=== PATIENT | male | born 1950 | race Caucasian/White ===

== ENCOUNTER 2017-04-24 13:21 | Emergency (ER) | payer OTHER, MEDICARE ==
[~2017-04-24] VITALS: Ht 176.5 cm; Wt 123.2 kg
[~2017-04-24 13:21] MED LIST: HYDC25 PO; LEVO75TA PO
[2017-04-24 13:25] VITALS: TEMP 36.9; Ht 176.5 cm; Wt 123.2 kg
[2017-04-24] MEDS ORDERED: ALBUT/IPRATROP 3MG/0.5MG NEB 3 ML VIAL INH STA ×2 (13:37→15:20)
--- NOTE | 2017-04-24 13:43 | EMERGENCY ROOM VISIT NOTE ---
History First contact with patient: 13:31 Chief Complaint: CONGESTION Stated Complaint: COUGH, LUNGS FEEL FULL History of Present Illness The patient is a 66 year old male who presents to the Emergency Room via private vehicle accompanied by female with complaints of "cough, lungs feel full ". The patient states that approximately 10 days ago, he began with chest congestion that was more like a cough. He states that this progressed into sinus congestion, and then a productive cough, with yellow/white foamy sputum. He states he has been taking Advil Cold and Sinus without relief. He has been feeling intermittent fevers and chills. He states that he has minimal chest pain post coughing. He states that his lungs feel sore. He has a history of bronchitis, but denies pneumonia. He denies history of blood clots, heart troubles or recent antibiotic use. He denies abdominal pain. Review of Systems A complete 10-point Review of Systems was discussed with the patient, with pertinent positives and negatives listed in the History of Present Illness. All remaining Review of Systems questions can be considered negative unless otherwise specified. Past Medical/Surgical History High blood pressure Family History Diabetes, heart disease, high blood pressure. Social History Smoking Status: Current Some Day Smoker Social History: Patient lives at home with . Is employed part-time. Feel safe at home. Admits to tobacco and alcohol use. Current/Historical Medications Scheduled Hydrochlorothiazide (Hydrochlorothiazide), 25 MG PO QAM Levothyroxine Sodium (Synthroid), 75 MCG PO QAM Allergies Coded Allergies: No Known Allergies (Verified , 04/24/17) Physical Exam Vital Signs Date Time Temp Pulse Resp B/P (MAP) Pulse Ox O2 Delivery O2 Flow Rate FiO2 04/24/17 18:42 92 16 125/71 93 04/24/17 18:22 96 Room Air 04/24/17 17:33 87 Room Air 04/24/17 17:33 Nasal Cannula 2.0 04/24/17 17:11 80 22 128/79 95 Room Air 04/24/17 16:43 63 04/24/17 15:56 63 18 93 Room Air 04/24/17 15:27 64 22 144/83 91 Room Air 04/24/17 13:51 65 04/24/17 13:44 Room Air 04/24/17 13:42 Room Air 04/24/17 13:25 36.9 70 20 173/102 91 Room Air Physical Exam VITAL SIGNS - Vital signs and nursing notes were reviewed. Patient is afebrile , hypertensive at 173/102, non-tachycardic and is saturating on room air at 91%. GENERAL -66-year-old male appearing his stated age who is in no acute distress. Communicates well with provider and answers questions appropriately. SKIN - Without rashes. No petechial rashes appreciated. HEAD - NC/AT. EYES - PERRL with EOMI bilaterally. Sclera anicteric. Palpebral conjunctiva pink and moist with no injection noted. EARS - No deformities of external structures noted on gross examination bilaterally. There are 2 small hearing aids indwelling. NOSE - Midline and without cyanosis. No epistaxis or purulent drainage noted. Septum midline without deviation or septal hematoma noted. MOUTH/OROPHARYNX - Without perioral cyanosis. Buccal mucosa pink and moist and without leukoplakia. Tongue midline with equal elevation of palate bilaterally. No tonsillar hypertrophy, erythema, or exudates noted. Fair dentition noted. NECK - Neck with FROM. Supple to palpation. No meningismus. LUNGS - Chest wall symmetric without accessory muscle use, intercostals retractions, or central cyanosis. There is wheezing, and diminished breath sounds noted bilaterally. CARDIAC - RRR with S1/S2. No murmur, rubs, or gallops appreciated. ABDOMEN - Abdominal contour without pulsations or visible masses. BS normoactive all four quadrants. No tenderness, palpable masses, hepatosplenomegaly, or ascites noted. Medical Decision & Procedures ER Provider Diagnostic Interpretation: CHEST 2 VIEWS ROUTINE HISTORY:66 yearsMaleCough, congestion, fever x 10 days COMPARISON: None available TECHNIQUE: Frontal and lateral views of the chest FINDINGS: Cardiomediastinal and hilar silhouettes are within normal limits. Lungs are mildly hypoinflated with bronchovascular crowding. There is no pneumothorax, pleural effusion, focal airspace consolidation or overt pulmonary edema. The bones are grossly intact. IMPRESSION: Mild pulmonary hypoinflation without acute cardiopulmonary process. The above report was generated using voice recognition software. It may contain grammatical, syntax or spelling errors. Electronically signed by: Jalil Blanco M.D. 04/24/2017 2:32 PM Dictated Date/Time: 04/24/2017 2:31 PM Laboratory Results 04/24/17 14:05 Red Blood Count 5.31, Mean Corpuscular Volume 86.4, Mean Corpuscular Hemoglobin 29.6, Mean Corpuscular Hemoglobin Concent 34.2, Mean Platelet Volume 9.5, Neutrophils (%) (Auto) 46.1, Lymphocytes (%) (Auto) 46.3, Monocytes (%) (Auto) 5.3, Eosinophils (%) (Auto) 1.5, Basophils (%) (Auto) 0.5, Neutrophils # (Auto) 4.76, Lymphocytes # (Auto) 4.78, Monocytes # (Auto) 0.55, Eosinophils # (Auto) 0.15, Basophils # (Auto) 0.05 04/24/17 14:05 Test 04/24/17 14:05 04/24/17 14:11 White Blood Count 10.32 K/uL (4.8-10.8) Red Blood Count 5.31 M/uL (4.7-6.1) Hemoglobin 15.7 g/dL (14.0-18.0) Hematocrit 45.9 % (42-52) Mean Corpuscular Volume 86.4 fL (80-100) Mean Corpuscular Hemoglobin 29.6 pg (25-34) Mean Corpuscular Hemoglobin Concent 34.2 g/dl (32-36) Platelet Count 167 K/uL (130-400) Mean Platelet Volume 9.5 fL (7.4-10.4) Neutrophils (%) (Auto) 46.1 % Lymphocytes (%) (Auto) 46.3 % Monocytes (%) (Auto) 5.3 % Eosinophils (%) (Auto) 1.5 % Basophils (%) (Auto) 0.5 % Neutrophils # (Auto) 4.76 K/uL (1.4-6.5) Lymphocytes # (Auto) 4.78 K/uL (1.2-3.4) Monocytes # (Auto) 0.55 K/uL (0.11-0.59) Eosinophils # (Auto) 0.15 K/uL (0-0.5) Basophils # (Auto) 0.05 K/uL (0-0.2) RDW Standard Deviation 42.5 fL (36.4-46.3) RDW Coefficient of Variation 13.4 % (11.5-14.5) Immature Granulocyte % (Auto) 0.3 % Immature Granulocyte # (Auto) 0.03 K/uL (0.00-0.02) Nucleated RBC Absolute Count (auto) 0.09 K/uL (0-0) Nucleated Red Blood Cells % 0.9 % Prothrombin Time 10.9 SECONDS (9.0-12.0) Prothromb Time International Ratio 1.0 (0.9-1.1) Activated Partial Thromboplast Time 28.5 SECONDS (21.0-31.0) Partial Thromboplastin Ratio 1.1 Anion Gap 8.0 mmol/L (3-11) Est Creatinine Clear Calc Drug Dose 100.2 ml/min Estimated GFR () 95.8 Estimated GFR (Non- 82.6 BUN/Creatinine Ratio 20.2 (10-20) Calcium Level 9.1 mg/dl (8.5-10.1) Total Bilirubin 0.5 mg/dl (0.2-1) Aspartate Amino Transf (AST/SGOT) 22 U/L (15-37) Alanine Aminotransferase (ALT/SGPT) 30 U/L (12-78) Alkaline Phosphatase 71 U/L (45-117) Total Protein 7.6 gm/dl (6.4-8.2) Albumin 3.8 gm/dl (3.4-5.0) Globulin 3.8 gm/dl (2.5-4.0) Albumin/Globulin Ratio 1.0 (0.9-2) Bedside Troponin I < 0.030 ng/ml (0-0.045) Medications Administered Medications (Trade) Dose Ordered Sig/Grace Route Start Time Stop Time Status Last Admin Dose Admin Albuterol/ Ipratropium (Duoneb) 3 ml NOW STAT INH 04/24/17 13:37 04/24/17 13:39 DC 04/24/17 13:57 3 ML Albuterol/ Ipratropium (Duoneb) 12 ml ONE STAT INH 04/24/17 15:20 04/24/17 15:22 DC 04/24/17 15:20 12 ML Albuterol (Ventolin Hfa Inhaler) 2 puffs NOW STAT INH 04/24/17 18:19 04/24/17 18:20 DC 04/24/17 18:37 2 PUFFS Medical Decision Patient was seen and evaluated as above. After obtaining a thorough history and physical examination IV access was initiated and the above workup was performed. Chest x-ray negative for acute process. Bedside EKG reveals sinus rhythm with first-degree AV block. Patient was informed upon this finding. CBC reveals no leukocytosis or anemia. There are absolute nucleated RBC. These were not identified in previous samples. Coag studies unremarkable. Patient's CMP reveals BUN elevated at 19. Creatinine 0.96, glucose 126. Troponin negative. I suspect the patient is likely experiencing bronchitis. He was given a 15 minute DuoNeb was reevaluated and feeling somewhat better. He was then given an hour-long and feeling much better. He was noted to be hypoxic, however after repositioned the oxygen was discontinued and he continued to hold appropriate oxygen saturations. Ambulatory pulse ox was obtained and found to be improved. Patient appears stable for outpatient management. He'll be given an albuterol inhaler for departure. He was educated upon worrisome symptoms which to return, had questions for discharge, and was discharged home in good condition. Patient was seen and evaluated by my attending. In evaluation treatment this patient following differential diagnoses were entertained: Pneumonia, influenza, bronchitis, among others. He was called today to see how he was doing. [address] call [address] place. He was doing well and will follow up today at 3:30 PM with is primary care provider. He is also to follow up regarding the absolute nucleated RBC elevation. Impression Primary Impression: Bronchitis Departure Information Dispostion Home / Self-Care Condition GOOD Referrals Damaso Venegas M.D. (PCP) Patient Instructions My [facility] Additional Instructions You were seen in the emergency department for your chest congestion, trouble breathing. At this time it is believed you're expecting bronchitis. Please use the albuterol inhaler with the chamber, 2 puffs every 4-6 hours as needed for wheezing. Please keep your scheduled follow-up with your family doctor tomorrow. Please rest, stay well-hydrated Please return to the emergency department with any new/concerning symptoms..
--- NOTE | 2017-04-24 14:33 | DIAGNOSTIC IMAGING REPORT ---
CHEST 2 VIEWS ROUTINE HISTORY:66 yearsMaleCough, congestion, fever x 10 days COMPARISON: None available TECHNIQUE: Frontal and lateral views of the chest FINDINGS: Cardiomediastinal and hilar silhouettes are within normal limits. Lungs are mildly hypoinflated with bronchovascular crowding. There is no pneumothorax, pleural effusion, focal airspace consolidation or overt pulmonary edema. The bones are grossly intact. IMPRESSION: Mild pulmonary hypoinflation without acute cardiopulmonary process. The above report was generated using voice recognition software. It may contain grammatical, syntax or spelling errors. Electronically signed by: Jalil Blanco M.D. 04/24/2017 2:32 PM Dictated Date/Time: 04/24/2017 2:31 PM
[2017-04-24 14:34] LABS: BASO % 0.5 %; BASO ABS # 0.05 K/uL (0-0.2); COMPLETE YES; EOS % 1.5 %; HEMATOCRIT 45.9 % (42-52); IG% 0.3 %; LYMPH % 46.3 %; LYMPH ABS # 4.78 K/uL (1.2-3.4); MEAN CELL VOLUME 86.4 fL (80-100); MEAN CORPUSCULAR HEMOGLOBIN 29.6 pg (25-34); MEAN CORPUSCULAR HGB CONC 34.2 g/dl (32-36); MEAN PLATELET VOLUME 9.5 fL (7.4-10.4); MONO % 5.3 %; NEUT % 46.1 %; PLATELET COUNT 167 K/uL (130-400); RED BLOOD COUNT 5.31 M/uL (4.7-6.1); WHITE BLOOD COUNT 10.32 K/uL (4.8-10.8)
[2017-04-24 14:44] LABS: PARTIAL THROMBOPLASTIN RATIO 1.1; PROTHROMBIN TIME (PATIENT) 10.9 SECONDS (9.0-12.0)
[2017-04-24 14:47] LABS: BUN/CREATININE RATIO 20.2 (10-20); CALCIUM 9.1 mg/dl (8.5-10.1); CREATININE 0.96 mg/dl (0.60-1.40); POTASSIUM 3.9 mmol/L (3.5-5.1)
[2017-04-24] MEDS ORDERED: HYDR25TA5 PO (15:02)
--- NOTE | 2017-04-24 15:22 | EMERGENCY ROOM VISIT NOTE ---
ED Visit Note First contact with patient: 13:31 66-year-old male with cough and congestion was fully evaluated by Hay Jim. Please see his note. I also independently evaluated the patient. The patient did have wheezes in all simons. Pulse ox on room air was 92%. Blood pressure was elevated. Chest x-ray does not reveal pneumonia.
[2017-04-24 15:56] VITALS: PULSE 63; O2SAT 93
[2017-04-24] MEDS ORDERED: ALBUTEROL HFA 8 GM INHALER INH STA (18:19)
[2017-04-24 18:42] VITALS: BP 125/71; PULSE 92; O2SAT 93
== END 2017-04-24 18:43 | disposition home or self-care (01) ==
LOC: C.EDB 13:23 → C.EDC 18:43
DX: J40 Bronchitis, not specified as acute or chronic (principal); I10 Essential (primary) hypertension; Z83.3 Family history of diabetes mellitus; Z82.49 Family history of ischemic heart disease and other diseases of the circulatory system; F17.200 Nicotine dependence, unspecified, uncomplicated

== ENCOUNTER → 2018-02-26 | Outpatient (CLI) | payer OTHER, MEDICARE ==
[~2018-02-26] MED LIST changes: -HYDC25 PO; +HYDR25TA5 PO
[2018-02-26 14:11] LABS: HEMATOCRIT 45.1 % (42-52); HEMOGLOBIN 15.3 g/dL (14.0-18.0); MEAN CELL VOLUME 88.1 fL (80-100); MEAN CORPUSCULAR HEMOGLOBIN 29.9 pg (25-34); MEAN CORPUSCULAR HGB CONC 33.9 g/dl (32-36); MEAN PLATELET VOLUME 10.2 fL (7.4-10.4); PLATELET COUNT 184 K/uL (130-400); RED CELL DISTRIBUTION WIDTH CV 13.8 % (11.5-14.5); RED CELL DISTRIBUTION WIDTH SD 44.5 fL (36.4-46.3); WHITE BLOOD COUNT 16.38 K/uL (4.8-10.8)
[2018-02-26 14:12] LABS: BASO % 0.5 %; BASO ABS # 0.09 K/uL (0-0.2); EOS % 0.7 %; EOS ABS # 0.12 K/uL (0-0.5); IG# 0.04 K/uL (0.00-0.02); LYMPH % 66.5 %; MONO % 2.7 %; MONO ABS # 0.45 K/uL (0.11-0.59); NEUT % 29.4 %; NEUT ABS # 4.78 K/uL (1.4-6.5)
[2018-02-26 14:45] LABS: ALBUMIN 4.1 gm/dl (3.4-5.0); ALKALINE PHOSPHATASE 62 U/L (45-117); ALT/SGPT 53 U/L (12-78); AST/SGOT 33 U/L (15-37); BLOOD UREA NITROGEN 20 mg/dl (7-18); CALCIUM 9.7 mg/dl (8.5-10.1); CARBON DIOXIDE 27 mmol/L (21-32); CREATININE 1.11 mg/dl (0.60-1.40); GLUCOSE 105 mg/dl (70-99); SODIUM 138 mmol/L (136-145); TOTAL PROTEIN 7.9 gm/dl (6.4-8.2)
== END | disposition home or self-care (01) ==
LOC: C.LABBFT 09:06
PROVIDERS: ATTEND Internal Medicine Hematology & Oncology
DX: C91.10 Chronic lymphocytic leukemia of B-cell type not having achieved remission (principal)

== ENCOUNTER 2019-07-31 06:13 | Inpatient (IN) ==
--- NOTE | 2019-07-05 11:00 | Anesthesiology Consultation ---
Date of Service July 05, 2019 Assessment & Plan (1) Encounter for pre-operative examination: Chart Review Chart Review: Pending: Refer to Additional Notes / Consult section (awaiting preop testing results) and Patient seen in Pre Admission Testing History Surgery Operation Date: 07/31/19 10:30 Proposed Procedures p Left Total Knee Arthroplasty - Kris Hubbard MD Height/Weight Height: 5 ft 9 in Weight: 120.7 kg Allergies Allergy/AdvReac Type Severity Reaction Status Date / Time No Known Allergies Allergy Verified 06/28/19 10:37 Medications Home Medications Medication Instructions Recorded Confirmed Last Taken aspirin [Aspir-81] 81 mg PO QAM 06/28/19 06/28/19 Unknown atorvastatin 10 mg PO HS 06/28/19 06/28/19 Unknown hydrochlorothiazide 25 mg PO QAM 06/28/19 06/28/19 Unknown levothyroxine 75 mcg PO QAM 06/28/19 06/28/19 Unknown metformin 500 mg PO BID 06/28/19 06/28/19 Unknown naproxen sodium [Aleve] 220 mg PO BID PRN 06/28/19 06/28/19 Unknown Past Medical History Medical History Arthritis Diabetes mellitus, type 2 Hyperlipidemia Hypertension Hypothyroidism 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 BROOKS-DX'[id number] 2016 Exercise / Class Metabolic Activity II 4-5 Yardwork/Stairs/Walk up hill Past Family History Family History Mother Family history of diabetes mellitus Past Surgical History Surgical History History of arthroscopy R/L KNEE History of bowel resection FOR PERFORATED DIVERTICULITIS History of herniorrhaphy Social History Smoking Status: Light tobacco smoker tobacco type: pipe Smoking cigarettes per day: PIPE 1 X A DAY X MANY YRS Do You Dip or Chew Tobacco: Yes (1 POUCH PER WEEK) Smoking End Date: QUIT CIGARETTES 20 YRS AGO Hx Alcohol Use: Yes Alcohol type: beer, wine and hard liquor alcohol intake frequency: a few times a week Hx Substance Use: No Physical Exam Vital Signs Last Vital Signs Temp 98.2 F 07/05/19 10:42 Pulse 56 L 07/05/19 10:42 Resp 18 07/05/19 10:42 BP 145/89 H 07/05/19 10:42 Pulse Ox 97 07/05/19 10:42 ENMT Mouth: + dentures (Partial lower) Thyromental Distance: > or= 3.5 Finger Breadths Mallampati Class: II Neck normal visual inspection Respiratory normal respiratory effort Auscultation: lungs clear to auscultation bilaterally Cardiovascular Rate/Rhythm: regular rate and regular rhythm Heart Sounds: + murmur (2/6 JORDY) Vessels: no carotid bruit Testing Electrocardiogram Date: 07/05/19 Sinus bradycardia with 1st degree A-V block, rate 54 bpm Otherwise normal ECG When compared with ECG of 24-APR-2017 13:55, No significant change was found
[2019-07-05 11:41] LABS: BUN Creatinine Ratio 24.4 (10-20); Calcium 9.3 mg/dl (8.5-10.1); Creatinine Clr Calc Pharmacy 102.2 ml/min; Est GFR (African American) 102.1; Est GFR (Non-African American) 88.1
[2019-07-05 11:43] LABS: Partial Thromboplastin Time 27.4 Seconds (21.0-31.0); Prothrombin Time 10.5 Seconds (9.0-12.0)
--- NOTE | 2019-07-05 12:05 | XRay Report ---
XR chest Pre-admission PA/Lat HISTORY: 68 years-old Male PAT preoperative exam. No acute chest complaints COMPARISON: Chest radiograph 04/24/2017 TECHNIQUE: PA and lateral views of the chest FINDINGS: Cardiomediastinal and hilar silhouettes are within normal limits. No pneumothorax, pleural effusion, focal airspace consolidation or overt pulmonary edema. Bones of the chest appear grossly intact. IMPRESSION: No acute process. The above report was generated using voice recognition software. It may contain grammatical, syntax o r spelling errors. Electronically signed by: Jalil Blanco M.D. 07/05/2019 12:04 PM
[2019-07-05 12:07] LABS: Estimated Average Glucose 148 mg/dl; Hemoglobin A1C 6.8 % (4.5-5.6)
[2019-07-05 12:36] LABS: Hematocrit (blood only) 43.7 % (42-52); Hemoglobin 14.8 g/dL (14.0-18.0); Mean Corpuscular Hemoglobin 30.3 pg (25-34); Mean Corpuscular Hgb Conc 33.9 g/dL (32-36); Mean Corpuscular Volume 89.5 fL (80-100); Mean Platelet Volume 10.4 fL (7.4-10.4); Platelet Count 178 K/uL (130-400); RDW Coefficient of Variation 13.7 % (11.5-14.5); Red Blood Count 4.88 M/uL (4.7-6.1); White Blood Count 17.11 K/uL (4.8-10.8)
[2019-07-05 12:40] LABS: Basophils # (auto) 0.07 K/uL (0-0.2); Basophils % (auto) 0.4 %; Eosinophils % (auto) 0.6 %; Immature Granulocytes # (auto) 0.04 K/uL (0.00-0.02); Immature Granulocytes % (auto) 0.2 %; Lymphocytes # (auto) 11.33 K/uL (1.2-3.4); Lymphocytes % (auto) 66.2 %; Monocytes # (auto) 0.55 K/uL (0.11-0.59); Monocytes % (auto) 3.2 %; Neutrophils # (auto) 5.02 K/uL (1.4-6.5); Neutrophils % (auto) 29.4 %; Smudge Cells Present
--- NOTE | 2019-07-30 10:22 | History and Physical Report ---
DATE OF ADMISSION: 07/31/2019 CHIEF COMPLAINT: Chronic left knee pain. HISTORY OF PRESENT ILLNESS: This is a 68-year-old male patient of Dr. Hubbard'jose complaining of chronic left knee pain, longstanding, now progressively getting worse. The patient has failed conservative treatment including intra-articular injections, anti-inflammatories, home exercise program and the use of a wrap. The patient has increased pain with weightbearing activities and his pain does interfere with his activities of daily living. The patient has been diagnosed with end-stage osteoarthritis per clinical and radiographic exams and wishes to proceed with a left total knee arthroplasty. PAST MEDICAL HISTORY: Hypertension, hypothyroidism, chronic lymphocytic leukemia, sciatica, kidney stones, history of hepatitis. SOCIAL HISTORY: Nonsmoker, occasional drinker. PAST SURGICAL HISTORY: Bilateral knees, hernia and abdomen. FAMILY HISTORY: Noncontributory. REVIEW OF SYSTEMS: Chronic left knee pain, otherwise denies any shortness of breath, chest pain, nausea, vomiting or any other joint complaints. MEDICATIONS: 1. Aspirin 81 mg daily. 2. Hydrochlorothiazide 25 mg daily. 3. Metformin 500 mg twice daily. 4. Atorvastatin 20 mg one-half tablet daily. 5. Levothyroxine 75 mcg daily. ALLERGIES: No known drug allergies. PHYSICAL EXAMINATION: GENERAL: Well-developed, well-nourished 68-year-old male in no acute distress. He is alert and oriented x3 and pleasant. HEENT: Normocephalic, atraumatic. Extraocular motions are intact. Pupils are equal and reactive to light. HEART: Regular rate and rhythm, no murmurs. LUNGS: Clear. ABDOMEN: Soft, nontender, bowel sounds present. EXTREMITIES: Left lower extremity: Left knee, limited range of motion of 0-125 degrees with a varus deformity. He has a mild effusion. He has crepitation with medial joint line tenderness. He has 5/5 strength. NEUROLOGIC: Neurovascularly, he is intact in his left lower extremity. DIAGNOSES: Left knee end-stage osteoarthritis, hypertension, chronic lymphocytic leukemia, hypothyroidism, borderline diabetes, sciatica, kidney stones, history of hepatitis. PLAN: The patient was advised of his diagnosis. Indications, risks, benefits, postop course have all been reviewed. The patient wished to proceed with a left total knee arthroplasty. Necessary consent forms, preoperative testing and clearances will be obtained.
[~2019-07-31 06:13] MED LIST changes: +ACETAMINOPHEN 500 MG TAB PO SCH; +CEFAZOLIN 3000MG 72.5 ML IV SCH; +CeleBREX 200 MG CAP PO SCH; +FAMOTIDINE 20 MG TAB PO SCH; +GABAPENTIN 300 MG CAP PO SCH; -HYDR25TA5 PO; -LEVO75TA PO; +LR 500ML BOLUS, THEN 15ML/HR IV SCH; +METOCLOPRAMIDE HCL 10 MG TABLET PO SCH; +ROPIVACAINE 0.5% HCL/PF 150 MG, BUPIVACAINE 0.5% MPF 30 ML, EPINEPHrine 30MG/30ML (OR U... INSTIL SCH; +TRANEXAMIC ACID 1,000 MG **IV Pre-op IV SCH
[2019-07-31] MEDS ORDERED: fentaNYL citrate 100 MCG/2 ML VIAL ONE (06:24)
[2019-07-31] MEDS ORDERED: PROPOFOL IV EMULSION 10 MG/ML 20 ML VIAL IV ONE ×3 (06:24→09:12)
[2019-07-31] MEDS ORDERED: MIDAZOLAM HCL 1 MG/ML 2ML VIAL ONE (06:24)
[2019-07-31] MEDS ORDERED: ROPIVACAINE 0.5% 5 MG/ML 30 ML VIAL ONE (06:27)
[2019-07-31] MEDS ORDERED: BUPIVACAINE 0.5 % 5 MG/1 ML PF 10ML VIAL ONE (06:27)
[2019-07-31] MEDS ORDERED: TRANEXAMIC ACID 1,000 MG **IV Intra-op IV SCH (06:30)
--- NOTE | 2019-07-31 07:01 | History & Physical Bridge Note ---
Date of Service July 31, 2019 History & Physical Bridge Note I have examined the patient, reviewed the History & Physical and in the interval since the performance of the History & Physical I have noted the following changes of clinical significance: no changes noted
[2019-07-31] MEDS ORDERED: BACITRACIN INJ 50,000 UNIT VIAL ONE (07:05)
[2019-07-31] MEDS ORDERED: ORTHO JOINT ANESTHETIC ONE (07:05)
[2019-07-31] MEDS ORDERED: LABETALOL HCL IV 5 MG/ML 20ML IV ONE (08:52)
[2019-07-31] MEDS ORDERED: GLYCOPYRROLATE 0.2 MG/ML VIAL ONE (08:59)
--- NOTE | 2019-07-31 10:42 | Post Operative Brief Note ---
Immediate Post Op Note v1 Date of Surgery July 31, 2019 Pre & Post Diagnosis Operation Date: 07/31/19 08:40 Pre-Op Diagnosis: LEFT KNEE OSTEOARTHRITIS Post-Op Diagnosis: LEFT KNEE OSTEOARTHRITIS I identified the patient and participated in the time-out.: Yes Procedure Operation Date: 07/31/19 08:40 Actual Procedures p Left Total Knee Arthroplasty(Left) - Kris Hubbard MD Surgeon Kris Hubbard MD Brick Carrier Edilberto JARAMILLO Estimated Blood Loss 5 Findings Consistent with Post-Op Diagnosis Specimens Bone cuts Drains Hemovac Drain Anesthesia Type MAC Spinal Regional Complications none Disposition Accompanied Patient To Recovery: No Disposition: Recovery Room Overlapping Procedure I was present for: the critical portions of procedure.
[2019-07-31] MEDS ORDERED: ePHEDrine sulfate 50 MG/ML AMP IV PRN (10:43)
[2019-07-31] MEDS ORDERED: ATROPINE SULFATE 0.1 MG/ML 10ML SYR IV PRN (10:43)
--- NOTE | 2019-07-31 11:35 | Operative Report ---
Post Operative Report Pre & Post Diagnosis Operation Date: 07/31/19 08:40 Pre-Op Diagnosis: LEFT KNEE OSTEOARTHRITIS Post-Op Diagnosis: LEFT KNEE OSTEOARTHRITIS I identified the patient and participated in the time-out.: Yes Procedure Operation Date: 07/31/19 08:40 Actual Procedures p Left Total Knee Arthroplasty(Left) - Kris Hubbard MD Surgeon Kris Hubbard MD Bag Loader Edilberto JARAMILLO Estimated Blood Loss 5 Findings Consistent with Post-Op Diagnosis Specimens Bone cuts Drains 2 Hemovac Anesthesia Type MAC Spinal Regional Complications none Disposition Accompanied Patient To Recovery: No Disposition: Recovery Room Indications 68-year-old male with chronic bilateral end-stage osteoarthritis of the knees. He has varus knees [id number] medial compartment bilaterally with a left has more bone loss and flattening of the medial femoral condyle and tibia plateau than the right. He has moderate patellofemoral osteoarthritis. Description of Procedure Patient taken to the operating room the size under spinal MAC regional anesthesia. Patient was placed supine on the operating table. A pneumatic tourniquet was placed about the mildly obese left upper thigh. The left lower extremity was prepped and draped in sterile fashion. Knee exam demonstrated 5 to 10 degree flexion contracture with flexion to 120 degrees. The leg was elevated exsanguinated with an Esmarch bandage and pneumatic tourniquet was raised to 350 millimeters of mercury. Skin incised sharply in longitudinal fashion. Subcutaneous flaps elevated. Incision was made through the medial retinaculum extending up in the mid third of the quadriceps tendon and down to the medial tibial tubercle. Intra-articular findings demonstrated medial compartment osteoarthritis grade 4 [id number] with moderate patellofemoral arthritis. The [employer] triathlon total knee arthroplasty system was used. To expose the knee the infrapatellar fat pad was resected. The meniscal remnants and cruciate ligaments were resected. The anterior fat pad over the femur in the area of the anterior flange of the femoral component was resected. Lateral synovial bands release. The femur was exposed. An intramedullary drill hole was made into the canal. A guide kat was placed. Distal femoral cutting guide was adjusted to resect a 5 degree valgus cut with 10 millimeters distal femur resected. The knee was extended and a subperiosteal peel lateral release was performed around the patella. Patella width was measured and width was reproduced using a freehand cut technique and a 36 symmetrical patella component. The 3 drill holes were made and the excess lateral facet was beveled off to prevent any impingement. Attention was taken back to the femur which was exposed with retractors and the femoral sizing guide was pinned in position. The drill holes were placed in 3 of external rotation to match epicondylar axis. Femur sized for a 7 component. The 4-in-1 cutting block was placed and then the anterior posterior and chamfer cuts are made. The tibia was then subluxed. The external tibial cutting guide was just to make a perpendicular cut to the long axis of the tibia below the most deficient bone loss side. A lamina insurance checker was used and the flexion extension gaps were balanced. All posterior osteophytes removed. All meniscal remnants were resected. The tibia exposed and the trial tibial component size 6 was externally rotated in line with the tibial tubercle and pinned in position. The punch for stem was used. The notch cutting device was centered appropriately and the femoral notch cut was made. The femoral trial was inserted. Trial tibial inserts were placed and size 13 gave balanced ligaments through flexion and extension. Patella tracking was assessed. The patella tracked central. The trial components were then removed and the orthomix anesthetic cocktail was injected per protocol. The knee was then copiously irrigated with pulsatile lavage antibiotic solution. Final components were then cemented with Simplex cement. Final components were left 7 posterior stabilized femoral, 6 universal baseplate, X3 polyethylene symmetrical 36 x 10 mm patella, size 613 mm thickness X3 polyethylene tibial bearing insert posterior stabilized. While the cement cured the Betadine soak was used per protocol. After cement cured further pulsatile lavage irrigation performed and 2 Hemovac drains were brought out laterally. The quadriceps tendon and medial retinaculum were closed with figure of 8 #1 Vicryl sutures. The knee was taken through full range of motion and the repair was secure. The subcutaneous tissues were closed with 2-0 Vicryl sutures. Skin was closed with kirsten. Sterile dressings were applied. Patient procedure well. Edilberto JARAMILLO was my physician server assistant who assisted in patient positioning prepping and draping,leg positioning ,soft tissue retraction and instrument management and participated in the closing and will participate in postoperative care of the patient. The patient tolerated the procedure well. I attest to the content of the Intraoperative Record and any orders documented therein. Any exceptions are noted below.
--- NOTE | 2019-07-31 11:41 | XRay Report ---
XR knee LT 2V routine CLINICAL HISTORY: Postoperative evaluation. COMPARISON: None FINDINGS: Alignment of the total left knee arthroplasty is anatomic. There is no fracture or unexpec gerard radiopaque foreign body. There are drains and skin kirsten. IMPRESSION: Expected findings following total left knee arthroplasty. Electronically signed by: Garrett García M.D. 07/31/2019 11:40 AM
[2019-07-31] MEDS ORDERED: METOCLOPRAMIDE HCL INJ 5 MG/ML 2 ML VIAL IV PRN (12:22)
[2019-07-31] MEDS ORDERED: MAGNESIUM HYDROXIDE SUSP 30 ML UDC PO PRN (12:22)
[2019-07-31] MEDS ORDERED: ONDANSETRON INJ 2 MG/ML 2 ML VIAL IV PRN (12:22)
[2019-07-31] MEDS ORDERED: NALOXONE HCL 0.4 MG/1 ML VIAL/CARP IV PRN (12:22)
[2019-07-31] MEDS ORDERED: bisacodyL 10 MG SUPP PR PRN (12:22)
--- NOTE | 2019-07-31 12:39 | Hospitalist Consultation ---
Date of Consultation July 31, 2019 Assessment & Plan (1) Diabetes mellitus: Last hemoglobin A1c checked on July 05, 2019 and it was 6.8. While in the hospital prefer not to use metformin and rather use sliding scale insulin due to possible adverse effects and hypoglycemia while patient is hospitalized. Plan to consult pharmacy for the glycemic control. Present on Admission?: Yes (2) Hypertension: Blood pressure appears to be normal. Continue aspirin 81 mg, and hydrochlorothiazide 25 mg p.o. every morning. Present on Admission?: Yes (3) Hyperlipidemia: Fasting lipid panel pending, continue atorvastatin 10 mg p.o. nightly. Present on Admission?: Yes (4) Hypothyroidism: TSH pending, continue levothyroxine 75 MCG's daily. Present on Admission?: Yes (5) DVT prophylaxis: Per primary team. Continue SCDs and teds for now until primary team okay with medical anticoagulation. Present on Admission?: Yes History of Present Illness Reason for Consultation: Medical management of chronic issues Attending Physician: Kris Hubbard MD History of Present Illness Patient is a 68 years old male with past medical history of diabetes mellitus, hypothyroidism, hypertension and hyperlipidemia who underwent today left total knee arthroplasty by Dr. Hubbard. Patient tolerated procedure well. Patient said he is A1c is 6-7. He takes metformin. His blood pressure is well controlled and he is compliant with his medication. Patient said that at home he used to take a lot of Aleve for chronic left knee pain. Patient said that his pain tolerance is pretty good. Patient denies fever, chills, headache, chest pain, shortness of breath, frequency, urgency, hematuria, dysuria. Patient is pleasant and his p.o. intake is good. Afebrile. Allergies Allergy/AdvReac Type Severity Reaction Status Date / Time scallops Allergy Intermediate severe Verified 07/31/19 07:04 nausea / vomiting No Known Drug Allergies AdvReac Verified 07/31/19 07:04 Home Medications Home Medications Medication Instructions Recorded Confirmed Type aspirin [Aspir-81] 81 mg PO QAM 06/28/19 07/31/19 History atorvastatin 10 mg PO HS 06/28/19 07/31/19 History hydrochlorothiazide 25 mg PO QAM 06/28/19 07/31/19 History metformin 500 mg PO BID 06/28/19 07/31/19 History levothyroxine 75 mcg tablet 75 mcg PO DAILY 07/19/19 07/31/19 History Patient History Medical History Hepatitis (Acute) per patient in 1969's had hepatitis - "worked in [employer]"- took medication Arthritis Diabetes mellitus, type 2 Hyperlipidemia Hypertension Hypothyroidism 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 BROOKS-DX'D 2016 Surgical History History of arthroscopy R/L KNEE History of bowel resection FOR PERFORATED DIVERTICULITIS History of herniorrhaphy Family History Mother Family history of diabetes mellitus Social History Preferred Language: Ukrainian Communication Ability: Effective Hearing Screener Required: No Beliefs That Will Affect Care: None marital status: Current Living Situation: Spouse Other Information That Helps Us Care for You: No Feels Safe at Home: Yes Safety Concerns: Feels Safe At This Time Smoking Status: Light tobacco smoker Tobacco Type: pipe ; Cigarettes Per Day: PIPE 1 X A DAY X MANY YRS ; Do You Dip or Chew Tobacco: Yes (1 POUCH PER WEEK) ; Smoking End Date: QUIT CIGARETTES 20 YRS AGO ; Second Hand Exposure: Yes (SPOUSE SMOKES) ; Hx Alcohol Use: Yes Alcohol type: beer, wine and hard liquor Hx Substance Use: No Review of Systems Review of Systems: All systems reviewed & are unremarkable except as noted in HPI & below Physical Exam Constitutional: WD/WN, vitals as above well developed and + obese Eyes: PERRL, conjunctivae normal, anicteric sclerae ENMT: external ear and nose normal, oropharynx normal Neck: trachea midline, no thyromegaly Respiratory: normal respiratory effort, lungs clear to auscultation Cardiovascular: RRR, no murmur, no edema Musculoskeletal: no cyanosis or clubbing, extremities motor strength 5/5 Skin: no rashes, warm and dry Neurologic: patellar DTR's 2+ bilat, sensation intact Psychiatric: A+Ox3, euthymic affect Lymphatic: no cervical or axillary lymphadenopathy Results & Data Vital Signs (Past 12 Hours) Vital Signs Temp Pulse Pulse Pulse Resp BP BP 07/31/19 12:06 54 L 16 07/31/19 12:05 52 L 12 121/75 07/31/19 12:00 53 L 16 07/31/19 11:56 56 L 13 07/31/19 11:55 54 L 18 110/76 07/31/19 11:54 36.7 C 07/31/19 11:51 65 16 07/31/19 11:50 54 L 15 117/76 07/31/19 11:45 58 L 12 114/75 07/31/19 11:40 57 L 14 120/77 07/31/19 11:35 59 L 13 117/79 07/31/19 11:30 54 L 12 120/76 07/31/19 11:26 54 L 14 07/31/19 11:25 55 L 12 118/76 07/31/19 11:21 56 L 14 07/31/19 11:20 55 L 15 119/76 07/31/19 11:16 55 L 14 07/31/19 11:15 56 L 14 114/75 07/31/19 11:11 59 L 21 07/31/19 11:10 59 L 20 108/75 07/31/19 11:09 36.9 C 60 67 18 111/70 07/31/19 07:07 36.5 C 58 L 20 161/89 H BP Pulse Ox 07/31/19 12:06 95 07/31/19 12:05 95 07/31/19 12:00 94 07/31/19 11:56 97 07/31/19 11:55 95 07/31/19 11:54 94 07/31/19 11:51 97 07/31/19 11:50 95 07/31/19 11:45 94 07/31/19 11:40 93 07/31/19 11:35 95 07/31/19 11:30 96 07/31/19 11:26 95 07/31/19 11:25 95 07/31/19 11:21 95 07/31/19 11:20 95 07/31/19 11:16 95 07/31/19 11:15 96 07/31/19 11:11 96 07/31/19 11:10 96 07/31/19 11:09 111/70 96 07/31/19 07:07 97 PG Care Time/CCT Total # of Minutes Spent Total Time Spent with Patient: Total time spent is greater than 50% in coordination of care (as documented) at patient's floor/unit and/or counseling patient:
--- NOTE | 2019-07-31 12:51 | Anesthesiology Progress Note ---
Date of Service July 31, 2019 Anesthesia Post Procedure Vital Signs Vital Signs: Temp Pulse Pulse Pulse Resp BP BP 07/31/19 12:45 56 L 16 07/31/19 12:06 54 L 16 07/31/19 12:05 52 L 12 121/75 07/31/19 12:00 53 L 16 07/31/19 11:56 56 L 13 07/31/19 11:55 54 L 18 110/76 07/31/19 11:54 36.7 C 07/31/19 11:51 65 16 07/31/19 11:50 54 L 15 117/76 07/31/19 11:45 58 L 12 114/75 07/31/19 11:40 57 L 14 120/77 07/31/19 11:35 59 L 13 117/79 07/31/19 11:30 54 L 12 120/76 07/31/19 11:26 54 L 14 07/31/19 11:25 55 L 12 118/76 07/31/19 11:21 56 L 14 07/31/19 11:20 55 L 15 119/76 07/31/19 11:16 55 L 14 07/31/19 11:15 56 L 14 114/75 07/31/19 11:11 59 L 21 07/31/19 11:10 59 L 20 108/75 07/31/19 11:09 36.9 C 60 67 18 111/70 07/31/19 07:07 36.5 C 58 L 20 161/89 H BP Pulse Ox 07/31/19 12:45 127/87 96 07/31/19 12:06 95 07/31/19 12:05 95 07/31/19 12:00 94 07/31/19 11:56 97 07/31/19 11:55 95 07/31/19 11:54 94 07/31/19 11:51 97 07/31/19 11:50 95 07/31/19 11:45 94 07/31/19 11:40 93 07/31/19 11:35 95 07/31/19 11:30 96 07/31/19 11:26 95 07/31/19 11:25 95 07/31/19 11:21 95 07/31/19 11:20 95 07/31/19 11:16 95 07/31/19 11:15 96 07/31/19 11:11 96 07/31/19 11:10 96 07/31/19 11:09 111/70 96 07/31/19 07:07 97 Pain Intensity Left Knee: Pain Intensity: 0 Transfer of Care Handoff Completed per policy Notes Mental Status: alert / awake / arousable and participated in evaluation Patient Amnestic to Procedure: Yes Nausea / Vomiting: adequately controlled Pain: adequately controlled Airway Patency, RR, SpO2: stable & adequate BP & HR: stable & adequate Hydration State: stable & adequate Neuraxial Anesthesia: was administered and sensory block is resolving Anesthetic Complications: no major complications apparent
[2019-07-31] MEDS: SODIUM CHLORIDE 0.9% 1000ML 1,000 ML IV SCH ×2 (13:22→21:21)
[2019-07-31] MEDS ORDERED: GLUCAGON FOR INJ 1 MG VIAL SQ PRN (14:23)
[2019-07-31] MEDS ORDERED: DEXTROSE 50% 50 ML SYRINGE IV PRN (14:23)
[2019-07-31] MEDS ORDERED: GLUCOSE 40% GEL 15 GM TUBE PO PRN (14:23)
[2019-07-31] MEDS ORDERED: CARBOHYDRATES FOR HYPOGLYCEMIA PO PRN (14:23)
[2019-07-31] MEDS ORDERED: GLUCOSE 10 TABS/TUBE PO PRN (14:23)
[2019-07-31] MEDS ORDERED: INFLUENZA ADMINISTRATION CHARGE ONE (14:30)
[2019-07-31] MEDS ORDERED: INFLUENZA VACCINE HIGH DOSE 65+ 0.5 ML SYR IM ONE (14:30)
[2019-07-31] MEDS: ACETAMINOPHEN 500 MG TAB PO SCH ×2 (14:40→22:03)
[2019-07-31] MEDS ORDERED: PHARMACY GLYCEMIC MGMT CONSULT PRN (14:55)
--- NOTE | 2019-07-31 15:54 | Pharmacy Report ---
Glycemic Control Consultation - Date of Service July 31, 2019 - Scope Scope: Glycemic Pharmacist consulted for glycemic control and to write orders per [facility] inpatient glycemic control protocol - Objective Weight: 118.7 kg Accuchecks BSG (last 24hrs): 07/31/19 07/31/19 07/31/19 07:07 11:31 12:23 POC Glucose 122 H 110 H 101 H HbA1c: Hemoglobin A1c 6.8 % (4.5-5.6) H 07/05/19 10:44 - Recent Pertinent Medications Outpatient Anti-diabetic Regimen: * metformin Risk Factors for Insulin Resistance: * Recent Surgery - Assessment & Plan Assessment & Plan: ASSESSMENT: * 68yo T2DM male with adequate outpatient control per recent A1c * Pt is maintained on oral antidiabetic agents as an outpatient * Oral agents are not recommended for inpatient use d/t drug interactions, changing PO intake, and difficulty titrating for acute hyper/hypoglycemia. ADA recommends re-initiating outpatient oral agents 1-2 days prior to discharge if/when appropriate if they were held on admission. * Will hold oral agents for admission and utilize SQ basal bolus insulin regimen which is the recommended regimen for inpatient glycemic control. * Will initiate weight based insulin dosing for insulin swapna patient and titrate based on BSG trends. * basal insulin may not be needed based on A1c and pr/post-op BSGs below 150mg/dl PLAN FOR INPATIENT GLYCEMIC CONTROL: * Holding outpatient oral diabetes medications * Basal insulin * Lantus 10 units SQ HS if BSG >180 * Hold if BSG <180 * Bolus insulin * NovoLog per scale ACHS or Q6hrs while NPO * Goal Range: Low 110 mg/dL - High 140 mg/dL * Correction Factor: 25 mg/dL/unit * Nutritional / Prandial insulin per carb ratio of 1 unit per 8 grams CHO consumed * Please note that the plan above was derived based on current level of insulin resistance and hospital stress. These recommendations are appropriate for inpatient admission only. Plan of care upon discharge will need to be reassessed to avoid potential outpatient hypo/hyperglycemia. Thank you.
[2019-07-31] MEDS: CEFAZOLIN 2000MG 2,000 MG/15 ML SYR IV SCH (17:43)
[2019-07-31] MEDS: FERROUS GLUCONATE 324 MG TAB PO SCH (17:44)
[2019-07-31] MEDS: OXYCODONE HCL IR 5 MG TAB (IMMEDIATE RELEASE) PO PRN ×2 (17:46→22:03)
[2019-07-31] MEDS: INSULIN ASPART 100 UNITS/ML 3 ML PEN SC SCH ×2 (17:50→21:29)
[2019-07-31] MEDS ORDERED: METFORMIN HCL 500 MG TAB PO SCH (21:00)
[2019-07-31] MEDS ORDERED: INSULIN GLARGINE SOLOSTAR 100 UNITS/ML 3 ML PEN SC ONE (21:00)
[2019-07-31] MEDS: ASPIRIN 81 MG ECTAB PO SCH (21:21)
[2019-07-31] MEDS: ATORVASTATIN 10 MG TAB PO SCH (21:21)
[2019-07-31] MEDS: SENNA 8.6 MG TAB PO SCH (21:21)
[2019-07-31] MEDS: DOCUSATE SODIUM 100 MG CAP PO SCH (21:21)
[2019-07-31] MEDS: HYDROmorphone INJ 0.5 MG/0.5 ML SYR IV PRN (23:20)
[2019-08-01] MEDS: CEFAZOLIN 2000MG 2,000 MG/15 ML SYR IV SCH (00:38)
[2019-08-01 05:32] LABS: Hematocrit (blood only) 36.8 % (42-52); Hemoglobin 12.3 g/dL (14.0-18.0); Mean Corpuscular Hemoglobin 30.1 pg (25-34); Mean Corpuscular Hgb Conc 33.4 g/dL (32-36); Mean Platelet Volume 10.1 fL (7.4-10.4); Platelet Count 148 K/uL (130-400); RDW Coefficient of Variation 13.9 % (11.5-14.5); Red Blood Count 4.09 M/uL (4.7-6.1); White Blood Count 14.22 K/uL (4.8-10.8)
[2019-08-01] MEDS: OXYCODONE HCL IR 5 MG TAB (IMMEDIATE RELEASE) PO PRN ×4 (05:54→20:41)
[2019-08-01 05:55] LABS: BUN Creatinine Ratio 22.6 (10-20); Calcium 7.9 mg/dl (8.5-10.1); Creatinine Clr Calc Pharmacy 87.6 ml/min; Est GFR (African American) 85.7; Est GFR (Non-African American) 73.9; Potassium 3.9 mmol/L (3.5-5.1)
[2019-08-01] MEDS: ACETAMINOPHEN 500 MG TAB PO SCH ×3 (05:55→21:47)
[2019-08-01] MEDS: LEVOTHYROXINE SODIUM 75 MCG TABLET PO SCH (05:56)
[2019-08-01 06:06] LABS: Thyroid Stimulating Hormone 4.1 uIu/ml (0.300-4.500)
--- NOTE | 2019-08-01 07:22 | Orthopedic Progress Note ---
Date of Service August 01, 2019 Assessment & Plan (1) Osteoarthritis of left knee: Postop day 1 status post left total knee arthroplasty PT and OT protocols. Weightbearing as tolerated. Continue DVT prophylaxis and pain management as written Discharge planning-patient is planning for outpatient PT upon discharge. Subjective Patient sleeping upon entering the room. Easily awoken. States he had a restless night and was unable to sleep much. Complaining of thigh pain where the tourniquet was. States his knee is comfortable at this point in time. Denies any shortness of breath, chest pain, lightheadedness. Physical Exam Physical Exam: Dressings are clean, dry, and intact. Calves are soft and nontender. Neurovascular is intact. Toes are mobile. Hemovac drainage was 150 mL's from the previous shift Results & Data Vital Signs (Past 12 Hours) Vital Signs Temp Pulse Resp BP Pulse Ox 08/01/19 03:26 36.8 C 62 16 123/83 94 07/31/19 23:07 36.6 C 59 L 18 152/92 H 97 Laboratory Results Laboratory Results WBC 14.22 K/uL (4.8-10.8) H 08/01/19 04:45 RBC 4.09 M/uL (4.7-6.1) L 08/01/19 04:45 Hgb 12.3 g/dL (14.0-18.0) L 08/01/19 04:45 Hct 36.8 % (42-52) L 08/01/19 04:45 MCV 90.0 fL (80-100) 08/01/19 04:45 MCH 30.1 pg (25-34) 08/01/19 04:45 MCHC 33.4 g/dL (32-36) 08/01/19 04:45 RDW Std Deviation 46.0 fL (36.4-46.3) 08/01/19 04:45 RDW Coeff of Mariya 13.9 % (11.5-14.5) 08/01/19 04:45 Plt Count 148 K/uL (130-400) 08/01/19 04:45 MPV 10.1 fL (7.4-10.4) 08/01/19 04:45 Immature Gran % (Auto) 0.2 % 07/05/19 10:44 Neut % (Auto) 29.4 % 07/05/19 10:44 Lymph % (Auto) 66.2 % 07/05/19 10:44 Bates % (Auto) 3.2 % 07/05/19 10:44 Eos % (Auto) 0.6 % 07/05/19 10:44 Baso % (Auto) 0.4 % 07/05/19 10:44 Immature Gran # (Auto) 0.04 K/uL (0.00-0.02) H 07/05/19 10:44 Neut # (Auto) 5.02 K/uL (1.4-6.5) 07/05/19 10:44 Lymph # (Auto) 11.33 K/uL (1.2-3.4) H 07/05/19 10:44 Bates # (Auto) 0.55 K/uL (0.11-0.59) 07/05/19 10:44 Eos # (Auto) 0.10 K/uL (0-0.5) 07/05/19 10:44 Baso # (Auto) 0.07 K/uL (0-0.2) 07/05/19 10:44 Smudge Cells Present 07/05/19 10:44 PT 10.5 Seconds (9.0-12.0) 07/05/19 10:44 INR 1.0 (0.9-1.1) 07/05/19 10:44 APTT 27.4 Seconds (21.0-31.0) 07/05/19 10:44 PTT Ratio 1.0 07/05/19 10:44 Sodium 136 mmol/L (136-145) 08/01/19 04:45 Potassium 3.9 mmol/L (3.5-5.1) 08/01/19 04:45 Chloride 106 mmol/L (98-107) 08/01/19 04:45 Carbon Dioxide 24 mmol/L (21-32) 08/01/19 04:45 Anion Gap 6.0 (3-11) 08/01/19 04:45 BUN 24 mg/dl (7-18) H 08/01/19 04:45 Creatinine 1.04 mg/dl (0.6-1.4) 08/01/19 04:45 Est Cr Clr Drug Dosing 87.6 ml/min 08/01/19 04:45 Est GFR ( Amer) 85.7 08/01/19 04:45 Est GFR (Non-Af Amer) 73.9 08/01/19 04:45 BUN/Creatinine Ratio 22.6 (10-20) H 08/01/19 04:45 Glucose 112 mg/dl (70-99) H 08/01/19 04:45 POC Glucose 121 (70-99) H 07/31/19 20:57 Estimat Average Glucose 148 mg/dl 07/05/19 10:44 Hemoglobin A1c 6.8 % (4.5-5.6) H 07/05/19 10:44 Calcium 7.9 mg/dl (8.5-10.1) L 08/01/19 04:45 Albumin 4.0 gm/dl (3.4-5.0) 07/05/19 10:44 Triglycerides 128 mg/dl (0-150) 08/01/19 04:45 Cholesterol 78 mg/dl (0-200) 08/01/19 04:45 LDL Cholesterol, Calc 33 mg/dl 08/01/19 04:45 VLDL Cholesterol, Calc 26 mg/dl 08/01/19 04:45 HDL Cholesterol 19 mg/dl 08/01/19 04:45 Cholesterol/HDL Ratio 4 08/01/19 04:45 TSH 4.100 uIu/ml (0.300-4.500) 08/01/19 04:45 Blood Type AB Negative 07/05/19 10:44 Antibody Screen NEGATIVE 07/05/19 10:44
--- NOTE | 2019-08-01 08:11 | Anesthesiology Progress Note ---
Date of Service August 01, 2019 Anesthesia Post Procedure Vital Signs Vital Signs: Temp Pulse Pulse Pulse Resp BP BP 08/01/19 03:26 36.8 C 62 16 123/83 07/31/19 23:07 36.6 C 59 L 18 152/92 H 07/31/19 18:57 36.7 C 48 L 16 117/70 07/31/19 15:13 36.5 C 49 L 16 126/82 07/31/19 14:15 53 L 16 105/68 07/31/19 13:15 52 L 18 122/76 07/31/19 12:45 56 L 16 127/87 07/31/19 12:15 36.5 C 55 L 16 118/74 07/31/19 12:06 54 L 16 07/31/19 12:05 52 L 12 121/75 07/31/19 12:00 53 L 16 07/31/19 11:56 56 L 13 07/31/19 11:55 54 L 18 110/76 07/31/19 11:54 36.7 C 07/31/19 11:51 65 16 07/31/19 11:50 54 L 15 117/76 07/31/19 11:45 58 L 12 114/75 07/31/19 11:40 57 L 14 120/77 07/31/19 11:35 59 L 13 117/79 07/31/19 11:30 54 L 12 120/76 07/31/19 11:26 54 L 14 07/31/19 11:25 55 L 12 118/76 07/31/19 11:21 56 L 14 07/31/19 11:20 55 L 15 119/76 07/31/19 11:16 55 L 14 07/31/19 11:15 56 L 14 114/75 07/31/19 11:11 59 L 21 07/31/19 11:10 59 L 20 108/75 07/31/19 11:09 36.9 C 60 67 18 111/70 111/70 Pulse Ox 08/01/19 03:26 94 07/31/19 23:07 97 07/31/19 18:57 96 07/31/19 15:13 96 07/31/19 14:15 96 07/31/19 13:15 98 07/31/19 12:45 96 07/31/19 12:15 97 07/31/19 12:06 95 07/31/19 12:05 95 07/31/19 12:00 94 07/31/19 11:56 97 07/31/19 11:55 95 07/31/19 11:54 94 07/31/19 11:51 97 07/31/19 11:50 95 07/31/19 11:45 94 07/31/19 11:40 93 07/31/19 11:35 95 07/31/19 11:30 96 07/31/19 11:26 95 07/31/19 11:25 95 07/31/19 11:21 95 07/31/19 11:20 95 07/31/19 11:16 95 07/31/19 11:15 96 07/31/19 11:11 96 07/31/19 11:10 96 07/31/19 11:09 96 Pain Intensity Left Knee: Pain Intensity: 5 Notes Mental Status: alert / awake / arousable and participated in evaluation Patient Amnestic to Procedure: Yes Nausea / Vomiting: adequately controlled Pain: adequately controlled Airway Patency, RR, SpO2: stable & adequate BP & HR: stable & adequate Hydration State: stable & adequate Neuraxial Anesthesia: was administered and sensory block resolved Anesthetic Complications: no major complications apparent and Pt Satisfied with anesthetic care
[2019-08-01] MEDS: DOCUSATE SODIUM 100 MG CAP PO SCH ×2 (08:20→20:43)
[2019-08-01] MEDS: ASPIRIN 81 MG ECTAB PO SCH ×2 (08:20→20:42)
[2019-08-01] MEDS: FERROUS GLUCONATE 324 MG TAB PO SCH ×2 (08:20→18:13)
[2019-08-01] MEDS: MULTIVITAMIN TAB PO SCH (08:20)
[2019-08-01] MEDS: hydroCHLOROthiazide 25 MG TAB PO SCH (08:20)
[2019-08-01] MEDS: INSULIN ASPART 100 UNITS/ML 3 ML PEN SC SCH ×4 (08:22→22:10)
--- NOTE | 2019-08-01 12:30 | Hospitalist Progress Note ---
Date of Service August 01, 2019 Assessment & Plan (1) Osteoarthritis of left knee: * POD #1 s/p left TKA with Dr. Hubbard * Pain management and DVT proph per ortho * PT/OT with plans for d/c with OPPT * H/H stable at 12.3/36.9 * Continue to monitor (2) Hypertension: * Elevated at 155/94 this morning, however HCTZ 25mg was re-initiated this morning * Will continue to monitor (3) Hypothyroidism: * Patient initially on levothyroxine 50mcg and then 75mcg for past five years * TSH 4.1 today * Discussed recheck as outpatient and possible increase to 88mcg pending results- per patient, he would like to refrain from increasing anything currently (4) Diabetes mellitus: * Last hemoglobin A1c 6.8 on 07/05 * Hold metformin while inpatient * SSI * Pharmacy for glycemic control (5) Hyperlipidemia: * Lipid panel today- triglycerides 128, cholesterol 78, HDL 19, LDL 33 * Continue atorvastatin 10mg (6) CLL (chronic lymphocytic leukemia): * Diagnosed October 2017 -- found on routine health maintenance screening * Of note, patient of [place] with direct exposure to agent orange * Follows with Dr. Sanders as outpatient-- per genetic testing and most recent note, no treatment at this time with good long-term prognosis (7) Constipation: * No BM x 2 days * Senokot and Colace per primary (8) DVT prophylaxis: * Per primary team- SCDs, ASA Supervising Physician Co-Signing Physician Notes Attending Attestation - Chart reviewed, care plan d/w ELLA Draper. I agree w/ the burch components of her documentation. Labs/vitals acceptable. Doing well from medical standpoint. Chronic medical issues stable. Melo Enriquez MD Subjective Patient evaluated at bedside this morning. He states he had quite a bit of left knee and thigh pain following his procedure. He did state that last evening he had only taken one pain pill instead of two and that he believes the pain caught up to him. He states his pain was a little better this morning, but he had just finished therapy and that he had received his pain medications earlier in the morning and it wasn't time for the next dose prior to therapy. Tolerating diet without difficulty. Passing gas but states he has not had a bowel movement since Hal[place]. He denies any fevers, chills, headache, chest pain, palpitations, shortness of breath, cough/sputum production, abdominal pain, n/v/d, dysuria or hematuria. 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 BROOKS-DX'D 2016 Surgical History History of arthroscopy R/L KNEE History of bowel resection FOR PERFORATED DIVERTICULITIS History of herniorrhaphy Family History Mother Family history of diabetes mellitus Social History Preferred Language: Lithuanian Communication Ability: Effective Telecommunication Engineer Required: No Beliefs That Will Affect Care: None marital status: Current Living Situation: Spouse Other Information That Helps Us Care for You: No Feels Safe at Home: Yes Safety Concerns: Feels Safe At This Time Smoking Status: Light tobacco smoker Tobacco Type: pipe ; Cigarettes Per Day: PIPE 1 X A DAY X MANY YRS ; Do You Dip or Chew Tobacco: Yes (1 POUCH PER WEEK) ; Smoking End Date: QUIT CIGARETTES 20 YRS AGO ; Second Hand Exposure: Yes (SPOUSE SMOKES) ; Hx Alcohol Use: Yes Alcohol type: beer, wine and hard liquor Hx Substance Use: No Physical Exam Constitutional: WD/WN, vitals as above + overweight Eyes: PERRL, conjunctivae normal, anicteric sclerae Neck: trachea midline, no thyromegaly Respiratory: normal respiratory effort, lungs clear to auscultation Cardiovascular: RRR, no murmur, no edema Gastrointestinal (Abdomen): normal bowel sounds, soft, nontender, no hepatosplenomegaly Musculoskeletal: Dressings are clean, dry, and intact. Calves are soft and nontender. Neurovascular is intact- toes are mobile. Hemovac drainage was 150 cc Skin: no rashes, warm and dry Neurologic: PERRL, EOMI, accommodation nl, no face palsy, no dysarthria Psychiatric: A+Ox3, euthymic affect Results & Data Vital Signs (Past 12 Hours) Vital Signs Temp Pulse Resp BP Pulse Ox 08/01/19 12:00 36.8 C 67 16 155/94 H 94 08/01/19 07:32 37.1 C 68 16 157/85 H 94 08/01/19 03:26 36.8 C 62 16 123/83 94 Laboratory Results 08/01/19 08/01/19 08/01/19 Range/Units 12:13 08:17 04:45 WBC (4.8-10.8) K/uL RBC (4.7-6.1) M/uL Hgb (14.0-18.0) g/dL Hct (42-52) % MCV (80-100) fL MCH (25-34) pg MCHC (32-36) g/dL RDW Std Deviation (36.4-46.3) fL RDW Coeff of Mariya (11.5-14.5) % Plt Count (130-400) K/uL MPV (7.4-10.4) fL Sodium 136 (136-145) mmol/L Potassium 3.9 (3.5-5.1) mmol/L Chloride 106 (98-107) mmol/L Carbon Dioxide 24 (21-32) mmol/L Anion Gap 6.0 (3-11) BUN 24 H (7-18) mg/dl Creatinine 1.04 (0.6-1.4) mg/dl Est Cr Clr Drug Dosing 87.6 ml/min Est GFR ( Amer) 85.7 Est GFR (Non-Af Amer) 73.9 BUN/Creatinine Ratio 22.6 H (10-20) Glucose 112 H (70-99) mg/dl POC Glucose 105 H 127 H (70-99) Calcium 7.9 L (8.5-10.1) mg/dl Triglycerides 128 (0-150) mg/dl Cholesterol 78 (0-200) mg/dl LDL Cholesterol, Calc 33 mg/dl VLDL Cholesterol, Calc 26 mg/dl HDL Cholesterol 19 mg/dl Cholesterol/HDL Ratio 4 TSH 4.100 (0.300-4.500) uIu/ml 08/01/19 07/31/19 07/31/19 Range/Units 04:45 20:57 17:29 WBC 14.22 H (4.8-10.8) K/uL RBC 4.09 L (4.7-6.1) M/uL Hgb 12.3 L (14.0-18.0) g/dL Hct 36.8 L (42-52) % MCV 90.0 (80-100) fL MCH 30.1 (25-34) pg MCHC 33.4 (32-36) g/dL RDW Std Deviation 46.0 (36.4-46.3) fL RDW Coeff of Mariya 13.9 (11.5-14.5) % Plt Count 148 (130-400) K/uL MPV 10.1 (7.4-10.4) fL Sodium (136-145) mmol/L Potassium (3.5-5.1) mmol/L Chloride (98-107) mmol/L Carbon Dioxide (21-32) mmol/L Anion Gap (3-11) BUN (7-18) mg/dl Creatinine (0.6-1.4) mg/dl Est Cr Clr Drug Dosing ml/min Est GFR ( Amer) Est GFR (Non-Af Amer) BUN/Creatinine Ratio (10-20) Glucose (70-99) mg/dl POC Glucose 121 H 112 H (70-99) Calcium (8.5-10.1) mg/dl Triglycerides (0-150) mg/dl Cholesterol (0-200) mg/dl LDL Cholesterol, Calc mg/dl VLDL Cholesterol, Calc mg/dl HDL Cholesterol mg/dl Cholesterol/HDL Ratio TSH (0.300-4.500) uIu/ml PG Care Time/CCT Total # of Minutes Spent Total Time Spent with Patient: Total time spent is greater than 50% in coordination of care (as documented) at patient's floor/unit and/or counseling patient:
[2019-08-01] MEDS: HYDROmorphone INJ 0.5 MG/0.5 ML SYR IV PRN ×2 (12:37→23:26)
--- NOTE | 2019-08-01 15:28 | Pharmacy Report ---
Pharmacy Glycemic Short Note 2 - Date of Service August 01, 2019 - Glycemic Short BSG Results (Last 24 hours): 07/31/19 07/31/19 08/01/19 17:29 20:57 04:45 Glucose 112 H POC Glucose 112 H 121 H 08/01/19 08/01/19 08:17 12:13 Glucose POC Glucose 127 H 105 H OUTPATIENT ANTIDIABETIC REGIMEN: * Metformin 500 mg BID ASSESSMENT: * 68 y/o M POD #1 L TKA. * Patient was ordered basal Lantus on a scale at HS yesterday and he did not require any Lantus based on his BSG. * Fasting BSG was well controlled this AM. Lantus has been discontinued. * Lunch BSG was lower, therefore Novolog correction factor and carb ratio were loosened starting with dinner today. * Patient should be able to resume his home Metformin dose tomorrow. PLAN FOR INPATIENT GLYCEMIC CONTROL: * Hold outpatient oral diabetes medications * Basal insulin: none * Bolus insulin: loosened CF and CR * NovoLog per scale ACHS or Q6hrs while NPO * Goal Range: Low 110 mg/dL - High 140 mg/dL * Correction Factor: 30 mg/dL/unit * Nutritional / Prandial insulin per carb ratio of 1 unit per 12 grams CHO consumed PLAN FOR DISCHARGE: * HbA1c = 6.8% * Goal A1c < 7%. Patient is at goal with his current anti-diabetic regimen of Metformin. Would resume his home Metformin dose upon discharge and recommend follow up with outpatient provider if more stringent A1c goal is required.
[2019-08-01] MEDS: SENNA 8.6 MG TAB PO SCH (20:42)
[2019-08-01] MEDS: ATORVASTATIN 10 MG TAB PO SCH (20:43)
[2019-08-02] MEDS: OXYCODONE HCL IR 5 MG TAB (IMMEDIATE RELEASE) PO PRN ×3 (01:09→09:35)
[2019-08-02 05:27] LABS: Hematocrit (blood only) 36.3 % (42-52); Hemoglobin 12.7 g/dL (14.0-18.0); Mean Corpuscular Hemoglobin 30.3 pg (25-34); Mean Corpuscular Volume 86.6 fL (80-100); Mean Platelet Volume 9.7 fL (7.4-10.4); Platelet Count 157 K/uL (130-400); RDW Coefficient of Variation 13.6 % (11.5-14.5); RDW Standard Deviation 43.2 fL (36.4-46.3); Red Blood Count 4.19 M/uL (4.7-6.1); White Blood Count 16.48 K/uL (4.8-10.8)
[2019-08-02] MEDS: ACETAMINOPHEN 500 MG TAB PO SCH (05:28)
[2019-08-02] MEDS: LEVOTHYROXINE SODIUM 75 MCG TABLET PO SCH (05:29)
[2019-08-02 07:15] VITALS: BP 153/91; PULSE 70; TEMP 97.9; O2SAT 94
--- NOTE | 2019-08-02 08:31 | Orthopedic Progress Note ---
Date of Service August 02, 2019 Assessment & Plan (1) Osteoarthritis of left knee: Postop day 2 status post left total knee arthroplasty PT and OT protocols. Weightbearing as tolerated. Continue DVT prophylaxis and pain management as written Discharge planning-patient is planning for outpatient PT upon discharge. Plan for discharge to home today after PT Subjective Patient sitting up awake and alert. No complaints this morning. Pain is controlled. Denies shortness of breath, chest pain, lightheadedness. He is planning for discharge today. Physical Exam Physical Exam: Silverlon dressing with scant drainage in the drainage window. Calves are soft nontender. Neurovascular is intact. Toes are mobile. Results & Data Vital Signs (Past 12 Hours) Vital Signs Temp Pulse Resp BP Pulse Ox 08/02/19 07:14 36.6 C 70 17 153/91 H 94 08/01/19 23:03 37.4 C 66 15 159/92 H 93 Laboratory Results Laboratory Results WBC 16.48 K/uL (4.8-10.8) H 08/02/19 04:47 RBC 4.19 M/uL (4.7-6.1) L 08/02/19 04:47 Hgb 12.7 g/dL (14.0-18.0) L 08/02/19 04:47 Hct 36.3 % (42-52) L 08/02/19 04:47 MCV 86.6 fL (80-100) 08/02/19 04:47 MCH 30.3 pg (25-34) 08/02/19 04:47 MCHC 35.0 g/dL (32-36) 08/02/19 04:47 RDW Std Deviation 43.2 fL (36.4-46.3) 08/02/19 04:47 RDW Coeff of Mariya 13.6 % (11.5-14.5) 08/02/19 04:47 Plt Count 157 K/uL (130-400) 08/02/19 04:47 MPV 9.7 fL (7.4-10.4) 08/02/19 04:47 Immature Gran % (Auto) 0.2 % 07/05/19 10:44 Neut % (Auto) 29.4 % 07/05/19 10:44 Lymph % (Auto) 66.2 % 07/05/19 10:44 [place] % (Auto) 3.2 % 07/05/19 10:44 Eos % (Auto) 0.6 % 07/05/19 10:44 Baso % (Auto) 0.4 % 07/05/19 10:44 Immature Gran # (Auto) 0.04 K/uL (0.00-0.02) H 07/05/19 10:44 Neut # (Auto) 5.02 K/uL (1.4-6.5) 07/05/19 10:44 Lymph # (Auto) 11.33 K/uL (1.2-3.4) H 07/05/19 10:44 [place] # (Auto) 0.55 K/uL (0.11-0.59) 07/05/19 10:44 Eos # (Auto) 0.10 K/uL (0-0.5) 07/05/19 10:44 Baso # (Auto) 0.07 K/uL (0-0.2) 07/05/19 10:44 Smudge Cells Present 07/05/19 10:44 PT 10.5 Seconds (9.0-12.0) 07/05/19 10:44 INR 1.0 (0.9-1.1) 07/05/19 10:44 APTT 27.4 Seconds (21.0-31.0) 07/05/19 10:44 PTT Ratio 1.0 07/05/19 10:44 Sodium 136 mmol/L (136-145) 08/01/19 04:45 Potassium 3.9 mmol/L (3.5-5.1) 08/01/19 04:45 Chloride 106 mmol/L (98-107) 08/01/19 04:45 Carbon Dioxide 24 mmol/L (21-32) 08/01/19 04:45 Anion Gap 6.0 (3-11) 08/01/19 04:45 BUN 24 mg/dl (7-18) H 08/01/19 04:45 Creatinine 1.04 mg/dl (0.6-1.4) 08/01/19 04:45 Est Cr Clr Drug Dosing 87.6 ml/min 08/01/19 04:45 Est GFR ( Amer) 85.7 08/01/19 04:45 Est GFR (Non-Af Amer) 73.9 08/01/19 04:45 BUN/Creatinine Ratio 22.6 (10-20) H 08/01/19 04:45 Glucose 112 mg/dl (70-99) H 08/01/19 04:45 POC Glucose 137 (70-99) H 08/01/19 20:40 Estimat Average Glucose 148 mg/dl 07/05/19 10:44 Hemoglobin A1c 6.8 % (4.5-5.6) H 07/05/19 10:44 Calcium 7.9 mg/dl (8.5-10.1) L 08/01/19 04:45 Albumin 4.0 gm/dl (3.4-5.0) 07/05/19 10:44 Triglycerides 128 mg/dl (0-150) 08/01/19 04:45 Cholesterol 78 mg/dl (0-200) 08/01/19 04:45 LDL Cholesterol, Calc 33 mg/dl 08/01/19 04:45 VLDL Cholesterol, Calc 26 mg/dl 08/01/19 04:45 HDL Cholesterol 19 mg/dl 08/01/19 04:45 Cholesterol/HDL Ratio 4 08/01/19 04:45 TSH 4.100 uIu/ml (0.300-4.500) 08/01/19 04:45 Blood Type AB Negative 07/05/19 10:44 Antibody Screen NEGATIVE 07/05/19 10:44
[2019-08-02] MEDS: FERROUS GLUCONATE 324 MG TAB PO SCH (08:43)
[2019-08-02] MEDS: hydroCHLOROthiazide 25 MG TAB PO SCH (08:43)
[2019-08-02] MEDS: DOCUSATE SODIUM 100 MG CAP PO SCH (08:43)
[2019-08-02] MEDS: MULTIVITAMIN TAB PO SCH (08:43)
[2019-08-02] MEDS: ASPIRIN 81 MG ECTAB PO SCH (08:43)
[2019-08-02] MEDS: INSULIN ASPART 100 UNITS/ML 3 ML PEN SC SCH ×2 (08:46→12:34)
[2019-08-02] MEDS ORDERED: METFORMIN HCL 500 MG TAB PO SCH (10:00)
--- NOTE | 2019-08-02 10:16 | Hospitalist Progress Note ---
Date of Service August 02, 2019 Assessment & Plan (1) Osteoarthritis of left knee: * POD #2 s/p left TKA with Dr. Hubbard * Pain management and DVT proph per ortho * PT/OT per primary team * H/H improved from 12.3/36.9 to 12.7/36.3 - continue iron sup per ortho * Plans for discharge this afternoon after PT with OPPT (2) Hypertension: * Elevated at 153/91 this morning- HCTZ restarted yesterday morning * Will continue to monitor (3) Hypothyroidism: * Patient initially on levothyroxine 50mcg and then 75mcg for past five years * TSH 4.1 today * Discussed recheck as outpatient and possible increase to 88mcg pending results- per patient, he would like to refrain from increasing anything currently (4) Diabetes mellitus: * Last hemoglobin A1c 6.8 on 07/05 * Hold metformin while inpatient * SSI * Pharmacy for glycemic control (5) Hyperlipidemia: * Lipid panel today- triglycerides 128, cholesterol 78, HDL 19, LDL 33 * Continue atorvastatin 10mg (6) CLL (chronic lymphocytic leukemia): * Diagnosed October 2017 -- found on routine health maintenance screening * Of note, patient of [place] with direct exposure to agent orange * Follows with Dr. 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 I agree w/ the burch components of her documentation. Labs/vitals continue to remain acceptable. Doing well from medical standpoint. Ok for d/c home from medical perspective. Consider oral Fe supplementation for 1-2 months post-discharge in light of mild post-op acute blood loss anemia. Melo Enriquez MD Subjective Patient seen at bedside this morning. He states he has pain of his left leg, but has been taking pain medications. He is anticipating discharge this afternoon with outpatient physical therapy via transport with his . He states he has not had a bowel movement yet, but has been passing gas. He states he feels like he does have to go and has been taking a bowel regime per ortho team. He denies any chest pain, shortness of breath, fever, chills, abdominal pain, n/v/d, dysuria. Review of Systems Constitutional: no fever and no chills Eyes: no diplopia and no eye pain Ear, Nose, Mouth, Throat: no sore throat and no dysphagia Respiratory: no cough and no dyspnea Cardiovascular: no chest pain and no edema Gastrointestinal: + constipation; no abdominal pain, no nausea and no vomiting Genitourinary: no dysuria and no urinary frequency Musculoskeletal: left leg/thigh pain Neurologic: no numbness and no paresthesia Physical Exam Constitutional: WD/WN, vitals as above + overweight Eyes: PERRL, conjunctivae normal, anicteric sclerae Neck: trachea midline, no thyromegaly Respiratory: normal respiratory effort, lungs clear to auscultation Cardiovascular: RRR, no murmur, no edema Gastrointestinal (Abdomen): normal bowel sounds, soft, nontender, no hepatosplenomegaly Skin: no rashes, warm and dry Neurologic: PERRL, EOMI, accommodation nl, no face palsy, no dysarthria Psychiatric: A+Ox3, euthymic affect Results & Data Vital Signs (Past 12 Hours) Vital Signs Temp Pulse Resp BP Pulse Ox 08/02/19 07:14 36.6 C 70 17 153/91 H 94 08/01/19 23:03 37.4 C 66 15 159/92 H 93 PG Care Time/CCT Total # of Minutes Spent Total Time Spent with Patient: Total time spent is greater than 50% in coordination of care (as documented) at patient's floor/unit and/or counseling patient:
--- NOTE | 2019-08-07 22:17 | Discharge Summary ---
DISCHARGE DIAGNOSIS: Degenerative joint disease, left knee. SECONDARY DIAGNOSES: Hypertension, hypothyroidism, chronic lymphocytic leukemia, sciatica, history of renal calculi, history of hepatitis. CONSULTS: Dr. Lucretia White. COMPLICATIONS: None. PROCEDURES: Left total knee arthroplasty performed by Dr. Hubbard on 07/31/2019. BRIEF HISTORY: As dictated in the history and physical. HOSPITAL SUMMARY: The patient was admitted on the above-noted date and had the above-noted surgery performed, which he tolerated well. On the first postoperative day, the patient was sleeping upon entering the room, easily awoken, states he had a restless night, was unable to sleep much, complaining of thigh pain where the tourniquet was. He states his knee is comfortable at that point in time and denied any shortness of breath, chest pain or lightheadedness. Dressings were clean, dry and intact. Calves were soft, nontender, neurovascularly intact. Toes were mobile. Hemovac drainage was 150 mL from the previous shift. Vital signs were stable. He was afebrile and hemoglobin was 12.3. He was started on PT and OT protocols, continued on DVT prophylaxis and pain management and continued on medical management per [facility]. By his second postoperative day, he was sitting up, awake, and alert, no complaints that morning. Pain was controlled. Denied shortness of breath, chest pain or lightheadedness and he was planning for discharge. Silverlon dressing had scant drainage in the window. Calves were soft, nontender, neurovascularly intact. Toes were mobile. Vital signs were stable and he was afebrile. Repeat hemoglobin was 12.7. He was continued on his PT and OT protocols which he was progressing well and continued on DVT prophylaxis and pain management and was remaining medically stable and it was felt he could be discharged to home on 08/02/2019. DISCHARGE INSTRUCTIONS: The patient was discharged to home in satisfactory condition on 08/02/2019. Diet: Diabetic. Activity: Weightbearing as tolerated in the left lower extremity. Follow TK instruction sheets and special care instructions as noted. Follow up with Dr. Hubbard in 2 weeks. The patient is to call for appointment if one has not made for you. DISCHARGE MEDICATIONS: Acetaminophen 1000 mg p.o. q. 8 hours, aspirin 81 mg p.o. b.i.d., oxycodone 5 mg p.o. q. 4 hours p.r.n., sennosides 17.2 mg p.o. at bedtime. Resume home meds as listed and stop taking previous aspirin dosage.
== END 2019-08-02 13:13 | disposition home or self-care (01) | DRG 470 ==
LOC: ASU 06:13 → 3E 11:14

== ENCOUNTER 2022-02-22 03:27 | Observation (INO) ==
[2022-02-22] MEDS ORDERED: ONDANSETRON INJ 2 MG/ML 2 ML VIAL IV STA (03:41)
[2022-02-22] MEDS ORDERED: SODIUM CHLORIDE 0.9% 1000ML 1,000 ML IV SCH (03:45)
--- NOTE | 2022-02-22 03:45 | Emergency Department Note ---
Impression & Plan Atrial fibrillation, Intractable nausea and vomiting Admit ED Provider Note HPI: The patient is a 71-year-old gentleman with history of CLL, hypertension, diabetes, hyperlipidemia, presents emergency department today with multiple complaints. Patient states that he he has had dizziness as well as nausea and vomiting that began about 4-5 hours prior to arrival. States he was recently placed on amoxicillin for dental infection he believes his symptoms have coincided with the amoxicillin. He states that he is actually had some dizziness for the last several days although it acutely worsened over the past 4 to 5 hours. Patient has had no chest pain or shortness of breath, on arrival to the ED he is alert and oriented, he is somewhat listless appearing on arrival but he is hemodynamically stable and saturating well on room air, denies any recent fevers, he is afebrile on arrival. ROS: -General: Generalized weakness -Neuro: Dizziness -Eye: Nausea and vomiting *10 point review systems was conducted and is otherwise negative unless stated above *Outpatient medications and allergy history reviewed PE: General: Alert, NAD HEENT: Normocephalic, atraumatic Eyes: Extraocular eye movement is intact, no scleral erythema Pulmonary: Clear to auscultation bilaterally, no wheezing Cardio: Regular rate and rhythm GI: Abdomen is soft, nontender : No suprapubic tenderness MSK: No evidence of trauma or malformation of the extremities, no edema Skin: No evidence of rash Neuro: Alert, no focal deficits, no ataxia on [id number] testing bilaterally Psychiatric: Cooperative engine monitor: - An order was placed for continuous cardiac monitoring - Patient was noted to be in an irregular rhythm with rate of 95 CT ABDOMEN & PELVIS With Contrast: No acute findings on CT abdomen/pelvis. Normal appendix. No obstructive renal calculi bilaterally without evidence of collecting system dilatation. Findings suspicious for sigmoidectomy changes. No evidence of bowel obstruction. Midline hernia mesh. CT HEAD: No acute intracranial abnormality. Chronic right cerebellar infarction. Senescent changes. If there is further concern, consider MRI. Right middle cranial fossa arachnoid cyst. EKG: Rate: 69 Rhythm: Atrial fibrillation Intervals: Within normal limits ST changes: No ST elevation Time: 0339 Medical Decision Making: Patient presented to the emergency department with symptoms of dizziness, nausea and vomiting, states is been worsening over the past 4 to 5 hours. On arrival to the ED the patient is hemodynamically stable, no focal deficits are noted, he is actively having nausea. He is otherwise hemodynamically stable and saturating well on room air on arrival. IV was established, lab work obtained, patient was placed on compliance monitor, lab work shows evidence of a chronic leukocytosis likely associated with the patient's CLL, otherwise no critical electrolyte abnormalities are noted, high- sensitivity troponin is within normal limits. EKG shows atrial fibrillation, this does appear to be a new finding, patient denies any history of A. fib. CT imaging of the abdomen pelvis shows evidence of enlarged lymph nodes but no evidence of any acute surgical abnormality. This is also likely consistent with the patient's history of CLL. CT scan of the head shows evidence of chronic right cerebellar infarction. Patient denies any history of cerebellar stroke. MRI imaging of the brain was obtained given the patient's intractable symptoms, this also shows evidence of what appears to be a chronic right cerebellar infarction without evidence of acute stroke. Given the patient's intractable symptoms and new onset atrial fibrillation with concern for strokelike symptoms of posterior circulation stroke with this finding of a chronic right cerebellar infarction, I did discuss the case with the on-call hospitalist for [facility], Dr. DelA ngel, and the patient will be admitted to a telemetry bed for further management. He was given Zofran as well as Reglan and Benadryl here in the ED and a dose of meclizine for his nausea and vomiting. He was given aspirin in regards to the concern for strokelike symptoms. He does not have any ataxia on exam, no other focal deficits are noted. Patient and his at the bedside are in agreement for admission and the patient was admitted in stable condition. Diagnosis: 1. New onset atrial fibrillation 2. Intractable nausea and vomiting 3. Vertiginous sensation 4. Chronic cerebellar stroke on CT imaging Disposition: ADMIT Chad Alvarez DO Emergency Medicine Past Med/Surg History Medical History (Updated 02/22/22 @ 07:24 by Chad Alvarez DO) Arthritis Diabetes mellitus, type 2 Hepatitis per patient in 1969's had hepatitis - "worked in [email or web address]"- took medication Hyperlipidemia Hypertension Hypothyroidism 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 BROOKS-DX'D 2016 Surgical History History of arthroscopy R/L KNEE History of bowel resection FOR PERFORATED DIVERTICULITIS History of herniorrhaphy Family History Mother Family history of diabetes mellitus Other Colorectal cancer Denies family history of Ovarian cancer Prostate cancer Myocardial infarction Breast cancer Social History Smoking Status: Unknown if ever smoked Cigarettes Per Day: PIPE 1 X A DAY X MANY YRS; Second Hand Exposure: Yes (SPOUSE SMOKES); Hx Alcohol Use: Yes Alcohol type: beer, wine and hard liquor Alcohol Intake Frequency: 2-4 x/Month Hx Substance Use: No Preferred Language: Nepalese Communication Ability: Effective Visual Impairment: No Limitations Hearing Ability: Use of Hearing Aid Metal Hanging Supervisor Required: No Beliefs That Will Affect Care: None marital status: Current Living Situation: Spouse current occupational status: employed and retired 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[employer], 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, was in [employer], works at [employer] now Feels Safe at Home: Yes Childhood Exposure to Second-Hand Smoke: Yes Dental Care, Regularly: Yes Physical Activity Frequency: Daily Seatbelt Use: always Sunscreen Use: Yes Assistive Devices: Walker Allergies Allergies Allergy/AdvReac Type Severity Reaction Status Date / Time scallops Allergy Intermediate severe Verified 02/18/21 09:56 nausea / vomiting No Known Drug Allergies AdvReac Verified 02/18/21 09:56 Home Meds Home Medications Medication Instructions Recorded Confirmed atorvastatin 10 mg tablet 10 mg PO HS 06/28/19 02/18/21 hydrochlorothiazide 25 mg tablet 25 mg PO QAM 06/28/19 02/18/21 metformin 500 mg tablet 500 mg PO BID 06/28/19 02/18/21 levothyroxine 75 mcg tablet 75 mcg PO DAILY 07/19/19 02/18/21 aspirin 81 mg tablet,delayed 81 mg PO DAILY 02/18/21 02/18/21 release Previous Rx's Medication Instructions Recorded gabapentin 100 mg capsule See Rx Instructions PO TID PRN #90 02/09/21 cap valacyclovir 1 gram tablet 1,000 mg PO TID #21 tab 02/09/21 Results & Data (ED) Vital Signs Vital Signs - 24 hr 02/22/22 03:33 02/22/22 03:57 02/22/22 04:36 Temperature 36.5 C Temperature Source Oral Pulse Rate 75 78 Pulse Rate [Finger] 72 Pulse Rhythm Regular Pulse Rhythm [Finger] Regular Pulse Strength [Finger] Normal Respiratory Rate 18 18 16 Respiratory Effort / Characteristics Non-Labored Non-Labored Respiratory Depth Normal Normal Respiratory Pattern Regular Blood Pressure 146/79 H Blood Pressure [Right Arm] 150/91 H Blood Pressure Mean 101 Blood Pressure Mean [Right Arm] 110 Blood Pressure Position [Right Arm] Sitting Pulse Oximetry 96 94 94 Oxygen Delivery Method Room Air Room Air Room Air Sepsis Recent Fever Within 48 Hours No Sepsis New/Unexplained Change in Mental Status No Sepsis Action Taken by Nursing No Action Required 02/22/22 06:00 02/22/22 06:45 Temperature 36.4 C L Temperature Source Oral Pulse Rate Pulse Rate [Finger] 66 71 Pulse Rhythm Pulse Rhythm [Finger] Regular Regular Pulse Strength [Finger] Normal Normal Respiratory Rate 20 16 Respiratory Effort / Characteristics Spontaneous Respiratory Depth Normal Respiratory Pattern Blood Pressure Blood Pressure [Right Arm] 154/97 H 156/98 H Blood Pressure Mean Blood Pressure Mean [Right Arm] 116 117 Blood Pressure Position [Right Arm] Sitting Lying Pulse Oximetry 97 97 Oxygen Delivery Method Room Air Room Air Sepsis Recent Fever Within 48 Hours Sepsis New/Unexplained Change in Mental Status Sepsis Action Taken by Nursing Laboratory Data Result diagrams: 02/22/22 03:55 02/22/22 03:55 Lab Results 02/22/22 02/22/22 02/22/22 Range/Units 03:55 03:55 03:55 WBC 18.63 H (4.8-10.8) K/uL RBC 5.16 (4.7-6.1) M/uL Hgb 15.1 (14.0-18.0) g/dL Hct 43.8 (42-52) % MCV 84.9 (80-100) fL MCH 29.3 (25-34) pg MCHC 34.5 (32-36) g/dL RDW Std Deviation 41.1 (36.4-46.3) fL RDW Coeff of Mariya 13.3 (11.5-14.5) % Plt Count 176 (130-400) K/uL MPV 10.0 (7.4-10.4) fL Immature Gran % (Auto) 0.3 % Neut % (Auto) 40.0 % Lymph % (Auto) 56.5 % Reeves % (Auto) 2.3 % Eos % (Auto) 0.6 % Baso % (Auto) 0.3 % Neut # (Auto) 7.45 H (1.4-6.5) K/uL Lymph # (Auto) 10.52 H (1.2-3.4) K/uL Reeves # (Auto) 0.42 (0.11-0.59) K/uL Eos # (Auto) 0.12 (0-0.5) K/uL Baso # (Auto) 0.06 (0-0.2) K/uL Immature Gran # (Auto) 0.06 H (0.00-0.02) K/uL Smudge Cells Present Sodium 132 L (136-145) mmol/L Potassium 4.2 (3.5-5.1) mmol/L Chloride 99 (98-107) mmol/L Carbon Dioxide 21 (21-32) mmol/L Anion Gap 12 H (3-11) BUN 31 H (6-23) mg/dl Creatinine 1.22 (0.6-1.4) mg/dl Est Cr Clr Drug Dosing Not Reportable Est GFR ( Amer) 69.2 ml/min Est GFR (Non-Af Amer) 59.7 ml/min BUN/Creatinine Ratio 25.4 H (10-20) Glucose 197 H (70-99(Fasting)) mg/dl Lactate (0.4-2.0) mmol/L Calcium 9.2 (8.5-10.1) mg/dl Total Bilirubin 1.0 (0.2-1.0) mg/dl AST 15 (13-39) U/L ALT 11 (7-52) U/L Alkaline Phosphatase 62 (34-104) U/L Troponin I High Sens 6.4 (0-20) pg/ml Total Protein 6.9 (6.0-8.3) gm/dl Albumin 4.3 (3.4-5.0) gm/dl Globulin 2.6 (2.5-4.0) gm/dl Albumin/Globulin Ratio 1.7 (0.9-2) Procalcitonin (0-0.5) ng/ml TSH 5.343 H (0.300-4.500) uIu/ml Free T4 0.98 (0.61-1.60) ng/dl Urine Color Urine Appearance (Clear) Urine pH (4.5-7.5) Ur Specific [place] (1.000-1.030) Urine Protein (Negative) Urine Glucose (UA) (Negative) Urine Ketones (Negative) Urine Blood (Negative) Urine Nitrite (Negative) Urine Bilirubin (Negative) Urine Urobilinogen (Negative) Ur Leukocyte Esterase (Negative) Urine WBC (Auto) (0-5) /hpf Urine RBC (Auto) (0-4) /hpf U Hyaline Cast (Auto) (0-5) /lpf U Epithel Cells (Auto) (0-5) /lpf Urine Bacteria (Auto) (Negative) SARS-CoV-2 (PCR) (Negative) Influenza Type A (PCR) (Neg) Influenza Type B (PCR) (Neg) RSV (RT-PCR) (Neg) 02/22/22 02/22/22 02/22/22 Range/Units 03:55 04:15 04:28 WBC (4.8-10.8) K/uL RBC (4.7-6.1) M/uL Hgb (14.0-18.0) g/dL Hct (42-52) % MCV (80-100) fL MCH (25-34) pg MCHC (32-36) g/dL RDW Std Deviation (36.4-46.3) fL RDW Coeff of Amriya (11.5-14.5) % Plt Count (130-400) K/uL MPV (7.4-10.4) fL Immature Gran % (Auto) % Neut % (Auto) % Lymph % (Auto) % Reeves % (Auto) % Eos % (Auto) % Baso % (Auto) % Neut # (Auto) (1.4-6.5) K/uL Lymph # (Auto) (1.2-3.4) K/uL Reeves # (Auto) (0.11-0.59) K/uL Eos # (Auto) (0-0.5) K/uL Baso # (Auto) (0-0.2) K/uL Immature Gran # (Auto) (0.00-0.02) K/uL Smudge Cells Sodium (136-145) mmol/L Potassium (3.5-5.1) mmol/L Chloride (98-107) mmol/L Carbon Dioxide (21-32) mmol/L Anion Gap (3-11) BUN (6-23) mg/dl Creatinine (0.6-1.4) mg/dl Est Cr Clr Drug Dosing Est GFR ( Amer) ml/min Est GFR (Non-Af Amer) ml/min BUN/Creatinine Ratio (10-20) Glucose (70-99(Fasting)) mg/dl Lactate 0.9 (0.4-2.0) mmol/L Calcium (8.5-10.1) mg/dl Total Bilirubin (0.2-1.0) mg/dl AST (13-39) U/L ALT (7-52) U/L Alkaline Phosphatase (34-104) U/L Troponin I High Sens (0-20) pg/ml Total Protein (6.0-8.3) gm/dl Albumin (3.4-5.0) gm/dl Globulin (2.5-4.0) gm/dl Albumin/Globulin Ratio (0.9-2) Procalcitonin < 0.05 (0-0.5) ng/ml TSH (0.300-4.500) uIu/ml Free T4 (0.61-1.60) ng/dl Urine Color Urine Appearance (Clear) Urine pH (4.5-7.5) Ur Specific [place] (1.000-1.030) Urine Protein (Negative) Urine Glucose (UA) (Negative) Urine Ketones (Negative) Urine Blood (Negative) Urine Nitrite (Negative) Urine Bilirubin (Negative) Urine Urobilinogen (Negative) Ur Leukocyte Esterase (Negative) Urine WBC (Auto) (0-5) /hpf Urine RBC (Auto) (0-4) /hpf U Hyaline Cast (Auto) (0-5) /lpf U Epithel Cells (Auto) (0-5) /lpf Urine Bacteria (Auto) (Negative) SARS-CoV-2 (PCR) NEGATIVE (Negative) Influenza Type A (PCR) Negative (Neg) Influenza Type B (PCR) Negative (Neg) RSV (RT-PCR) Negative (Neg) 02/22/22 Range/Units 05:27 WBC (4.8-10.8) K/uL RBC (4.7-6.1) M/uL Hgb (14.0-18.0) g/dL Hct (42-52) % MCV (80-100) fL MCH (25-34) pg MCHC (32-36) g/dL RDW Std Deviation (36.4-46.3) fL RDW Coeff of Mariya (11.5-14.5) % Plt Count (130-400) K/uL MPV (7.4-10.4) fL Immature Gran % (Auto) % Neut % (Auto) % Lymph % (Auto) % Reeves % (Auto) % Eos % (Auto) % Baso % (Auto) % Neut # (Auto) (1.4-6.5) K/uL Lymph # (Auto) (1.2-3.4) K/uL Reeves # (Auto) (0.11-0.59) K/uL Eos # (Auto) (0-0.5) K/uL Baso # (Auto) (0-0.2) K/uL Immature Gran # (Auto) (0.00-0.02) K/uL Smudge Cells Sodium (136-145) mmol/L Potassium (3.5-5.1) mmol/L Chloride (98-107) mmol/L Carbon Dioxide (21-32) mmol/L Anion Gap (3-11) BUN (6-23) mg/dl Creatinine (0.6-1.4) mg/dl Est Cr Clr Drug Dosing Est GFR ( Amer) ml/min Est GFR (Non-Af Amer) ml/min BUN/Creatinine Ratio (10-20) Glucose (70-99(Fasting)) mg/dl Lactate (0.4-2.0) mmol/L Calcium (8.5-10.1) mg/dl Total Bilirubin (0.2-1.0) mg/dl AST (13-39) U/L ALT (7-52) U/L Alkaline Phosphatase (34-104) U/L Troponin I High Sens (0-20) pg/ml Total Protein (6.0-8.3) gm/dl Albumin (3.4-5.0) gm/dl Globulin (2.5-4.0) gm/dl Albumin/Globulin Ratio (0.9-2) Procalcitonin (0-0.5) ng/ml TSH (0.300-4.500) uIu/ml Free T4 (0.61-1.60) ng/dl Urine Color Yellow Urine Appearance Clear (Clear) Urine pH 5.0 (4.5-7.5) Ur Specific [place] > 1.045 H (1.000-1.030) Urine Protein Trace H (Negative) Urine Glucose (UA) Negative (Negative) Urine Ketones Trace H (Negative) Urine Blood Negative (Negative) Urine Nitrite Negative (Negative) Urine Bilirubin Negative (Negative) Urine Urobilinogen Negative (Negative) Ur Leukocyte Esterase Negative (Negative) Urine WBC (Auto) 1-5 (0-5) /hpf Urine RBC (Auto) 0-4 (0-4) /hpf U Hyaline Cast (Auto) 1-5 (0-5) /lpf U Epithel Cells (Auto) 10-20 H (0-5) /lpf Urine Bacteria (Auto) Negative (Negative) SARS-CoV-2 (PCR) (Negative) Influenza Type A (PCR) (Neg) Influenza Type B (PCR) (Neg) RSV (RT-PCR) (Neg) Administered Medications Discontinued Medications Sodium Chloride (Nss 1000ml) 1,000 mls @ 999 mls/hr IV .Q1H1M TANGELA Stop: 02/22/22 04:45 Last Infusion: 02/22/22 05:04 Dose: 0 mls/hr Documented by: [id number] Admin: 02/22/22 03:53 Dose: 999 mls/hr Documented by: [id number] Ioversol (Optiray 320 100ml) 100 ml IV ONCE ONE Stop: 02/22/22 05:01 Last Admin: 02/22/22 05:01 Dose: 93 ml Documented by: [id number] Meclizine HCl (Meclizine Hcl 25 Mg Tab) 25 mg PO NOW STA Stop: 02/22/22 05:03 Last Admin: 02/22/22 05:06 Dose: 25 mg Documented by: [id number] Ondansetron HCl (Ondansetron Inj 2 Mg/Ml 2 Ml Vial) 4 mg IV NOW STA Stop: 02/22/22 03:42 Last Admin: 02/22/22 03:52 Dose: 4 mg Documented by: [id number] Imaging Data Radiologist's Impression: Chest X-Ray 02/22/22 03:41 XR chest 1V portable CLINICAL HISTORY: weakness COMPARISON STUDY: Chest radiographs October 04, 2019. FINDINGS: Lung volumes are normal. Lungs are clear. There is no pneumothorax or pleural effusion. Cardiomegaly is noted. Mediastinal contours are normal. There is no evidence for pulmonary edema. IMPRESSION: No acute cardiopulmonary findings. Cardiomegaly. ACT 112: Negative or not required by law. Electronically signed by: Garrett García M.D. 02/22/2022 7:13 AM Abdomen/Pelvis CT 02/22/22 03:42 CT OF THE ABDOMEN AND PELVIS WITH CONTRAST CLINICAL HISTORY: Nausea and vomiting. History of CLL. COMPARISON STUDY: None. TECHNIQUE: Following IV administration of 93 mL of Optiray, axial images of the abdomen and pelvis were obtained from the lung bases to the proximal femurs. Images were reviewed in the axial, sagittal, and coronal planes. IV contrast was administered without complication. Automated exposure control was utilized for the study. A dose lowering technique was utilized adhering to the principles of ALARA. CT DOSE: 1495.12 mGy.cm FINDINGS: Cardiomegaly is noted. There is a small hiatal hernia. No pneumatosis, free air or portal venous gas is present. A few hepatic cysts measure up to 2.9 cm. There is no biliary or pancreatic ductal dilatation. No peripancreatic or pericholecystic infiltration is present. Mild splenomegaly is noted. A 5.4 cm lesion within the upper pole of the right kidney contains a thin septation with calcification. This represents a cyst. There several additional renal cysts. A f ew subcentimeter renal lesions are too small to characterize. Multiple bilateral renal calculi are present. These include a 6 mm left renal calculus. There is no hydronephrosis. Note is made of a nonobstructing 1.2 x 0.8 cm distal right ureteral calculus. Prostate is enlarged, measuring 5.5 cm in transverse dimension. Sigmoid resection is noted. No evidence for a bowel obstruction. The appendix is normal. Colonic diverticulosis without evidence for acute diverticulitis. There are multiple enlarged abdominal and pelvic lymph nodes. Index peripancreatic node measures 2.2 x 1.9 cm. Index left external iliac node measures 2.9 x 1.8 cm. Index right iliac chain node measures 2.3 x 1.8 cm. Ventral hernia repair with mesh is noted. IMPRESSION: 1. Numerous enlarged abdominal and pelvic lymph nodes, as described above. These are consistent with a history of CLL. Findings discussed with Dr. Alvarez at time of dictation. 2. Nonobstructing 1.2 x 0.8 cm distal right ureteral calculus. Bilateral nephrolithiasis. Enlarged prostate. 3. Colonic diverticulosis. No evidence for acute diverticulitis. 4. Status post sigmoid resection. No bowel obstruction. Normal appendix. ACT 112: Negative or not required by law. Electronically signed by: Garrett García M.D. 02/22/2022 6:[address] 02/22/22 03:42 CT OF THE HEAD WITHOUT CONTRAST CLINICAL HISTORY: Dizzy. COMPARISON STUDY: Head CT November 05, 2018. CT DOSE: 691.05 mGy.cm TECHNIQUE: Helical axial images of the head were obtained without IV contrast. Automated exposure control was utilized for the study. A dose lowering technique was utilized adhering to the principles of ALARA. FINDINGS: No acute intracranial hemorrhage, midline shift or mass effect is present. The ventricular system is unremarkable. The basal cisterns are patent. Note is made of a 3.1 x 2 cm right middle cranial fossa arachnoid cyst. There is an old infarct within the lateral aspect of the right cerebellar hemisphere. There are no significant calvarial abnormalities. Trace fluid within the right mastoid air cells is present. There is minimal sinus mucosal thickening. IMPRESSION: 1. No acute intracranial findings. 2. Old infarct within the right cerebellar hemisphere. 3. 3.1 x 2 cm right middle cranial fossa arachnoid cyst. ACT 112: Negative or not required by law. Electronically signed by: Garrett García M.D. 02/22/2022 7:15 AM Brain MRI 02/22/22 05:14 MRI OF THE BRAIN WITHOUT CONTRAST CLINICAL HISTORY: Dizzy eval for stroke COMPARISON STUDY: Head CT performed earlier today. TECHNIQUE: Utilizing a 1.5 Jes magnet and dedicated coil, multiplanar, multiecho imaging of the brain was performed without IV contrast. FINDINGS: There are no foci of restricted diffusion to suggest acute infarct. There is a linear hyperintense focus within the posterior right temporal lobe on axial image 11 of 26 of the diffusion-weighted sequence. This does not appear to represent an acute infarct and likely represent a vessel on the T2-weighted sequence. Ventricular system is unremarkable. Basal cisterns are patent. There are no extraaxial collections. 3.2 x 2 cm CSF signal intensity lesion within the right middle cranial fossa represents an arachnoid cyst. An old infarct within the lateral aspect of the right cerebral hemisphere measures 2.3 x 2.1 cm. There is a possible old lacunar infarct within the left cerebellar hemisphere. Flow- voids for the major intracranial vessels are present. Trace fluid within the ri ght mastoid air cells is present. There is heterogeneous marrow signal within visualized skeletal structures on the sagittal T1-weighted sequence. IMPRESSION: 1. No acute intracranial findings. No evidence for acute infarction. 2. 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 3. Right middle cranial fossa arachnoid cyst. ACT 112: Negative or not required by law. Electronically signed by: Garrett García M.D. 02/22/2022 7:05 AM Discharge Plan Visit Data Chief Complaint: Illness Stated Complaint: Illness, Nausea, Vomiting ED Provider: Chad Alvarez Discharge Problem: Atrial fibrillation, Intractable nausea and vomiting Forms Stand Alone Forms: [facility] [employer] Prescriptions Prescriptions: No Action levothyroxine 75 mcg tablet 75 mcg PO DAILY RF: 0 gabapentin 100 mg capsule See Rx Instructions PO TID PRN (Reason: shingles pain) Qty: 90 RF: 2 valacyclovir 1 gram tablet 1,000 mg PO TID Qty: 21 RF: 0 aspirin 81 mg tablet,delayed release (DR/EC) 81 mg PO DAILY RF: 0 metformin 500 mg Tablet 500 mg PO BID RF: 0 atorvastatin 10 mg Tablet 10 mg PO HS RF: 0 hydrochlorothiazide 25 mg Tablet 25 mg PO QAM RF: 0 Referrals Referrals: Damaso Venegas MD [Primary Care Provider] - Discharge Problem: Atrial fibrillation Qualifiers: Atrial fibrillation type: unspecified Qualified Code(s): I48.91 - Unspecified atrial fibrillation
[2022-02-22 04:12] LABS: Hematocrit (blood only) 43.8 % (42-52); Hemoglobin 15.1 g/dL (14.0-18.0); Mean Corpuscular Hemoglobin 29.3 pg (25-34); Mean Corpuscular Hgb Conc 34.5 g/dL (32-36); Mean Corpuscular Volume 84.9 fL (80-100); Platelet Count 176 K/uL (130-400); RDW Coefficient of Variation 13.3 % (11.5-14.5); RDW Standard Deviation 41.1 fL (36.4-46.3); Red Blood Count 5.16 M/uL (4.7-6.1); White Blood Count 18.63 K/uL (4.8-10.8)
[2022-02-22 04:31] LABS: Alanine Aminotransferase 11 U/L (7-52); Albumin Globulin Ratio 1.7 (0.9-2); Albumin Level 4.3 gm/dl (3.4-5.0); Alkaline Phosphatase 62 U/L (34-104); Anion Gap 12 (3-11); Aspartate Aminotransferase 15 U/L (13-39); BUN Creatinine Ratio 25.4 (10-20); Blood Urea Nitrogen 31 mg/dl (6-23); Calcium 9.2 mg/dl (8.5-10.1); Carbon Dioxide 21 mmol/L (21-32); Chloride 99 mmol/L (98-107); Est GFR (African American) 69.2 ml/min; Est GFR (Non-African American) 59.7 ml/min; Globulin 2.6 gm/dl (2.5-4.0); Glucose 197 mg/dl (70-99(Fasting)); Potassium 4.2 mmol/L (3.5-5.1); Sodium 132 mmol/L (136-145); Total Protein 6.9 gm/dl (6.0-8.3)
[2022-02-22 04:33] LABS: Troponin I High Sensitivity 6.4 pg/ml (0-20)
[2022-02-22 04:42] LABS: Thyroid Stimulating Hormone 5.343 uIu/ml (0.300-4.500)
[2022-02-22 04:50] LABS: Basophils # (auto) 0.06 K/uL (0-0.2); Basophils % (auto) 0.3 %; Eosinophils # (auto) 0.12 K/uL (0-0.5); Eosinophils % (auto) 0.6 %; Immature Granulocytes # (auto) 0.06 K/uL (0.00-0.02); Immature Granulocytes % (auto) 0.3 %; Lymphocytes # (auto) 10.52 K/uL (1.2-3.4); Lymphocytes % (auto) 56.5 %; Monocytes # (auto) 0.42 K/uL (0.11-0.59); Monocytes % (auto) 2.3 %; Neutrophils # (auto) 7.45 K/uL (1.4-6.5); Smudge Cells Present
[2022-02-22] MEDS ORDERED: OPTIRAY 320 100ml IV ONE (05:00)
[2022-02-22] MEDS ORDERED: MECLIZINE HCL 25 MG TAB PO STA (05:02)
[2022-02-22 05:07] LABS: Influenza A virus by PCR Negative (Neg); Influenza B virus by PCR Negative (Neg); RSV by PCR Negative (Neg); SARS CoV2 RNA(COVID-19) InHosp NEGATIVE (Negative)
[2022-02-22 05:15] LABS: T4 Free Thyroxine 0.98 ng/dl (0.61-1.60)
[2022-02-22 06:10] LABS: Appearance Urine Clear (Clear); Bacteria Urine Automated Negative (Negative); Bilirubin Urine Negative (Negative); Blood Urine Negative (Negative); Color Urine Yellow; Glucose Urine UA Negative (Negative); Ketones Urine Trace (Negative); Leukocyte Esterase Urine Negative (Negative); Nitrite Urine Negative (Negative); Protein Urine Trace (Negative); RBC Urine Automated 0-4 /hpf (0-4); Specific Gravity Urine > 1.045 (1.000-1.030); Urobilinogen Urine Negative (Negative)
--- NOTE | 2022-02-22 06:59 | CT Scan Report ---
CT OF THE ABDOMEN AND PELVIS WITH CONTRAST CLINICAL HISTORY: Nausea and vomiting. History of CLL. COMPARISON STUDY: None. TECHNIQUE: Following IV administration of 93 mL of Optiray, axial images of the abdomen and pelvis we re obtained from the lung bases to the proximal femurs. Images were reviewed in the axial, sagittal, and coronal planes. IV contrast was administered without complication. Automated exposure control wa s utilized for the study. A dose lowering technique was utilized adhering to the principles of ALARA . CT DOSE: 1495.12 mGy.cm FINDINGS: Cardiomegaly is noted. There is a small hiatal hernia. No pneumatosis, free air or portal v enous gas is present. A few hepatic cysts measure up to 2.9 cm. There is no biliary or pancreatic beni tang dilatation. No peripancreatic or pericholecystic infiltration is present. Mild splenomegaly is no gerard. A 5.4 cm lesion within the upper pole of the right kidney contains a thin septation with calcifi cation. This represents a cyst. There several additional renal cysts. A few subcentimeter renal lesio ns are too small to characterize. Multiple bilateral renal calculi are present. These include a 6 mm left renal calculus. There is no hydronephrosis. Note is made of a nonobstructing 1.2 x 0.8 cm distal right ureteral calculus. Prostate is enlarged, measuring 5.5 cm in transverse dimension. Sigmoid res ection is noted. No evidence for a bowel obstruction. The appendix is normal. Colonic diverticulosis without evidence for acute diverticulitis. There are multiple enlarged abdominal and pelvic lymph nod es. Index peripancreatic node measures 2.2 x 1.9 cm. Index left external iliac node measures 2.9 x 1. 8 cm. Index right iliac chain node measures 2.3 x 1.8 cm. Ventral hernia repair with mesh is noted. IMPRESSION: 1. Numerous enlarged abdominal and pelvic lymph nodes, as described above. These are consistent with a history of CLL. Findings discussed with Dr. Alvarez at time of dictation. 2. Nonobstructing 1.2 x 0.8 cm distal right ureteral calculus. Bilateral nephrolithiasis. Enlarged pr ostate. 3. Colonic diverticulosis. No evidence for acute diverticulitis. 4. Status post sigmoid resection. No bowel obstruction. Normal appendix. ACT 112: Negative or not required by law. Electronically signed by: Garrett García M.D. 02/22/2022 6:57 AM
--- NOTE | 2022-02-22 07:07 | Magnetic Resonance Report ---
MRI OF THE BRAIN WITHOUT CONTRAST CLINICAL HISTORY: Dizzy eval for stroke COMPARISON STUDY: Head CT performed earlier today. TECHNIQUE: Utilizing a 1.5 Jes magnet and dedicated coil, multiplanar, multiecho imaging of the bra in was performed without IV contrast. FINDINGS: There are no foci of restricted diffusion to suggest acute infarct. There is a linear hyper intense focus within the posterior right temporal lobe on axial image 11 of 26 of the diffusion-weigh gerard sequence. This does not appear to represent an acute infarct and likely represent a vessel on the T2-weighted sequence. Ventricular system is unremarkable. Basal cisterns are patent. There are no ex traaxial collections. 3.2 x 2 cm CSF signal intensity lesion within the right middle cranial fossa re presents an arachnoid cyst. An old infarct within the lateral aspect of the right cerebral hemisphere measures 2.3 x 2.1 cm. There is a possible old lacunar infarct within the left cerebellar hemisphere . Flow-voids for the major intracranial vessels are present. Trace fluid within the right mastoid air cells is present. There is heterogeneous marrow signal within visualized skeletal structures on the sagittal T1-weighted sequence. IMPRESSION: 1. No acute intracranial findings. No evidence for acute infarction. 2. 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 3. Right middle cranial fossa arachnoid cyst. ACT 112: Negative or not required by law. Electronically signed by: Garrett García M.D. 02/22/2022 7:05 AM
[2022-02-22] MEDS ORDERED: METOCLOPRAMIDE HCL INJ 5 MG/ML 2 ML VIAL IV STA (07:14)
[2022-02-22] MEDS ORDERED: diphenhydrAMINE 50 MG/ML VIAL IV STA (07:14)
--- NOTE | 2022-02-22 07:15 | XRay Report ---
XR chest 1V portable CLINICAL HISTORY: weakness COMPARISON STUDY: Chest radiographs October 04, 2019. FINDINGS: Lung volumes are normal. Lungs are clear. There is no pneumothorax or pleural effusion. Car diomegaly is noted. Mediastinal contours are normal. There is no evidence for pulmonary edema. IMPRESSION: No acute cardiopulmonary findings. Cardiomegaly. ACT 112: Negative or not required by law. Electronically signed by: Garrett García M.D. 02/22/2022 7:13 AM
--- NOTE | 2022-02-22 07:18 | CT Scan Report ---
CT OF THE HEAD WITHOUT CONTRAST CLINICAL HISTORY: Dizzy. COMPARISON STUDY: Head CT November 05, 2018. CT DOSE: 691.05 mGy.cm TECHNIQUE: Helical axial images of the head were obtained without IV contrast. Automated exposure con trol was utilized for the study. A dose lowering technique was utilized adhering to the principles o f ALARA. FINDINGS: No acute intracranial hemorrhage, midline shift or mass effect is present. The ventricular system is unremarkable. The basal cisterns are patent. Note is made of a 3.1 x 2 cm right middle cran ial fossa arachnoid cyst. There is an old infarct within the lateral aspect of the right cerebellar h emisphere. There are no significant calvarial abnormalities. Trace fluid within the right mastoid air cells is present. There is minimal sinus mucosal thickening. IMPRESSION: 1. No acute intracranial findings. 2. Old infarct within the right cerebellar hemisphere. 3. 3.1 x 2 cm right middle cranial fossa arachnoid cyst. ACT 112: Negative or not required by law. Electronically signed by: Garrett García M.D. 02/22/2022 7:15 AM
[2022-02-22] MEDS ORDERED: ASPIRIN CHEW 324 MG PO STA (07:31)
[2022-02-22] MEDS ORDERED: MECLIZINE HCL 25 MG TAB PO PRN (08:15)
--- NOTE | 2022-02-22 08:28 | History & Physical Report ---
Date of Service February 22, 2022 Assessment & Plan (1) Stroke due to embolism: Plan: MRI brain shows Old infarct within the lateral right cerebellar hemisphere. Per discussion with radiologist, this could be several weeks old and could correlate with the onset of his unsteadiness and weakness without focal weakness. Likely embolic from afib. - CTA head/neck - Lipids, A1c - TTE w/ bubble study - Neurology consult - Initiate anticoagulation for afib; hold ASA unless neurology feels differently - Increase statin to 40 mg HS (2) Intractable nausea and vomiting: Plan: Unclear whether this is central vs. peripheral or combination. He does have a cerebellar stroke, but this is likely several weeks old, so doesn't seem like it would correlate to his acute-onset dizziness, nausea, and vomiting. - Neurology consult - PT consulted for BPPV testing (3) Atrial fibrillation: Plan: New-onset. Unknown start time. HR in the 60 - 70 range without any AV jalen blockade. TSH normal for his age. No other secondary etiology noted at this time. - Start anticoagulation - CHADs-VASC is 5. He had some prior diverticulitis, but none recently. No hx of ICH. - No need for beta-keith or calcium channel keith at this time. In fact, with HR ~65 bpm without any agent, he likely would not tolerate these. - Echo as above - I see no need for official cardiology consult, but will touch base to make sure they don't have other recs. (4) CLL (chronic lymphocytic leukemia): Plan: Follows with [facility]. Presently with watchful monitoring. No active treatment. - Monitor (5) Diabetes mellitus: Plan: Last A1c was 6.9%, but was in 2019. - Hold metformin - Sliding scale insulin - Repeat A1c (6) Hypertension: Plan: BP is 135/90 in the ER. - Hold HCTZ for now - Monitor, resume if needed (7) Hyperlipidemia: Plan: - Increase statin as above (8) Hypothyroidism: Plan: TSH normal for his age. - Continue home levothyroxine 75 mcg daily (9) DVT prophylaxis: Plan: Apixaban for afib History of Present Illness Primary Care Provider: Damaso Venegas MD 71yo M w/ hx of CLL and DM who presents with new afib and a posterior stroke. He reports feeling a bit weak and unsteady over the last week or two. He went to bed fairly "late" (does not recall exact time) and when he woke up, he thought he had to urinate. He walked to the bathroom, but felt significant dizziness, lightheadedness, and pre-sycnope which then included nausea. He threw up multiple times. He made it back to bed, but has been throwing up most of the night. He has had some tooth pain and been seeing a dentist and is on amoxicillin for this. He also notes he has had a headache with some coughing. He has noted some night sweats over the last few weeks. Denies shortness of breath, denies f/c, denies changes in weight or appeitite. No nausea or vomiting prior to the dizziness last evening. Allergies Allergy/AdvReac Type Severity Reaction Status Date / Time scallops Allergy Intermediate severe Verified 02/22/22 07:24 nausea / vomiting SHAHEEN Inhibitors Allergy Unknown Unknown Unverified 02/22/22 07:24 Home Medications Medication Instructions Recorded Confirmed Type atorvastatin 10 mg tablet 10 mg PO HS 06/28/19 02/22/22 History hydrochlorothiazide 25 mg tablet 25 mg PO QAM 06/28/19 02/22/22 History metformin 500 mg tablet 500 mg PO BIDM 06/28/19 02/22/22 History levothyroxine 75 mcg tablet 75 mcg PO DAILYBB 07/19/19 02/22/22 History aspirin 81 mg tablet,delayed 81 mg PO QAM 02/18/21 02/22/22 History release amoxicillin 875 mg tablet 875 mg PO BID 02/22/22 02/22/22 History Past Med/Surg History Medical History (Updated 02/22/22 @ 08:21 by Morales Del Angel MD) Arthritis Diabetes mellitus, type 2 Hepatitis per patient in 1969's had hepatitis - "worked in [employer]"- took medication Hyperlipidemia Hypertension Hypothyroidism 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 BROOKS-DX'D 2016 Surgical History History of arthroscopy R/L KNEE History of bowel resection FOR PERFORATED DIVERTICULITIS History of herniorrhaphy Family History Mother Family history of diabetes mellitus Other Colorectal cancer Denies family history of Ovarian cancer Prostate cancer Myocardial infarction Breast cancer Social History Smoking Status: Unknown if ever smoked Cigarettes Per Day: PIPE 1 X A DAY X MANY YRS; Second Hand Exposure: Yes (SPOUSE SMOKES); Hx Alcohol Use: Yes Alcohol type: beer, wine and hard liquor Alcohol Intake Frequency: 2-4 x/Month Hx Substance Use: No Preferred Language: Lao Communication Ability: Effective Visual Impairment: No Limitations Hearing Ability: Use of Hearing Aid Food Safety Field Specialist Required: No Beliefs That Will Affect Care: None marital status: Current Living Situation: Spouse current occupational status: employed and retired 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[employer], 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, 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[employer], 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 at [employer] now Feels Safe at Home: Yes Childhood Exposure to Second-Hand Smoke: Yes Dental Care, Regularly: Yes Physical Activity Frequency: Daily Seatbelt Use: always Sunscreen Use: Yes Assistive Devices: Walker Review of Systems Review of Systems: All systems reviewed & are unremarkable except as noted in HPI & below Physical Exam Constitutional: WD/WN, vitals as above Eyes: EOM intact bilaterally; no conjunctival abnormality ENMT: external ear and nose normal, oropharynx normal Neck: trachea midline, no thyromegaly normal visual inspection Respiratory: normal respiratory effort, lungs clear to auscultation no respiratory distress Cardiovascular: Rate/Rhythm: regular rate and + irregularly irregular Heart Sounds: no murmur Extremities: no edema Gastrointestinal (Abdomen): Inspection/Auscultation: abdomen normal to inspection; abdomen not distended Musculoskeletal: no cyanosis or clubbing, extremities motor strength 5/5 Skin: no rashes, warm and dry Neurologic: moves all extremities and awake Psychiatric: Orientation: alert, oriented to person and cooperative Results & Data Results & Data ([facility]) Vital Signs (Past 12 Hours) Vital Signs Temp Pulse Pulse Resp BP BP Pulse Ox 02/22/22 08:07 74 16 135/92 97 02/22/22 07:24 68 16 153/97 H 95 02/22/22 06:45 36.4 C L 71 16 156/98 H 97 02/22/22 06:00 66 20 154/97 H 97 02/22/22 04:36 72 16 150/91 H 94 02/22/22 03:57 78 18 94 02/22/22 03:33 36.5 C 75 18 146/79 H 96 Code Status & VTE Plan VTE Prophylaxis Plan VTE Prophylaxis will be ordered: Yes PG Care Time/CCT Total # of Minutes Spent Total Time Spent with Patient: Total time spent is greater than 50% in coordination of care (as documented) at patient's floor/unit and/or counseling patient: Coding Level of Care Code 73579 Initial Inpt Care Lvl 3 Diagnoses Stroke due to embolism I63.9 Intractable nausea and vomiting R11.2 Atrial fibrillation I48.91 Atrial fibrillation type: unspecified CLL (chronic lymphocytic leukemia) C91.10 Diabetes mellitus E11.9 Hypertension I10 Hyperlipidemia E78.5 Hypothyroidism E03.9 DVT prophylaxis Z29.9 (1) Atrial fibrillation Atrial fibrillation type: unspecified Qualified Code(s): I48.91 - Unspecified atrial fibrillation
[2022-02-22] MEDS ORDERED: DEXTROSE 50% 50 ML SYRINGE IV PRN (09:13)
[2022-02-22] MEDS ORDERED: ONDANSETRON INJ 2 MG/ML 2 ML VIAL IV PRN (09:13)
[2022-02-22] MEDS ORDERED: GLUCAGON FOR INJ 1 MG VIAL SQ PRN (09:13)
[2022-02-22] MEDS ORDERED: CARBOHYDRATES FOR HYPOGLYCEMIA PO PRN (09:13)
[2022-02-22] MEDS ORDERED: GLUCOSE 40% GEL 15 GM TUBE PO PRN (09:13)
[2022-02-22] MEDS ORDERED: GLUCOSE 10 TABS/TUBE PO PRN (09:13)
[2022-02-22] MEDS ORDERED: APIXABAN 5 MG TABLET PO SCH (09:45)
--- NOTE | 2022-02-22 10:08 | Electrocardiogram Report ---
Test Reason : Blood Pressure : / mmHG Vent. Rate : 069 BPM Atrial Rate : 080 BPM P-R Int : 000 ms QRS Dur : 110 ms QT Int : 430 ms P-R-T Axes : 000 -17 006 degrees QTc Int : 460 ms Poor data quality, interpretation may be adversely affected Atrial fibrillation Abnormal ECG When compared with ECG of 05-JUL-2019 10:46, Atrial fibrillation has replaced Sinus rhythm Confirmed by Damaso Licea ([id number]) on 02/22/2022 10:08:39 AM Referred By: REFERRED SELF Confirmed By:Satish Licea
[2022-02-22] MEDS ORDERED: OPTIRAY 320 125ml IV ONE (10:27)
--- NOTE | 2022-02-22 11:27 | Neurology Consultation ---
Date of Consultation February 22, 2022 Assessment & Plan (1) Stroke due to embolism: (2) Atrial fibrillation: Chronic appearing right cerebellar infarct identified in a 71-year-old male with a history of subacute dizziness, disequilibrium, poor balance over the past week, with new onset atrial fibrillation. Recent dental infection for which she has been treated with amoxicillin. Has been afebrile although he does have an elevated white blood cell count. Results of echocardiography and CT angiography of the head and neck are pending at this time. Given evidence of a chronic right cerebellar infarct and new onset atrial fibrillation, would recommend anticoagulation. However, would recommend exclusion of bacterial endocarditis in light of recent dental infection, elevated white count. Would follow-up with echocardiogram results. Follow-up with results of blood cultures as well. If patient does have evidence of bacterial endocarditis would hold on anticoagulation for the time being and treat as appropriate with antimicrobial therapy. Follow-up with results of echocardiogram and CT angiography as above. Permissive hypertension for the time being, systolic blood pressure 140 to 160 mmHg. Continue medical management of diabetes mellitus. Agree with increased dosage of atorvastatin. History of Present Illness Reason for Consultation: stroke Requesting Physician: Dr. Del Angel Attending Physician: Morales Del Angel MD History of Present Illness Patient is a 71-year-old male who presented to the emergency department overnight with a chief complaint of dizziness with associated nausea and vomiting that began acutely yesterday but occurring in the context of feeling weak and unsteady over the past 1 to 2 weeks. He also complains of a low-grade headache but has been attributing this to a recent dental infection for which she had been prescribed amoxicillin. He has some chronic difficulty with gait and balance and has a history of left total knee arthroplasty with incomplete range of motion of the left knee. Past medical history also notable for CLL and diabetes mellitus. A CT of the head had revealed a chronic infarct within the right cerebellar hemisphere as well as an incidental 3 x 2 cm right middle cranial fossa arachnoid cyst. A follow-up MRI of the brain had confirmed the chronic right cerebellar infarct and right middle cranial fossa arachnoid cyst. There were a few punctate areas of restricted diffusion within the right posterior temporal lobe although no definitive corresponding signal abnormality on ADC mapping thus potentially arguing against acute infarcts. Follow-up CT angiography of the head and neck have been completed although results were not available at this time. Electrocardiogram has revealed atrial fibrillation. An echocardiogram has been completed although results were not available at this ti sc. Allergies Allergy/AdvReac Type Severity Reaction Status Date / Time scallops Allergy Intermediate severe Verified 02/22/22 07:24 nausea / vomiting SHAHEEN Inhibitors Allergy Unknown Unknown Unverified 02/22/22 07:24 Home Medications Medication Instructions Recorded Confirmed Type atorvastatin 10 mg tablet 10 mg PO HS 06/28/19 02/22/22 History hydrochlorothiazide 25 mg tablet 25 mg PO QAM 06/28/19 02/22/22 History metformin 500 mg tablet 500 mg PO BIDM 06/28/19 02/22/22 History levothyroxine 75 mcg tablet 75 mcg PO DAILYBB 07/19/19 02/22/22 History aspirin 81 mg tablet,delayed 81 mg PO QAM 02/18/21 02/22/22 History release amoxicillin 875 mg tablet 875 mg PO BID 02/22/22 02/22/22 History Patient History Medical History (Updated 02/22/22 @ 08:21 by Morales Del Angel MD) Arthritis Diabetes mellitus, type 2 Hepatitis per patient in 1969's had hepatitis - "worked in [employer]"- took medication Hyperlipidemia Hypertension Hypothyroidism 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 BROOKS-DX'D 2016 Surgical History History of arthroscopy R/L KNEE History of bowel resection FOR PERFORATED DIVERTICULITIS History of herniorrhaphy Family History Mother Family history of diabetes mellitus Other Colorectal cancer Denies family history of Ovarian cancer Prostate cancer Myocardial infarction Breast cancer Social History Smoking Status: Unknown if ever smoked Cigarettes Per Day: PIPE 1 X A DAY X MANY YRS; Second Hand Exposure: Yes (SPOUSE SMOKES); Hx Alcohol Use: No Hx Substance Use: No Preferred Language: Northern Irish Communication Ability: Effective Visual Impairment: No Limitations Hearing Ability: Use of Hearing Aid Interior Design Coordinator Required: No Beliefs That Will Affect Care: None marital status: Current Living Situation: Spouse current occupational status: employed and retired 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[employer], 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, 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[place], works at [employer] now Feels Safe at Home: Yes Childhood Exposure to Second-Hand Smoke: Yes Dental Care, Regularly: Yes Physical Activity Frequency: Daily Seatbelt Use: always Sunscreen Use: Yes Assistive Devices: Hearing Aid - Bilateral Review of Systems Constitutional: no fever and no chills Eyes: no blind spots and no diplopia Ear, Nose, Mouth, Throat: no ear pain and no hearing loss Respiratory: no cough and no dyspnea Cardiovascular: no chest pain and no palpitations Gastrointestinal: no constipation and no diarrhea/loose stools Genitourinary: no urinary incontinence or no urinary urgency Musculoskeletal: no muscle weakness and no muscle atrophy Integumentary: no rash and no lesions Neurologic: as per Subjective / HPI, + gait abnormality and + headache(s) Psychiatric: no behavioral changes, no depression, no abnormal sleep pattern and no anxiety Hematologic / Lymphatic: no easy bruising and no lymphadenopathy Exam (Neuro) Constitutional: well developed and well nourished; no acute distress Eyes: normal visual simons by confrontation, PERRL, normal accommodation and E OM intact bilaterally; no fundoscopic abnormality, no nystagmus and no papilledema Cardiovascular: Vessels: normal carotid upstroke; no carotid bruit Neurologic: Oriented to:: Person, Place and Time Memory: Short Term Intact and Remote Intact Attention: Span Intact and Concentration Intact Language: Naming Objects and Repeating Phrases Speech Fluency: negative Dysarthria Speech Aphasia: negative Aphasia Fund of Knowledge: Current Events, Past History and Vocabulary Cranial Nerves: Normal II (Visual simons full to confrontation, visual acuity normal), III, IV, (Pupils equal round reactive to light and accommodation, eye movements normal), V (Facial sensation intact), VII (There is no facial droop or weakness), VIII (Hearing intact), IX, X (Palate elevates to midline), XI (Shoulder shrug intact) and XII (Tongue protrudes to midline) Motor Strength: Normal Lower Extremities and Normal Upper Extremities; negative Pronator Drift Motor Tone: Normal Lower Extremities and Normal Upper Extremities Muscle Bulk/Involuntary Movements: No Involuntary Movements; negative Muscle Atrophy Sensation: negative Light Touch Intact, Pain/Temperature Intact, Vibration Intact or Proprioception Intact Coordination: Normal; negative Limited Balance, Dysdiadochokinesia, Finger- Nose Abnormal or Heel-Higginbotham Abnormal Deep Tendon Reflexes: Rt Triceps: 1+, Lt Triceps: 1+, Rt Biceps: 1+, Lt Biceps: 1+, Rt Brachioradialis: 1+, Lt Brachioradialis: 1+, Rt Patellar: 1+, Lt Patellar: 1+, Rt Ankle: 0 and Lt Ankle: 0 Special Tests: negative Babinski Present Details: Gait could not be tested in the context of patient's current neurological status. Results & Data ([facility]) Vital Signs (Past 12 Hours) Vital Signs Temp Pulse Pulse Resp BP BP Pulse Ox 02/22/22 10:06 71 02/22/22 09:11 36.4 C L 67 18 155/97 H 92 02/22/22 08:07 74 16 135/92 97 02/22/22 07:24 68 16 153/97 H 95 02/22/22 06:45 36.4 C L 71 16 156/98 H 97 02/22/22 06:00 66 20 154/97 H 97 02/22/22 04:36 72 16 150/91 H 94 02/22/22 03:57 78 18 94 02/22/22 03:33 36.5 C 75 18 146/79 H 96 Laboratory Results WBC 18.63, hemoglobin 15.1, hematocrit 43.8, MCV 84.9, platelet count 176, sodium 132, potassium 4.2, BUN 31, creatinine 1.22, glucose 197, AST 15, ALT 11, TSH 5.343. Diagnostic Findings CT of the head and MRI of the brain are as described above in the history of present illness. I did review the images as well as the radiologist's inte rpretation of these tests. As above, there is a chronic right cerebellar infarct and incidental right middle cranial fossa arachnoid cyst. The brain MRI did reveal a punctate/linear hyperintense focus on diffusion-weighted sequences within the posterior right temporal lobe although potentially related to T2 shine through from a blood vessel in that location rather than an acute infarct. I did review the images as well as the radiologist interpretation of these tests and was able to appreciate the above findings. Coding Level of Care Code 55406 Initial Inpt Care Lvl 3 Diagnoses Stroke due to embolism I63.9 Atrial fibrillation I48.91 Atrial fibrillation type: unspecified (1) Atrial fibrillation Atrial fibrillation type: unspecified Qualified Code(s): I48.91 - Unspecified atrial fibrillation
--- NOTE | 2022-02-22 11:48 | XCELERA ---
[id number]
[2022-02-22] MEDS: INSULIN ASPART PER UNIT SC SCH ×3 (12:02→21:04)
--- NOTE | 2022-02-22 12:38 | CT Scan Report ---
CT ANGIOGRAM OF THE BRAIN; CT ANGIOGRAM OF THE NECK CLINICAL HISTORY: Dizziness. COMPARISON STUDY: Unenhanced CT of the brain and MRI of the brain performed earlier the same day 02/06 TECHNIQUE: Following the IV administration of 120 of Optiray 320, CT angiogram of the head and neck w as performed from the aortic arch to the vertex. Images are reviewed in the axial, sagittal, and josé nal planes. 3-D MIPS images are created and assessed. IV contrast was administered without complicati on. All measurements were calculated based on NASCET criteria. A dose lowering technique was utilize d adhering to the principles of ALARA. CT DOSE: 645.45 mGy.cm FINDINGS: Brain parenchyma: There is age-related involutional change noting minimal microangiopathic disease. A focus of right cerebellar encephalomalacia is consistent with a remote infarct. There is no evidence of hemorrhage, mass effect, or acute territorial ischemia noting angiographic phase technique. A 3.1 cm arachnoid cyst is again seen in the anterior right temporal fossa. There is no evidence of enhanc ing mass lesion on the angiogram phase images. The ventricles, sulci, and cisterns are normal in conf iguration. Phan-white matter differentiation is preserved. No extra-axial fluid collection is seen. Thoracic aorta: There is atherosclerotic calcification of the thoracic aorta. Visualized portions of the thoracic aorta are normal in caliber. The aortic arch demonstrates standard 3-vessel anatomy. Right carotid arterial system: The right common carotid artery is widely patent, as are the right int ernal and external carotid arteries. Calcified plaque is noted in the carotid bulb. Left carotid arterial system: The left common carotid artery is widely patent, as are the left risk management internship al and external carotid arteries. Advanced calcified plaque is noted in the carotid bulb. Vertebral arteries: Intervertebral arteries are patent bilaterally noting left-sided dominance. Subclavian arteries: Widely patent bilaterally. Intracranial vasculature: The little shell tribe of [place] a developmental incomplete. There is atherosclerotic c alcification of the cavernous carotid and vertebral arteries patchy The internal carotid arteries are patent at the skull base, as are the anterior and middle cerebral arteries bilaterally. The vertebro basilar system and posterior cerebral arteries are widely patent. The right P1 segment is diminutive. The left vertebral artery is dominant. There is no aneurysm, high-grade stenosis, or focal vessel cu t off seen throughout the intracranial circulation. Jugular veins: Patent bilaterally. Dural sinuses: Patent. Upper chest: Mild emphysematous change is noted at the apices. The esophagus is distended and filled with debris to the level of the thoracic inlet. Soft tissues: The visualized pharyngeal soft tissues are normal in appearance noting angiographic pha se technique. The oropharyngeal airway appears widely patent. The salivary and thyroid glands are nor mal in appearance. There are numerous mildly enlarged cervical, submandibular, and supraclavicular ly mph nodes. A hobbies and crafts sales representative cervical chain node on image #227 measures 2.6 x 2.0 cm. Skeletal structures: The skeletal structures are osteopenic. The calvarium appears intact. The cervic al spine is maintained noting multilevel spondylosis. No lytic or blastic lesion is seen. Several den tang caries are identified and there are periapical lucencies. Orbits: The bony orbits are intact. Orbital contents are normal as visualized. Sinuses and mastoids: The paranasal sinuses are clear. There is a small right mastoid effusion. The l eft mastoid air cells are well pneumatized. IMPRESSION: 1 There is no evidence of hemorrhage, mass effect, or acute territorial ischemia noting angiographic phase technique. 2. Unremarkable CT angiogram of the brain. 3. Unremarkable CT angiogram of the neck noting atherosclerotic calcification of the carotid bulbs. 4. The esophagus is dilated and filled with debris to the level of the thoracic inlet. Note that this may place the patient at risk for aspiration. 5. Cervical lymphadenopathy as above. The appearance suggests a lymphoproliferative disorder and leyn elation with the clinical findings and oncological history will be essential. 6. Mild emphysema. 7. There are several dental caries and periapical lucencies. Nonemergent follow-up with dentistry is recommended. 8. Additional findings as above. ACT 112: Negative or not required by law. Electronically signed by: Edwin Rojas M.D. 02/22/2022 12:37 PM
[2022-02-22] MEDS ORDERED: ATORVASTATIN 40 MG TAB PO SCH (21:00)
[2022-02-23 06:26] LABS: Hematocrit (blood only) 41.5 % (42-52); Hemoglobin 14.1 g/dL (14.0-18.0); Mean Corpuscular Volume 85.4 fL (80-100); Mean Platelet Volume 9.5 fL (7.4-10.4); Platelet Count 191 K/uL (130-400); RDW Coefficient of Variation 13.4 % (11.5-14.5); RDW Standard Deviation 41.9 fL (36.4-46.3); Red Blood Count 4.86 M/uL (4.7-6.1); White Blood Count 18.63 K/uL (4.8-10.8)
[2022-02-23] MEDS ORDERED: LEVOTHYROXINE SODIUM 75 MCG TABLET PO SCH (06:30)
[2022-02-23 07:05] LABS: BUN Creatinine Ratio 24.7 (10-20); Calcium 8.9 mg/dl (8.5-10.1); Chol HDL Ratio 4.1 (0-5); Creatinine Clr Calc Pharmacy 86.6 ml/min; Est GFR (African American) 91.3 ml/min; Est GFR (Non-African American) 78.8 ml/min; Magnesium 1.9 mg/dl (1.7-2.4); Potassium 4.1 mmol/L (3.5-5.1)
[2022-02-23] MEDS: INSULIN ASPART PER UNIT SC SCH ×2 (08:25→12:25)
[2022-02-23 09:00] LABS: Estimated Average Glucose 169 mg/dl; Hemoglobin A1C 7.5 % (4.5-5.6)
[2022-02-23] MEDS ORDERED: APIXABAN 2.5 MG TAB PO SCH (10:30)
--- NOTE | 2022-02-23 12:41 | Cardiology Consultation ---
Date of Consultation February 23, 2022 Assessment & Plan (1) Atrial fibrillation: (2) Mild ascending aorta dilatation: 1. Atrial fibrillation: This appears to be likely etiology for his stroke. Unclear duration of his arrhythmia. He has not been aware of any palpitations. He does not monitor his heart rate or pulse at home. He claims to be seen by multiple providers primarily for his CLL, but has not been noticed to have any irregularity in his heart rate or variation and his vital signs. The likely etiology for his atrial fibrillation is age, obesity, hypertension and possible sleep apnea based on his body habitus. He does have left atrial dilation. He has a relatively slow ventricular response. There was some concern about pauses overnight. However, I do not think these are clinically relevant. Provided he is ambulatory without symptoms do not believe he requires any a dditional attention to his heart rates. He has multiple risk factors for additional embolic events and was started appropriately on systemic anticoagulation. At some point we could consider a cardioversion, but in the absence of symptoms this may have limited benefit. A decision in this regard can be deferred to the outpatient setting. 2. Dilated ascending aorta: Noted to be mildly dilated on his echocardiogram. More formal evaluation with CT scanning could be considered next year continue treatment of his hypertension. Not a good candidate for beta-blockade based on his relatively low heart rates. History of Present Illness Reason for Consultation: Atrial fibrillation Requesting Physician: Jose M Attending Physician: Morales Del Angel MD History of Present Illness The patient is a 71-year-old gentleman without a known history of cardiac disease who presents to the hospital with symptoms of severe dizziness and vomiting. Patient states that ever since starting a prescription of amoxicillin for a tooth abscess he began to feel poorly. Initially had a severe headache. He did develop some nausea and abdominal symptoms. He eventually developed the acute onset of severe dizziness and intractable vomiting. Based on the symptoms he presented to the emergency room 2 mornings ago and was discovered to have a cerebellar infarct. He was also discovered to have atrial fibrillation. The patient states that he is currently feeling well. His symptoms of nausea have resolved. He has not had dizziness in bed but has not been ambulatory yet. He has been unaware of any palpitations. Leading up to his recent symptoms he claims to be an active individual. He reports coughing regularly and performing yd work. Generally speaking he does not have symptoms associated with that activity. He denies limiting dyspnea. He has not report symptoms of chest pain. He did not report symptoms of dizziness or lightheadedness previously. No history of syncope. Allergies Allergy/AdvReac Type Severity Reaction Status Date / Time scallops Allergy Intermediate severe Verified 02/22/22 07:24 nausea / vomiting SHAHEEN Inhibitors Allergy Unknown Unknown Unverified 02/22/22 07:24 Home Medications Medication Instructions Recorded Confirmed Type atorvastatin 10 mg tablet 10 mg PO HS 06/28/19 02/22/22 History hydrochlorothiazide 25 mg tablet 25 mg PO QAM 06/28/19 02/22/22 History metformin 500 mg tablet 500 mg PO BIDM 06/28/19 02/22/22 History levothyroxine 75 mcg tablet 75 mcg PO DAILYBB 07/19/19 02/22/22 History aspirin 81 mg tablet,delayed 81 mg PO QAM 02/18/21 02/22/22 History release amoxicillin 875 mg tablet 875 mg PO BID 02/22/22 02/22/22 History apixaban 5 mg tablet 5 mg PO BID #60 tab 02/23/22 Rx atorvastatin 40 mg tablet 40 mg PO HS #30 tab 02/23/22 Rx Patient History Medical History (Updated 02/23/22 @ 12:38 by Damaso Lciea MD) Arthritis Diabetes mellitus, type 2 Hepatitis per patient in 1970's had hepatitis - "worked in [employer]"- took medication Hyperlipidemia Hypertension Hypothyroidism 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 BROOKS-DX'D 2016 Surgical History History of arthroscopy R/L KNEE History of bowel resection FOR PERFORATED DIVERTICULITIS History of herniorrhaphy Family History Mother Family history of diabetes mellitus Other Colorectal cancer Denies family history of Ovarian cancer Prostate cancer Myocardial infarction Breast cancer Social History Smoking Status: Unknown if ever smoked Cigarettes Per Day: PIPE 1 X A DAY X MANY YRS; Second Hand Exposure: Yes (SPOUSE SMOKES); Hx Alcohol Use: No Hx Substance Use: No Preferred Language: Faroese Communication Ability: Effective Visual Impairment: No Limitations Hearing Ability: Use of Hearing Aid Civil Engineering Teacher Required: No Beliefs That Will Affect Care: None marital status: Current Living Situation: Spouse current occupational status: employed and retired 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 Mood and affect appeared normal. He answered all questions appropriately. Obese HEENT: Pupils are equal and reactive to light and accommodation. Extraocular movements are intact. The sclerae are anicteric. Neuro: Cranial nerves intact Lungs: Clear to auscultation bilaterally. He has good air movement without use of accessory muscles. No rales wheezes or rhonchi. Cardiac: Heart demonstrates an irregular rate and rhythm. Normal S1 and S2. No murmurs on examination. Pulses: The patient has palpable radial pulses bilaterally that are equal in intensity Extremities: There was no evidence of hypoperfusion. There is no cyanosis or clubbing. There is no edema. Skin: I did not appreciate any rashes on examination today. Results & Data ([facility]) Vital Signs (Past 12 Hours) Vital Signs Temp Pulse Pulse Resp BP BP Pulse Ox 02/23/22 07:46 36.8 C 65 16 132/87 95 02/23/22 07:45 36.9 C 68 18 134/78 93 02/23/22 04:00 36.8 C 58 L 18 136/79 97 Laboratory Results Abnormal Lab Results 02/22/22 02/22/22 02/23/22 16:36 20:32 06:10 WBC RBC Hgb Hct MCV MCH MCHC RDW Std Deviation RDW Coeff of Mariya Plt Count MPV Sodium 132 L Potassium 4.1 Chloride 101 Carbon Dioxide 24 Anion Gap 7 BUN 24 H Creatinine 0.97 Est Cr Clr Drug Dosing 86.6 Est GFR ( Amer) 91.3 Est GFR (Non-Af Amer) 78.8 BUN/Creatinine Ratio 24.7 H Glucose 135 H POC Glucose 210 H 179 H Estimat Average Glucose Hemoglobin A1c Calcium 8.9 Magnesium 1.9 Triglycerides 70 Cholesterol 98 LDL Cholesterol, Calc 60 VLDL Cholesterol, Calc 14 HDL Cholesterol 24 Cholesterol/HDL Ratio 4.1 Procalcitonin 02/23/22 02/23/22 02/23/22 06:10 06:10 07:34 WBC 18.63 H RBC 4.86 Hgb 14.1 Hct 41.5 L MCV 85.4 MCH 29.0 MCHC 34.0 RDW Std Deviation 41.9 RDW Coeff of Mariya 13.4 Plt Count 191 MPV 9.5 Sodium Potassium Chloride Carbon Dioxide Anion Gap BUN Creatinine Est Cr Clr Drug Dosing Est GFR ( Amer) Est GFR (Non-Af Amer) BUN/Creatinine Ratio Glucose POC Glucose 149 H Estimat Average Glucose 169 Hemoglobin A1c 7.5 H Calcium Magnesium Triglycerides Cholesterol LDL Cholesterol, Calc VLDL Cholesterol, Calc HDL Cholesterol Cholesterol/HDL Ratio Procalcitonin 02/23/22 02/23/22 07:54 11:49 WBC RBC Hgb Hct MCV MCH MCHC RDW Std Deviation RDW Coeff of Mariya Plt Count MPV Sodium Potassium Chloride Carbon Dioxide Anion Gap BUN Creatinine Est Cr Clr Drug Dosing Est GFR ( Amer) Est GFR (Non-Af Amer) BUN/Creatinine Ratio Glucose POC Glucose 117 H Estimat Average Glucose Hemoglobin A1c Calcium Magnesium Triglycerides Cholesterol LDL Cholesterol, Calc VLDL Cholesterol, Calc HDL Cholesterol Cholesterol/HDL Ratio Procalcitonin < 0.05 Diagnostic Findings Echocardiogram obtained on 02/22/2022: Normal LV systolic function with ejection fraction of 60 65%. Mild LVH. Moderate left atrial dilation. Chest x-ray obtained the time admission not reveal any acute cardiopulmonary disease Brain MRI obtained the time admission revealed an old right cerebellar infarct. ECG Additional Comments: EKG obtained the time admission revealed atrial fibrillation with controlled ventricular rate. PG Care Time/CCT Total # of Minutes Spent Total Time Spent with Patient: Total time spent is greater than 50% in coordination of care (as documented) at patient's floor/unit and/or counseling patient: Coding Level of Care Code 07863 Initial Inpt Care Lvl 3 Diagnoses Atrial fibrillation I48.91 Atrial fibrillation type: unspecified Mild ascending aorta dilatation I77.810 (1) Atrial fibrillation Atrial fibrillation type: unspecified Qualified Code(s): I48.91 - Unspecified atrial fibrillation
--- NOTE | 2022-02-23 14:50 | Electrocardiogram Report ---
Test Reason : Blood Pressure : / mmHG Vent. Rate : 056 BPM Atrial Rate : 055 BPM P-R Int : 000 ms QRS Dur : 108 ms QT Int : 440 ms P-R-T Axes : 000 018 010 degrees QTc Int : 424 ms Poor data quality, interpretation may be adversely affected Atrial fibrillation with slow ventricular response Abnormal ECG When compared with ECG of 22-FEB-2022 03:39, No significant change was found Confirmed by Damaso Licea ([id number]) on 02/23/2022 2:50:11 PM Referred By: REFERRED SELF Confirmed By:Satish Licea
--- NOTE | 2022-02-23 15:48 | Discharge Summary ---
Date of Service February 23, 2022 Admission HPI Per Admitting Provider 71yo M w/ hx of CLL and DM who presents with new afib and a posterior stroke. He reports feeling a bit weak and unsteady over the last week or two. He went to bed fairly "late" (does not recall exact time) and when he woke up, he thought he had to urinate. He walked to the bathroom, but felt significant dizziness, lightheadedness, and pre-sycnope which then included nausea. He threw up multiple times. He made it back to bed, but has been throwing up most of the night. He has had some tooth pain and been seeing a dentist and is on amoxicillin for this. He also notes he has had a headache with some coughing. He has noted some night sweats over the last few weeks. Denies shortness of breath, denies f/c, denies changes in weight or appeitite. No nausea or vomiting prior to the dizziness last evening. Principal Diagnosis Embolic stroke Newly diagnosed atrial fibrillation Discharge Exam Constitutional WD/WN, vitals as above Eyes EOM intact bilaterally; no conjunctival abnormality ENMT external ear and nose normal, oropharynx normal Neck trachea midline, no thyromegaly normal visual inspection Respiratory normal respiratory effort, lungs clear to auscultation no respiratory distress Cardiovascular Rate/Rhythm: regular rate and + irregularly irregular Heart Sounds: no murmur Extremities: no edema Gastrointestinal (Abdomen) Inspection/Auscultation: abdomen normal to inspection; abdomen not distended Musculoskeletal no cyanosis or clubbing, extremities motor strength 5/5 Skin no rashes, warm and dry Neurologic moves all extremities and awake Psychiatric Orientation: alert, oriented to person and cooperative Discharge Data Allergies Allergy/AdvReac Type Severity Reaction Status Date / Time scallops Allergy Intermediate severe Verified 02/22/22 07:24 nausea / vomiting SHAHEEN Inhibitors Allergy Unknown Unknown Unverified 02/22/22 07:24 Consultations 02/22/22 07:13 ED Decision to Admit Stat 02/22/22 09:13 Consult Neurology Routine 02/22/22 23:09 Consult Cardiology Routine Ordered Studies 02/22/22 03:42 CT abd pelvis IV con only Urgent CT head/brain wo con Urgent 02/22/22 05:14 MR brain wo con Stat 02/22/22 09:13 CT angio head w con Routine CT angio neck with con Routine Hospital Course (1) Stroke due to embolism: MRI brain shows Old infarct within the lateral right cerebellar hemisphere. Per discussion with radiologist, this could be several weeks old and could correlate with the onset of his unsteadiness and weakness without focal weakness. Likely embolic from afib. - CTA head/neck - showed some"atherosclerotic calcification of the carotid bulbs" - A1c: 7.5% -> Can work on improved glucose control with PCP. - TTE w/ bubble study -> No PFO. - Neurology consulted - Initiated anticoagulation for afib; continue ASA also per neurology. - Increase statin to 40 mg HS (2) Intractable nausea and vomiting: Unclear whether this is central vs. peripheral or combination. He does have a cerebellar stroke, but this is likely several weeks old, so doesn't seem like it would correlate to his acute-onset dizziness, nausea, and vomiting. - Neurology consult - Completely resolved by discharge - Presumably due to a small stroke. No need for meclizine or Zofran on discharge. (3) Atrial fibrillation: New-onset. Unknown start time. HR in the 60 - 70 range without any AV jalen blockade. TSH normal for his age. No other secondary etiology noted at this time. - Start anticoagulation - CHADs-VASC is 5. He had some prior diverticulitis, but none recently. No hx of ICH. - No need for beta-keith or calcium channel keith at this time. In fact, with HR ~65 bpm without any agent, he likely would not tolerate these. - Echo showed EF 60 - 65%, otherwise largely normal. - Seen by cardiology for 2s pauses overnight. No need for pacemaker. Will f/u outpatient clinic. (4) CLL (chronic lymphocytic leukemia): Follows with CCP. Presently with watchful monitoring. No active treatment. - CTA neck showed Cervical lymphadenopathy - suggests a lymphoproliferative disorder. - Assume this is from his CLL. Oncology f/u. Will forward this note to them. (5) Diabetes mellitus: Last A1c was 6.9%, but was in 2019. Now 7.5%. - Held metformin; resume on discharge. (6) Hypertension: BP is 135/90 in the ER. - Continue HCTZ (7) Hyperlipidemia: - Increase statin as above (8) Hypothyroidism: TSH normal for his age. - Continue home levothyroxine 75 mcg daily (9) DVT prophylaxis: Apixaban for afib Total Time Total Time Spent Total Time Spent (In Minutes): 45 Discharge Plan Discharge Items Patient Disposition: Home - Self-Care Reason For Visit: POSTERIOR STROKE, AFIB Discharge Diagnosis: Stroke in the back half of the brain Newly diagnosed atrial fibrillation Activity: Resume your previous activity Non-emergency contact: Primary Care Provider and Neurologist Call non-emergency contact if: your symptoms worsen Follow-up/Referrals: Damaso Venegas MD [Primary Care Provider] - 03/02/22 2:00 pm (Appointment with MARII Kay) Kwabena Shields MD [Physician] - (Please see Dr. Shields or someone in his office in 1-2 weeks for follow-up.) Damaso Licea MD [Physician] - (Please see Dr. Licea or a remanufacturing technician of your choosing in 1-2 weeks after discharge.) Diet: Carb Consistent or DM2 and Heart Healthy Addtl Attending Provider Instructions: Mr. Gomez, You were admitted to the hospital with dizziness and nausea. We think this was caused by some small strokes you have been having. We think the strokes are coming from a heart rhythm called atrial fibrillation which can occur as people get older. Please follow up with Dr. Shields or one of his colleagues in 1-2 weeks for stroke follow-up. Dr. Licea saw you for your atrial fibrillation. He would like to see you in the office in 1-2 weeks as well to be sure you are doing well. We have started you on a blood thinner which you should take one tablet in the morning and one tablet at night. We have also increased your cholesterol medication to a higher dose which can help reduce the chances of stroke and heart attack. Pending Studies at Discharge: No Stand-Alone Forms: My PaeDae, Smoking Cessation Medications and DC Order Prescriptions: New atorvastatin 40 mg Tablet 40 mg PO HS Qty: 30 RF: 0 apixaban 5 mg tablet 5 mg PO BID Qty: 60 RF: 0 Continued levothyroxine 75 mcg tablet 75 mcg PO DAILYBB RF: 0 aspirin 81 mg tablet,delayed release (DR/EC) 81 mg PO QAM RF: 0 metformin 500 mg Tablet 500 mg PO BIDM RF: 0 hydrochlorothiazide 25 mg Tablet 25 mg PO QAM RF: 0 amoxicillin 875 mg tablet 875 mg PO BID RF: 0 Discontinued atorvastatin 10 mg Tablet 10 mg PO HS RF: 0 Discharge Orders: Discharge Order (Routine); Ordered 02/23/22 Ordered By: Morales Ny/Other Patient Handouts: Managing Type 2 Diabetes, 5 Steps for Eating Healthier Admission Data Admit Date/Time: 02/22/22 08:14 Attending Provider: Morales Del Angel Admit Provider: Morales Del Angel Primary Care Provider: Damaso Venegas Other Providers: Morales Del Angel ; Kwabena Shields ; Christophe Hernandez Coding Level of Care Code D/C DAY MANAGEMENT >30 MINS Diagnoses Stroke due to embolism I63.9 Intractable nausea and vomiting R11.2 Atrial fibrillation I48.91 Atrial fibrillation type: unspecified CLL (chronic lymphocytic leukemia) C91.10 Diabetes mellitus E11.9 Hypertension I10 Hyperlipidemia E78.5 Hypothyroidism E03.9 DVT prophylaxis Z29.9
== END 2022-02-23 17:10 | disposition home or self-care (01) ==
LOC: ED 03:27 → 2N 08:14 → INTOOBSV 08:14 → 2N 08:54

== ENCOUNTER 2022-02-24 08:17 | Inpatient (IN) ==
[2022-02-24] MEDS ORDERED: LORazepam 2 MG/1 ML VIAL IV STA (08:34)
[2022-02-24] MEDS ORDERED: SODIUM CHLORIDE 0.9% 500 ML IV ONE (08:35)
--- NOTE | 2022-02-24 08:42 | Emergency Department Note ---
Impression & Plan Dizziness, Atrial fibrillation, Stroke due to embolism, Vomiting ED Provider Note NAME: ALEJA REZA AGE: 71 SEX: M : 1950 ARRIVES VIA: Ambulance INFORMANT: Patient ED PROVIDER(S): Philip Larsen DO CHIEF COMPLAINT: dizzy HPI: Patient is a 71-year-old male who was just discharged followingMRI of brain which shows Old infarct within the lateral right cerebellar hemisphere. He was just discharged yesterday. Last night around 12 AM he started become extremely dizzy and vomiting. He cannot get up and move around as he feels too unsteady. Denies any headache. No chest pain or shortness of breath. No dysuria, urgency, or frequency. No other exacerbating or remitting factors. ROS: See above HPI for pertinent positives & negatives. A total of 10 systems reviewed and were otherwise negative. PAST MEDICAL HISTORY:See Below PAST SURGICAL HISTORY:See Below FAMILY HISTORY:See Below SOCIAL HISTORY:See Below HOME MEDICATIONS:See Below ALLERGIES:See Below VITALS:See Below PHYSICAL EXAMINATION: GENERAL: Sitting up in bed, alert, well appearing, well nourished, no distress, non-toxic EYE EXAM: normal conjunctiva. PERRL and EOM's intact with a rotatory nystagmus OROPHARYNX: no exudate, no erythema, lips, buccal mucosa, and tongue normal and mucous membranes are moist NECK: supple, no nuchal rigidity, no adenopathy, non-tender LUNGS: Clear to auscultation. Normal chest wall mechanics HEART: no murmurs, S1 normal and S2 normal ABDOMEN: abdomen soft, non-tender, normo-active bowel sounds, no masses, no rebound or guarding. UPPER EXTREMITIES: upper extremities are grossly normal. LOWER EXTREMITIES: No pitting edema. NEURO EXAM: Normal sensorium, cranial nerves II-XII intact, normal speech, no weakness of arms, no weakness of legs. No drift. Finger to nose intact. Gross sensation intact. MEDICAL DECISION MAKING: Patient is a 71-year-old male who presents to the ER who was recently just discharged following a posterior CVA likely embolic secondary to A. fib. This morning he notes the dizziness got significantly worse. IV was established blood work was obtained. Labs show leukocytosis of 20,000 which is just slightly higher than what it was when he was discharged at 18. No anemia. BMP with a mild hyponatremia at 135. LFTs bilirubin was unremarkable. UA was clean. COVID was negative. CT head was negative. EKG was nondiagnostic. He was updated at bedside. He was given fluids Zofran and Ativan. Patient was discussed with Morales Del Angel for further evaluation Triage Nursing notes reviewed. Limited review of prior medical records performed Vital Signs: reviewed and remarkable for HTN Differential diagnosis: Differential diagnosis includes etiologies such as benign positional vertigo, dehydration, hypovolemia, anemia, tumor, infection, hypoglycemia, electrolyte abnormalities, cardiac sources, intracerebral event, toxicologic, neurological, as well as others were entertained. ER treatment provided: See below Diagnostics interpreted by me: ECG: Isaias carrera her rate is 69 Left axis No PVCs QTC 441 Cardiac Monitoring: An order was placed for continuous cardiac monitoring. The monitor shows a rate of 70 with Afib rhythm. Laboratory studies: As stated above and show below. Imaging studies: CT head was negative Portable AP upright 1 view of the chest was unremarkable Consultation(s): Discussed with Dr. 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 BROOKS-DX'D 2016 Surgical History History of arthroscopy R/L KNEE History of bowel resection FOR PERFORATED DIVERTICULITIS History of herniorrhaphy Family History Mother Family history of diabetes mellitus Other Colorectal cancer Denies family history of Ovarian cancer Prostate cancer Myocardial infarction Breast cancer Social History Smoking Status: Never smoker Tobacco Type: Pipe and Smokeless Tobacco (Dip or Chew) Cigarettes Per Day: PIPE 1 X A DAY X MANY YRS; Second Hand Exposure: Yes (SPOUSE SMOKES); Hx Alcohol Use: No Hx Substance Use: No Preferred Language: Bengali Communication Ability: Effective Visual Impairment: No Limitations Hearing Ability: Use of Hearing Aid Photo Printer Required: No Beliefs That Will Affect Care: None marital status: Current Living Situation: Spouse current occupational status: employed and retired 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[employer], 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, 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 [employer], works at [employer] now Feels Safe at Home: Yes Childhood Exposure to Second-Hand Smoke: Yes Dental Care, Regularly: Yes Physical Activity Frequency: Daily Seatbelt Use: always Sunscreen Use: Yes Assistive Devices: Glasses Allergies Allergies Allergy/AdvReac Type Severity Reaction Status Date / Time scallops Allergy Intermediate severe Verified 02/24/22 09:59 nausea / vomiting SHAHEEN Inhibitors Allergy Unknown Unknown Unverified 02/24/22 09:59 Home Meds Home Medications Medication Instructions Recorded Confirmed hydrochlorothiazide 25 mg tablet 25 mg PO QAM 06/28/19 02/24/22 metformin 500 mg tablet 500 mg PO BIDM 06/28/19 02/24/22 levothyroxine 75 mcg tablet 75 mcg PO DAILYBB 07/19/19 02/24/22 aspirin 81 mg tablet,delayed 81 mg PO QAM 02/18/21 02/24/22 release amoxicillin 875 mg tablet 875 mg PO BID 02/22/22 02/24/22 Previous Rx's Medication Instructions Recorded apixaban 5 mg tablet 5 mg PO BID #60 tab 02/23/22 atorvastatin 40 mg tablet 40 mg PO HS #30 tab 02/23/22 Results & Data (ED) Vital Signs Vital Signs - 24 hr 02/24/22 08:20 02/24/22 08:22 02/24/22 08:30 Temperature 36.4 C L Temperature Source Oral Oral Pulse Rate 76 66 Pulse Rate [Apical] Pulse Rate from SpO2 Sensor 66 Pulse Rhythm Irregular Pulse Rhythm [Apical] Pulse Strength Normal Respiratory Rate 16 18 Respiratory Effort / Characteristics Non-Labored Respiratory Depth Normal Respiratory Pattern Regular Blood Pressure 168/108 H 165/116 H Blood Pressure [Right Arm] Blood Pressure Mean 128 132 Blood Pressure Mean [Right Arm] Pulse Oximetry 96 97 96 Oxygen Delivery Method Room Air Room Air Sepsis Recent Fever Within 48 Hours No Sepsis New/Unexplained Change in Mental Status No Sepsis Action Taken by Nursing No Action Required 02/24/22 09:30 02/24/22 09:31 02/24/22 09:36 Temperature Temperature Source Pulse Rate 76 68 Pulse Rate [Apical] 62 Pulse Rate from SpO2 Sensor 78 69 Pulse Rhythm Pulse Rhythm [Apical] Regular Pulse Strength Respiratory Rate 26 H 7 L 20 Respiratory Effort / Characteristics Non-Labored Respiratory Depth Normal Respiratory Pattern Regular Blood Pressure 168/103 H Blood Pressure [Right Arm] 168/103 H Blood Pressure Mean 124 Blood Pressure Mean [Right Arm] 124 Pulse Oximetry 83 L 95 94 Oxygen Delivery Method Room Air Sepsis Recent Fever Within 48 Hours Sepsis New/Unexplained Change in Mental Status Sepsis Action Taken by Nursing 02/24/22 10:00 02/24/22 10:30 Temperature Temperature Source Pulse Rate 74 66 Pulse Rate [Apical] 65 Pulse Rate from SpO2 Sensor Pulse Rhythm Pulse Rhythm [Apical] Regular Pulse Strength Respiratory Rate 21 12 Respiratory Effort / Characteristics Non-Labored Respiratory Depth Normal Respiratory Pattern Regular Blood Pressure 168/106 H 176/91 H Blood Pressure [Right Arm] 176/91 H Blood Pressure Mean 126 119 Blood Pressure Mean [Right Arm] 119 Pulse Oximetry 94 Oxygen Delivery Method Room Air Sepsis Recent Fever Within 48 Hours Sepsis New/Unexplained Change in Mental Status Sepsis Action Taken by Nursing Laboratory Data Result diagrams: 02/24/22 08:28 02/24/22 08:28 Lab Results 02/24/22 02/24/22 02/24/22 Range/Units 08:28 08:28 08:28 WBC 20.46 H (4.8-10.8) K/uL RBC 5.21 (4.7-6.1) M/uL Hgb 15.3 (14.0-18.0) g/dL Hct 44.3 (42-52) % MCV 85.0 (80-100) fL MCH 29.4 (25-34) pg MCHC 34.5 (32-36) g/dL RDW Std Deviation 41.9 (36.4-46.3) fL RDW Coeff of Mariya 13.5 (11.5-14.5) % Plt Count 235 (130-400) K/uL MPV 9.6 (7.4-10.4) fL Immature Gran % (Auto) 0.2 % Neut % (Auto) 34.2 % Lymph % (Auto) 63.6 % [place] % (Auto) 1.7 % Eos % (Auto) 0.1 % Baso % (Auto) 0.2 % Neut # (Auto) 6.97 H (1.4-6.5) K/uL Lymph # (Auto) 13.01 H (1.2-3.4) K/uL Independence # (Auto) 0.35 (0.11-0.59) K/uL Eos # (Auto) 0.03 (0-0.5) K/uL Baso # (Auto) 0.05 (0-0.2) K/uL Immature Gran # (Auto) 0.05 H (0.00-0.02) K/uL Smudge Cells Present PT 12.1 H (9.0-12.0) Seconds INR 1.1 (0.9-1.1) Sodium 135 L (136-145) mmol/L Potassium 4.4 (3.5-5.1) mmol/L Chloride 102 (98-107) mmol/L Carbon Dioxide 23 (21-32) mmol/L Anion Gap 10 (3-11) BUN 27 H (6-23) mg/dl Creatinine 0.86 (0.6-1.4) mg/dl Est Cr Clr Drug Dosing 99.8 ml/min Est GFR ( Amer) 101.8 ml/min Est GFR (Non-Af Amer) 87.9 ml/min BUN/Creatinine Ratio 31.4 H (10-20) Glucose 169 H (70-99(Fasting)) mg/dl Calcium 9.3 (8.5-10.1) mg/dl Total Bilirubin 1.0 (0.2-1.0) mg/dl AST 13 (13-39) U/L ALT 14 (7-52) U/L Alkaline Phosphatase 64 (34-104) U/L Troponin I High Sens 4.4 (0-20) pg/ml Total Protein 7.4 (6.0-8.3) gm/dl Albumin 4.3 (3.4-5.0) gm/dl Globulin 3.1 (2.5-4.0) gm/dl Albumin/Globulin Ratio 1.4 (0.9-2) Procalcitonin (0-0.5) ng/ml Urine Color Urine Appearance (Clear) Urine pH (4.5-7.5) Ur Specific [place] (1.000-1.030) Urine Protein (Negative) Urine Glucose (UA) (Negative) Urine Ketones (Negative) Urine Blood (Negative) Urine Nitrite (Negative) Urine Bilirubin (Negative) Urine Urobilinogen (Negative) Ur Leukocyte Esterase (Negative) Urine WBC (Auto) (0-5) /hpf Urine RBC (Auto) (0-4) /hpf U Hyaline Cast (Auto) (0-5) /lpf U Epithel Cells (Auto) (0-5) /lpf Urine Bacteria (Auto) (Negative) SARS-CoV-2, RNA, NAAT (NEGATIVE) 02/24/22 02/24/22 02/24/22 Range/Units 08:28 08:35 09:50 WBC (4.8-10.8) K/uL RBC (4.7-6.1) M/uL Hgb (14.0-18.0) g/dL Hct (42-52) % MCV (80-100) fL MCH (25-34) pg MCHC (32-36) g/dL RDW Std Deviation (36.4-46.3) fL RDW Coeff of Mariya (11.5-14.5) % Plt Count (130-400) K/uL MPV (7.4-10.4) fL Immature Gran % (Auto) % Neut % (Auto) % Lymph % (Auto) % [place] % (Auto) % Eos % (Auto) % Baso % (Auto) % Neut # (Auto) (1.4-6.5) K/uL Lymph # (Auto) (1.2-3.4) K/uL [place] # (Auto) (0.11-0.59) K/uL Eos # (Auto) (0-0.5) K/uL Baso # (Auto) (0-0.2) K/uL Immature Gran # (Auto) (0.00-0.02) K/uL Smudge Cells PT (9.0-12.0) Seconds INR (0.9-1.1) Sodium (136-145) mmol/L Potassium (3.5-5.1) mmol/L Chloride (98-107) mmol/L Carbon Dioxide (21-32) mmol/L Anion Gap (3-11) BUN (6-23) mg/dl Creatinine (0.6-1.4) mg/dl Est Cr Clr Drug Dosing ml/min Est GFR ( Amer) ml/min Est GFR (Non-Af Amer) ml/min BUN/Creatinine Ratio (10-20) Glucose (70-99(Fasting)) mg/dl Calcium (8.5-10.1) mg/dl Total Bilirubin (0.2-1.0) mg/dl AST (13-39) U/L ALT (7-52) U/L Alkaline Phosphatase (34-104) U/L Troponin I High Sens (0-20) pg/ml Total Protein (6.0-8.3) gm/dl Albumin (3.4-5.0) gm/dl Globulin (2.5-4.0) gm/dl Albumin/Globulin Ratio (0.9-2) Procalcitonin < 0.05 (0-0.5) ng/ml Urine Color Yellow Urine Appearance Clear (Clear) Urine pH 6.5 (4.5-7.5) Ur Specific [place] 1.022 (1.000-1.030) Urine Protein 2+ H (Negative) Urine Glucose (UA) Negative (Negative) Urine Ketones Negative (Negative) Urine Blood Trace H (Negative) Urine Nitrite Negative (Negative) Urine Bilirubin Negative (Negative) Urine Urobilinogen Negative (Negative) Ur Leukocyte Esterase Negative (Negative) Urine WBC (Auto) 1-5 (0-5) /hpf Urine RBC (Auto) 0-4 (0-4) /hpf U Hyaline Cast (Auto) 1-5 (0-5) /lpf U Epithel Cells (Auto) 10-20 H (0-5) /lpf Urine Bacteria (Auto) Negative (Negative) SARS-CoV-2, RNA, NAAT NEGATIVE (NEGATIVE) Administered Medications Discontinued Medications Amoxicillin/Clavulanate Potassium (Amoxicillin/Clavulanate 875 Mg Tab) 1 tab PO NOW ONE Stop: 02/24/22 11:12 Last Admin: 02/24/22 11:41 Dose: 1 tab Documented by: [id number] Hydrochlorothiazide (Hydrochlorothiazide 25 Mg Tab) 25 mg PO NOW STA Stop: 02/24/22 11:12 Last Admin: 02/24/22 11:41 Dose: 25 mg Documented by: [id number] Sodium Chloride (Nss) 500 mls @ 999 mls/hr IV .Q31M ONE Stop: 02/24/22 09:05 Last Infusion: 02/24/22 09:43 Dose: 0 mls/hr Documented by: [id number] Admin: 02/24/22 09:08 Dose: 999 mls/hr Documented by: [id number] Lorazepam (Lorazepam 2 Mg/1 Ml Vial) 0.5 mg IV NOW STA Stop: 02/24/22 08:35 Last Admin: 02/24/22 09:09 Dose: 0.5 mg Documented by: [id number] Imaging Data Radiologist's Impression: Chest X-Ray 02/24/22 08:22 SINGLE VIEW CHEST CLINICAL HISTORY: Dizziness FINDINGS: An AP, portable, upright chest radiograph is compared to study dated 02/22/2022. The heart is enlarged noting atherosclerotic calcification of the thoracic aorta. The pulmonary vasculature is noncongested. Chronic interstitial thickening is similar to previous. Scarring/atelectasis is noted at the lung bases. The lungs and pleural spaces are otherwise clear. No pneumothorax is seen. The skeletal structures are osteopenic. The bony thorax is grossly intact. IMPRESSION: Cardiomegaly with no acute cardiopulmonary abnormality. ACT 112: Negative or not required by law. Electronically signed by: Edwin Rojas M.D. 02/24/2022 9:[address] 02/24/22 08:22 CT head/brain wo con CLINICAL HISTORY: dizzy COMPARISON STUDY: MR of the brain from 02/22/2022 CT DOSE: 687.98 mGy.cm TECHNIQUE: Standard CT of the Brain was performed without IV contrast. A dose lowering technique was utilized adhering to the principles of ALARA. FINDINGS: Extraaxial space: There is no evidence for subdural hematoma. There are no extra-axial fluid collections. Ventricles and cisterns: The ventricles are normal in size and configuration. There is no evidence for midline shift or mass effect. Parenchyma: There is no subarachnoid or intraparenchymal hemorrhage. There is no evidence for an acute infarct or cerebral edema. There is evidence for old right cerebellar infarct again seen. There is homogeneous attenuation of the brain parenchyma. There is again an arachnoid cyst present involving the middle cranial fossa. There are no gross mass lesions. Osseous structures: There is no evidence for an acute fracture. The visualized paranasal sinuses are clear. There is mild asymmetric mucosal thickening involving the mastoid air cells on the right when compared to the left characteristic of mild chronic mastoiditis. Soft tissues: There is no evidence for focal soft tissue swelling. IMPRESSION: 1. No acute intracerebral pathology. 2. Old right cerebellar infarct is again seen. 3. Mild chronic right mastoiditis. This can also be seen on the patient's MRI. ACT 112: Negative or not required by law. Electronically signed by: Derik Bean M.D. 02/24/2022 9:28 AM Discharge Plan Visit Data Chief Complaint: Dizziness ED Provider: Philip Larsen Discharge Problem: Dizziness, Atrial fibrillation, Stroke due to embolism, Vomiting Discharge Instructions Interventions: ED Discharge Assessment Last Done: 02/24/22 11:56 Discharge Problem: Atrial fibrillation Qualifiers: Atrial fibrillation type: unspecified Qualified Code(s): I48.91 - Unspecified atrial fibrillation Stroke due to embolism Qualifiers: Precerebral and cerebral artery: unspecified precerebral artery Qualified Code(s): I63.10 - Cerebral infarction due to embolism of unspecified precerebral artery Vomiting Qualifiers: Vomiting type: unspecified Nausea presence: with nausea Qualified Code(s): R11.2 - Nausea with vomiting, unspecified
[2022-02-24 08:46] LABS: Hematocrit (blood only) 44.3 % (42-52); Hemoglobin 15.3 g/dL (14.0-18.0); Mean Corpuscular Hemoglobin 29.4 pg (25-34); Mean Corpuscular Hgb Conc 34.5 g/dL (32-36); Mean Platelet Volume 9.6 fL (7.4-10.4); Platelet Count 235 K/uL (130-400); RDW Coefficient of Variation 13.5 % (11.5-14.5); RDW Standard Deviation 41.9 fL (36.4-46.3); Red Blood Count 5.21 M/uL (4.7-6.1); White Blood Count 20.46 K/uL (4.8-10.8)
[2022-02-24 09:01] LABS: INR 1.1 (0.9-1.1); Prothrombin Time 12.1 Seconds (9.0-12.0)
--- NOTE | 2022-02-24 09:04 | XRay Report ---
SINGLE VIEW CHEST CLINICAL HISTORY: Dizziness FINDINGS: An AP, portable, upright chest radiograph is compared to study dated 02/22/2022. The heart i s enlarged noting atherosclerotic calcification of the thoracic aorta. The pulmonary vasculature is n oncongested. Chronic interstitial thickening is similar to previous. Scarring/atelectasis is noted at the lung bases. The lungs and pleural spaces are otherwise clear. No pneumothorax is seen. The skele tang structures are osteopenic. The bony thorax is grossly intact. IMPRESSION: Cardiomegaly with no acute cardiopulmonary abnormality. ACT 112: Negative or not required by law. Electronically signed by: Edwin Rojas M.D. 02/24/2022 9:03 AM
--- NOTE | 2022-02-24 09:32 | CT Scan Report ---
CT head/brain wo con CLINICAL HISTORY: dizzy COMPARISON STUDY: MR of the brain from 02/22/2022 CT DOSE: 687.98 mGy.cm TECHNIQUE: Standard CT of the Brain was performed without IV contrast. A dose lowering technique was utilized adhering to the principles of ALARA. FINDINGS: Extraaxial space: There is no evidence for subdural hematoma. There are no extra-axial fluid collecti ons. Ventricles and cisterns: The ventricles are normal in size and configuration. There is no evidence fo r midline shift or mass effect. Parenchyma: There is no subarachnoid or intraparenchymal hemorrhage. There is no evidence for an acut e infarct or cerebral edema. There is evidence for old right cerebellar infarct again seen. There is homogeneous attenuation of the brain parenchyma. There is again an arachnoid cyst present involving t he middle cranial fossa. There are no gross mass lesions. Osseous structures: There is no evidence for an acute fracture. The visualized paranasal sinuses are clear. There is mild asymmetric mucosal thickening involving the mastoid air cells on the right when compared to the left characteristic of mild chronic mastoiditis. Soft tissues: There is no evidence for focal soft tissue swelling. IMPRESSION: 1. No acute intracerebral pathology. 2. Old right cerebellar infarct is again seen. 3. Mild chronic right mastoiditis. This can also be seen on the patient's MRI. ACT 112: Negative or not required by law. Electronically signed by: Derik Bean M.D. 02/24/2022 9:28 AM
[2022-02-24 09:39] LABS: Troponin I High Sensitivity 4.4 pg/ml (0-20)
[2022-02-24 09:58] LABS: Basophils # (auto) 0.05 K/uL (0-0.2); Basophils % (auto) 0.2 %; Eosinophils # (auto) 0.03 K/uL (0-0.5); Eosinophils % (auto) 0.1 %; Immature Granulocytes # (auto) 0.05 K/uL (0.00-0.02); Immature Granulocytes % (auto) 0.2 %; Lymphocytes # (auto) 13.01 K/uL (1.2-3.4); Lymphocytes % (auto) 63.6 %; Monocytes # (auto) 0.35 K/uL (0.11-0.59); Monocytes % (auto) 1.7 %; Neutrophils # (auto) 6.97 K/uL (1.4-6.5); Neutrophils % (auto) 34.2 %; Smudge Cells Present
[2022-02-24 10:08] LABS: Appearance Urine Clear (Clear); Bacteria Urine Automated Negative (Negative); Bilirubin Urine Negative (Negative); Blood Urine Trace (Negative); Color Urine Yellow; Glucose Urine UA Negative (Negative); Ketones Urine Negative (Negative); Leukocyte Esterase Urine Negative (Negative); Nitrite Urine Negative (Negative); Protein Urine 2+ (Negative); RBC Urine Automated 0-4 /hpf (0-4); Specific Gravity Urine 1.022 (1.000-1.030); Urobilinogen Urine Negative (Negative); pH Urine 6.5 (4.5-7.5)
[2022-02-24 10:22] LABS: BUN Creatinine Ratio 31.4 (10-20); Calcium 9.3 mg/dl (8.5-10.1); Creatinine Clr Calc Pharmacy 99.8 ml/min; Est GFR (African American) 101.8 ml/min; Est GFR (Non-African American) 87.9 ml/min; Potassium 4.4 mmol/L (3.5-5.1)
[2022-02-24 10:23] LABS: Albumin Globulin Ratio 1.4 (0.9-2); Albumin Level 4.3 gm/dl (3.4-5.0); Globulin 3.1 gm/dl (2.5-4.0); Total Protein 7.4 gm/dl (6.0-8.3)
--- NOTE | 2022-02-24 10:35 | History & Physical Report ---
Date of Service February 24, 2022 Assessment & Plan (1) Stroke due to embolism: Plan: Chronic right cerebellar infarct- now with return of vertigoness symptoms of dizziness and vomiting - Rule out increasing infarct or change from previous with MRI - CT head negative for hemorrhage- continue with ASA and Eliquis now for CVA and Afib protection - PT/OT consult for rehab evaluation- may benefit from rehab placement until symptoms resolve or improve - Allow for permissive HTN until evaluation of MRI for new/evolving CVA - Continue statin - Will get GROUND INSTRUCTOR BASIC to see patient with review of dilated esophagus and debris from previous imaging- currently without dysarthria or dysphagia - ECHO previously completed with bubble study- negative for PFO He is normoglycemic, Urine negative for bacteruria, afebrile- will add PCT for further evaluation to r/o mimic or infectious related -remains without murmur on heart exam (2) Mild ascending aorta dilatation: Plan: Incidentally noted on previous ECHO - Serial CT scan and following as outpatient (3) Atrial fibrillation: Plan: Remains rate controlled without medication - Continue eliquis for stoke risk reduction - follow HR (4) CLL (chronic lymphocytic leukemia): Plan: History of who is on [facility] with [facility] - [place] diagnosed in 2018- STEVENSON stage 0 reported (5) Hypothyroidism: Plan: Continue synthroid no acute needs (6) Hyperlipidemia: Plan: Increased statin last admission - continue with atorvastatin 40mg po daily (7) Hypertension: Plan: HCTZ- continue - tolerate permissive HTN until evaluation of MRI (8) Diabetes mellitus: Plan: Hold Metformin - carb consistent diet with aspart sliding scale (9) Abnormal CT scan, esophagus: Plan: Dilated esophagus with note of debris on last imaging - currently without symptoms of dysphagia, facial asymmetry, or dysarthria - GROUND INSTRUCTOR BASIC consulted for swallow eval History of Present Illness Primary Care Provider: Damaso Venegas MD 71 YOM who was discharged on 02/23/22 following admission for cerebellar infarct in the setting of new onset atrial fibrillation. There was also some concern at that time for possible SBE with dental procedure preceding this as well- this was evaluated at that time with TTE. He was medically optimized with addition of Eliquis, increase in statin, aspirin - he was reportedly doing well and did well with rehab. The patient was discharged from the hospital- he reports he felt well until the evening, where he ate a sandwich and started to watch some baseball and had return of "fuzzy" vision, headache, nausea and vomiting. He endorses that he tried to then go to bed and the nausea, vomiting persisted and was associated at that time with difficulty getting balance. He is unsure if the room was spinning or not but just felt like he had to grab on things to get his balance. He is accompanied with his daughters and appreciate their assistance. Exam was completed in concert with Dr. Del Angel as he had the patient yesterday for continuity. He is with NIHSS- 0, and without visual field skew, or visual field loss, and is without nystagmus with lateral head rotation. Also unable to reproduce symptoms with movment or position change. Will admit benedict ent- obtain repeat MRI, continue with his anticoagulation as CT of the head is negative for hemorrhage. Likely will need some aggressive PT/OT with this. Overall labs unremarkable, will continue his Augmentin for his postoperative dental procedure treatment. His WBC count with smudge cells is consistent with his diagnosis of CLL, blood cultures from the remain with no growth. Past medical history with DM, HTN, HLD, Hypothyroidism, Afib. COVID test is: NEGATIVE Allergies Allergy/AdvReac Type Severity Reaction Status Date / Time scallops Allergy Intermediate severe Verified 02/24/22 09:59 nausea / vomiting SHAHEEN Inhibitors Allergy Unknown Unknown Unverified 02/24/22 09:59 Home Medications Medication Instructions Recorded Confirmed Type hydrochlorothiazide 25 mg tablet 25 mg PO QAM 06/28/19 02/24/22 History metformin 500 mg tablet 500 mg PO BIDM 06/28/19 02/24/22 History levothyroxine 75 mcg tablet 75 mcg PO DAILYBB 07/19/19 02/24/22 History aspirin 81 mg tablet,delayed 81 mg PO QAM 02/18/21 02/24/22 History release amoxicillin 875 mg tablet 875 mg PO BID 02/22/22 02/24/22 History apixaban 5 mg tablet 5 mg PO BID #60 tab 02/23/22 02/24/22 Rx atorvastatin 40 mg tablet 40 mg PO HS #30 tab 02/23/22 02/24/22 Rx Past Med/Surg History Medical History (Updated 02/24/22 @ 13:42 by Philip Larsen DO) Arthritis Diabetes mellitus, type 2 Hepatitis per patient in 1969's had hepatitis - "worked in [employer]"- took medication Hyperlipidemia Hypertension Hypothyroidism 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 BROOKS-DX'D 2016 Surgical History History of arthroscopy R/L KNEE History of bowel resection FOR PERFORATED DIVERTICULITIS History of herniorrhaphy Family History Mother Family history of diabetes mellitus Other Colorectal cancer Denies family history of Ovarian cancer Prostate cancer Myocardial infarction Breast cancer Social History Smoking Status: Current every day smoker Tobacco Type: Pipe and Smokeless Tobacco (Dip or Chew) Cigarettes Per Day: PIPE 1 X A DAY X MANY YRS; Second Hand Exposure: Yes (SPOUSE SMOKES); Hx Alcohol Use: Yes Alcohol type: beer and hard liquor Alcohol Intake Frequency: 2-4 x/Month Hx Substance Use: No Preferred Language: Yoruba Communication Ability: Effective Visual Impairment: No Limitations Hearing Ability: Use of Hearing Aid Product Responsibility Liaison Required: No Beliefs That Will Affect Care: None marital status: Current Living Situation: Spouse current occupational status: employed and retired 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[employer], 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, was in [employer], works at [employer] now Feels Safe at Home: No Safety Concerns: Feels Safe At This Time Childhood Exposure to Second-Hand Smoke: Yes Dental Care, Regularly: Yes Physical Activity Frequency: Daily Seatbelt Use: always Sunscreen Use: Yes Assistive Devices: Glasses and Hearing Aid - Bilateral Assistive Devices Comment: patial on bottom Review of Systems Review of Systems: REVIEW OF SYSTEMS: Constitutional: No fever, sweats or chills Eyes: (+) blurred vision, No diplopia, no worsening or blurred vision ENT: (+) difficulty hearing, no trouble swallowing Respiratory: No cough, sputum, dyspnea at rest or on exertion Cardiovascular: No chest pain, tightness or palpitations Abdomen: (+) nausea/vomitting, No pain, diarrhea or constipation Musculoskeletal: NO joint pain, calf pain, swelling Neurologic: (+) dizziness, fuzzy vision, off balance, No weakness, numbness/tingling Psychiatric: No anxiety or depression Skin: No rash or itch Physical Exam Physical Exam: PHYSICAL EXAM: General: He is drowsy at this time, but is able to participate in full exam- did not sleep last night- but follow Head: Normocephalic, atraumatic ENT: PERRLA, EOMI, no visual field loss, reading intact, without nystagmus or visual skew, no pharyngeal exudate, mucous membranes moist Neuro: AAO x 3, speech clear and appropriate, strength intact bilaterally 5/5, sensation intact and equal all extremities and dermatomes, no pronator drift, no overshoot with finger to nose- NIHSS 0 Chest: equal rise and fall of the chest, no accessory muscle use, no heaves or thrills, Clear to auscultation, on room air, Cardiac: Regular rate and rhythm, telemetry reviewed, skin warm dry, cap refill <3 seconds, peripheral pulses +2 no JVD, no murmur, no edema GI: NABS x 4 quadrants, soft, nontender to palpation, no rebound, guarding or tenderness : Spontaneously voiding, no pain, no CVA tenderness, Extremities: Normal inspection, no peripheral edema or erythema, calfs nontender to palpation Psych: Normal mood and affect Skin: no rash or erythema Results & Data Results & Data ([facility]) Vital Signs (Past 12 Hours) Vital Signs Temp Pulse Pulse Resp BP BP Pulse Ox 02/24/22 09:36 62 20 168/103 H 94 02/24/22 08:30 66 18 165/116 H 96 02/24/22 08:22 97 02/24/22 08:20 36.4 C L 76 16 168/108 H 96 Laboratory Results Abnormal lab results 02/24/22 02/24/22 02/24/22 Range/Units 08:28 08:28 08:28 WBC 20.46 H (4.8-10.8) K/uL Neut # (Auto) 6.97 H (1.4-6.5) K/uL Lymph # (Auto) 13.01 H (1.2-3.4) K/uL Immature Gran # (Auto) 0.05 H (0.00-0.02) K/uL PT 12.1 H (9.0-12.0) Seconds Sodium 135 L (136-145) mmol/L BUN 27 H (6-23) mg/dl BUN/Creatinine Ratio 31.4 H (10-20) Glucose 169 H (70-99(Fasting)) mg/dl Urine Protein (Negative) Urine Blood (Negative) U Epithel Cells (Auto) (0-5) /lpf 02/24/22 Range/Units 09:50 WBC (4.8-10.8) K/uL Neut # (Auto) (1.4-6.5) K/uL Lymph # (Auto) (1.2-3.4) K/uL Immature Gran # (Auto) (0.00-0.02) K/uL PT (9.0-12.0) Seconds Sodium (136-145) mmol/L BUN (6-23) mg/dl BUN/Creatinine Ratio (10-20) Glucose (70-99(Fasting)) mg/dl Urine Protein 2+ H (Negative) Urine Blood Trace H (Negative) U Epithel Cells (Auto) 10-20 H (0-5) /lpf Diagnostic Findings Chest X-Ray 02/24/22 08:22 SINGLE VIEW CHEST CLINICAL HISTORY: Dizziness FINDINGS: An AP, portable, upright chest radiograph is compared to study dated 02/22/2022. The heart is enlarged noting atherosclerotic calcification of the thoracic aorta. The pulmonary vasculature is noncongested. Chronic interstitial thickening is similar to previous. Scarring/atelectasis is noted at the lung bases. The lungs and pleural spaces are otherwise clear. No pneumothorax is seen. The skeletal structures are osteopenic. The bony thorax is grossly intact. IMPRESSION: Cardiomegaly with no acute cardiopulmonary abnormality. ACT 112: Negative or not required by law. Electronically signed by: Edwin Rojas M.D. 02/24/2022 9:[address] 02/24/22 08:22 CT head/brain wo con CLINICAL HISTORY: dizzy COMPARISON STUDY: MR of the brain from 02/22/2022 CT DOSE: 687.98 mGy.cm TECHNIQUE: Standard CT of the Brain was performed without IV contrast. A dose lowering technique was utilized adhering to the principles of ALARA. FINDINGS: Extraaxial space: There is no evidence for subdural hematoma. There are no extra-axial fluid collections. Ventricles and cisterns: The ventricles are normal in size and configuration. There is no evidence for midline shift or mass effect. Parenchyma: There is no subarachnoid or intraparenchymal hemorrhage. There is no evidence for an acute infarct or cerebral edema. There is evidence for old right cerebellar infarct again seen. There is homogeneous attenuation of the brain p arenchyma. There is again an arachnoid cyst present involving the middle cranial fossa. There are no gross mass lesions. Osseous structures: There is no evidence for an acute fracture. The visualized paranasal sinuses are clear. There is mild asymmetric mucosal thickening involving the mastoid air cells on the right when compared to the left characteristic of mild chronic mastoiditis. Soft tissues: There is no evidence for focal soft tissue swelling. IMPRESSION: 1. No acute intracerebral pathology. 2. Old right cerebellar infarct is again seen. 3. Mild chronic right mastoiditis. This can also be seen on the patient's MRI. ACT 112: Negative or not required by law. Electronically signed by: Derik Bean M.D. 02/24/2022 9:28 AM Medications Administered Home Medications hydrochlorothiazide 25 mg tablet 25 mg PO QAM 06/28/19 [History Confirmed 02/24/22] metformin 500 mg tablet 500 mg PO BIDM 06/28/19 [History Confirmed 02/24/22] levothyroxine 75 mcg tablet 75 mcg PO DAILYBB 07/19/19 [History Confirmed 02/24/22] aspirin 81 mg tablet,delayed release 81 mg PO QAM 02/18/21 [History Confirmed 02/24/22] amoxicillin 875 mg tablet 875 mg PO BID 02/22/22 [History Confirmed 02/24/22] apixaban 5 mg tablet 5 mg PO BID #60 tab 02/23/22 [Rx Confirmed 02/24/22] atorvastatin 40 mg tablet 40 mg PO HS #30 tab 02/23/22 [Rx Confirmed 02/24/22] Discontinued Medications Sodium Chloride (Nss) 500 mls @ 999 mls/hr IV .Q31M ONE Stop: 02/24/22 09:05 Last Infusion: 02/24/22 09:43 Dose: 0 mls/hr Documented by: [id number] Admin: 02/24/22 09:08 Dose: 999 mls/hr Documented by: [id number] Lorazepam (Lorazepam 2 Mg/1 Ml Vial) 0.5 mg IV NOW STA Stop: 02/24/22 08:35 Last Admin: 02/24/22 09:09 Dose: 0.5 mg Documented by: [id number] ECG Additional Comments: Atrial fibrillation Cannot rule out Anterior infarct , age undetermined Abnormal ECG When compared with ECG of 22-FEB-2022 23:05, No significant change was found Code Status & VTE Plan Code Status CODE: FULL VTE: Judi HAYWARD VTE Prophylaxis Plan VTE Prophylaxis will be ordered: Yes Supervising Physician Co-Signing Physician Notes I supervised MARII Estrada on this admission. I interviewed and examined the patient independently of him. The plan is as written in his note except for any following changes/exceptions: None Recurrent episode of dizziness. MRI now with a new CVA. Have reached out to neurology and cardiology, but possible some residual AMA clot? PG Care Time/CCT Total # of Minutes Spent Total Time Spent with Patient: Total time spent is greater than 50% in coordination of care (as documented) at patient's floor/unit and/or counseling patient: Coding Level of Care Code 69639 Initial Inpt Care Lvl 3 Diagnoses Stroke due to embolism I63.9 Mild ascending aorta dilatation I77.810 Atrial fibrillation I48.91 Atrial fibrillation type: unspecified CLL (chronic lymphocytic leukemia) C91.10 Hypothyroidism E03.9 Hyperlipidemia E78.5 Hypertension I10 Diabetes mellitus E11.[address] scan, esophagus R93.3 (1) Atrial fibrillation Atrial fibrillation type: unspecified Qualified Code(s): I48.91 - Unspecified atrial fibrillation
[2022-02-24] MEDS ORDERED: AMOXICILLIN/CLAVULANATE 875 MG TAB PO ONE (11:11)
[2022-02-24] MEDS ORDERED: hydroCHLOROthiazide 25 MG TAB PO STA (11:11)
[2022-02-24] MEDS ORDERED: ONDANSETRON INJ 2 MG/ML 2 ML VIAL IV PRN (12:17)
[2022-02-24] MEDS ORDERED: CARBOHYDRATES FOR HYPOGLYCEMIA PO PRN (12:17)
[2022-02-24] MEDS ORDERED: ACETAMINOPHEN 325 MG TAB PO PRN (12:17)
[2022-02-24] MEDS ORDERED: GLUCOSE 10 TABS/TUBE PO PRN (12:17)
[2022-02-24] MEDS ORDERED: DEXTROSE 50% 50 ML SYRINGE IV PRN (12:17)
[2022-02-24] MEDS ORDERED: GLUCOSE 40% GEL 15 GM TUBE PO PRN (12:17)
[2022-02-24] MEDS ORDERED: GLUCAGON FOR INJ 1 MG VIAL SQ PRN (12:17)
--- NOTE | 2022-02-24 15:20 | Magnetic Resonance Report ---
MR brain wo con CLINICAL HISTORY: Continued dizziness. Evaluate for CVA. COMPARISON STUDY: 02/22/2022 TECHNIQUE: Multiplanar multisequence images of the Brain were performed without IV contrast. Diffusi on weighted imaging and ADC mapping was also performed. FINDINGS: Extra-axial space: There is no evidence for a subdural hematoma, There are no extra-axial fluid carlitos ections. Ventricles and cisterns: The ventricles are normal in size and configuration. There is no evidence f or midline shift or mass effect. Parenchyma: Compared to the previous examination, there is now an acute focus of increased signal wit hin the right cerebellar hemisphere adjacent to the previous old infarct. This is seen on axial image 8. Acute diffusion abnormalities are seen at this site. Persistent hyperintense focus is also seen i n the posterior right temporal lobe on axial image 11. No other evidence for acute infarct is seen. There is no definite evidence for hemorrhage. There is a gain evidence for old right cerebellar infarct. There is again evidence for arachnoid cyst within the middle cranial fossa anteriorly. There is otherwise normal peñaloza-white differentiation. The sulci and gyri appear normal without efface ment. The midline structures are unremarkable. The remaining posterior fossa structures appear normal . There is no evidence for mass lesion. Osseous structures: The paranasal sinuses are well aerated. The mastoid air cells are well aerated. Soft tissues: No focal soft tissue abnormalities are identified. IMPRESSION: 1. Compared to the previous MR, a new focus of increased signal is seen within the right cerebellar h emisphere adjacent to old previous right cerebellar infarct. This is characteristic of a small acute infarct. 2. Persistent hyperintense focus is also seen within the posterior right temporal lobe when compared to the previous study. 3. Old right cerebellar infarct is again seen along with arachnoid cysts of the medial cranial fossa. ACT 112: Negative or not required by law. Electronically signed by: Derik Bean M.D. 02/24/2022 3:19 PM
[2022-02-24] MEDS: INSULIN ASPART PER UNIT SC SCH ×2 (17:51→21:12)
--- NOTE | 2022-02-24 18:13 | Electrocardiogram Report ---
Test Reason : Blood Pressure : / mmHG Vent. Rate : 069 BPM Atrial Rate : 044 BPM P-R Int : 000 ms QRS Dur : 110 ms QT Int : 412 ms P-R-T Axes : 000 -16 030 degrees QTc Int : 441 ms Atrial fibrillation Abnormal ECG When compared with ECG of 22-FEB-2022 23:05, No significant change was found Confirmed by Damaso Licea ([id number]) on 02/24/2022 6:12:51 PM Referred By: Confirmed By:Satish Licea
[2022-02-24] MEDS: APIXABAN 5 MG TABLET PO SCH (21:13)
[2022-02-24] MEDS: ATORVASTATIN 40 MG TAB PO SCH (21:14)
[2022-02-25 01:16] LABS: Lyme Ab IgG w/WB Rflx Negative (Negative); Lyme Ab IgM w/WB Rflx Negative (Negative)
[2022-02-25 01:21] LABS: BUN Creatinine Ratio 28.9 (10-20); Creatinine Clr Calc Pharmacy 101.5 ml/min; Est GFR (African American) 103.3 ml/min; Est GFR (Non-African American) 89.2 ml/min; Magnesium 1.9 mg/dl (1.7-2.4); Potassium 3.8 mmol/L (3.5-5.1)
[2022-02-25 07:28] LABS: Hematocrit (blood only) 42.3 % (42-52); Hemoglobin 14.4 g/dL (14.0-18.0); Mean Corpuscular Hemoglobin 28.9 pg (25-34); Mean Corpuscular Volume 84.9 fL (80-100); Mean Platelet Volume 9.3 fL (7.4-10.4); Platelet Count 229 K/uL (130-400); RDW Coefficient of Variation 13.3 % (11.5-14.5); RDW Standard Deviation 40.6 fL (36.4-46.3); Red Blood Count 4.98 M/uL (4.7-6.1); White Blood Count 19.27 K/uL (4.8-10.8)
[2022-02-25 07:53] LABS: Basophils # (auto) 0.07 K/uL (0-0.2); Basophils % (auto) 0.4 %; Eosinophils % (auto) 0.5 %; Immature Granulocytes # (auto) 0.04 K/uL (0.00-0.02); Immature Granulocytes % (auto) 0.2 %; Lymphocytes # (auto) 11.43 K/uL (1.2-3.4); Lymphocytes % (auto) 59.3 %; Monocytes # (auto) 0.67 K/uL (0.11-0.59); Monocytes % (auto) 3.5 %; Neutrophils # (auto) 6.96 K/uL (1.4-6.5); Neutrophils % (auto) 36.1 %; Smudge Cells Present
[2022-02-25 08:10] LABS: BUN Creatinine Ratio 26.7 (10-20); Calcium 9.2 mg/dl (8.5-10.1); Creatinine Clr Calc Pharmacy 92.2 ml/min; Est GFR (African American) 99.9 ml/min; Est GFR (Non-African American) 86.2 ml/min; Magnesium 1.9 mg/dl (1.7-2.4); Potassium 4.2 mmol/L (3.5-5.1)
[2022-02-25] MEDS: LEVOTHYROXINE SODIUM 75 MCG TABLET PO SCH (08:10)
[2022-02-25] MEDS: ASPIRIN 81 MG ECTAB PO SCH (08:11)
[2022-02-25] MEDS: APIXABAN 5 MG TABLET PO SCH ×2 (08:12→20:30)
[2022-02-25] MEDS: hydroCHLOROthiazide 25 MG TAB PO SCH (08:12)
[2022-02-25] MEDS: INSULIN ASPART PER UNIT SC SCH ×4 (08:28→20:35)
--- NOTE | 2022-02-25 12:42 | Hospitalist Progress Note ---
Date of Service February 25, 2022 Assessment & Plan (1) Stroke due to embolism: Plan: Chronic right cerebellar infarct- now with return of vertigoness symptoms of dizziness and vomiting - Rule out increasing infarct or change from previous with MRI - CT head negative for hemorrhage- continue with ASA and Eliquis now for CVA and Afib protection - PT/OT consult for rehab evaluation- may benefit from rehab placement until symptoms resolve or improve - Allow for permissive HTN until evaluation of MRI for new/evolving CVA - Continue statin - ECHO previously completed with bubble study- negative for PFO - Presume this is another small embolic stroke from remaining clot burden from his afib. He was only on anticoagulation for <24 hours. However, Dr. Shields has continued concern for endocarditis, so tentative plan for MICHAEL on Monday. Repeat blood cultures sent. (2) Mild ascending aorta dilatation: Plan: Incidentally noted on previous ECHO - Serial CT scan and following as outpatient (3) Atrial fibrillation: Plan: Remains rate controlled without medication. Has some pauses overnight, but no present need. - Continue Eliquis for stoke risk reduction - follow HR (4) CLL (chronic lymphocytic leukemia): Plan: History of who is on surveillance with [facility] [place] diagnosed in 2018- STEVENSON stage 0 reported (5) Hypothyroidism: Plan: Continue synthroid no acute needs (6) Hyperlipidemia: Plan: Increased statin last admission - continue with atorvastatin 40mg po daily (7) Hypertension: Plan: HCTZ- continue - tolerate permissive HTN until evaluation of MRI (8) Diabetes mellitus: Plan: Hold Metformin - carb consistent diet with aspart sliding scale (9) Abnormal CT scan, esophagus: Plan: Dilated esophagus with note of debris on last imaging - currently without symptoms of dysphagia, facial asymmetry, or dysarthria - NEMATOLOGY TEACHER consulted for swallow eval Admission and Anticipated Discharge Date Admission Date: February 24, 2022 Subjective Still with some dizziness. Reports no fevers/chills, chest pain, shortness of breath, abdominal pain, nausea, or vomiting. Physical Exam Constitutional: WD/WN, vitals as above Eyes: EOM intact bilaterally; no conjunctival abnormality ENMT: external ear and nose normal, oropharynx normal Neck: trachea midline, no thyromegaly normal visual inspection Respiratory: normal respiratory effort, lungs clear to auscultation no respiratory distress Cardiovascular: RRR, no murmur, no edema Gastrointestinal (Abdomen): Inspection/Auscultation: abdomen normal to inspection; abdomen not distended Musculoskeletal: no cyanosis or clubbing, extremities motor strength 5/5 Skin: no rashes, warm and dry Neurologic: moves all extremities and awake Psychiatric: Orientation: alert, oriented to person and cooperative Results & Data Results & Data ([facility]) Vital Signs (Past 12 Hours) Vital Signs Temp Pulse Pulse Resp BP BP Pulse Ox 02/25/22 11:02 36.5 C 69 18 145/76 H 94 02/25/22 07:41 36.5 C 70 16 168/94 H 97 02/25/22 07:35 65 02/25/22 03:19 36.5 C 52 L 18 151/89 H 97 02/25/22 02:03 66 PG Care Time/CCT Total # of Minutes Spent Total Time Spent with Patient: Total time spent is greater than 50% in coordination of care (as documented) at patient's floor/unit and/or counseling patient: Coding Level of Care Code 70027 Subseq Hosp Care Lvl 2 Diagnoses Stroke due to embolism I63.10 Precerebral and cerebral artery: unspecified precerebral artery Mild ascending aorta dilatation I77.810 Atrial fibrillation I48.91 Atrial fibrillation type: unspecified CLL (chronic lymphocytic leukemia) C91.10 Hypothyroidism E03.9 Hyperlipidemia E78.5 Hypertension I10 Diabetes mellitus E11.[address] scan, esophagus R93.3 (1) Stroke due to embolism Precerebral and cerebral artery: unspecified precerebral artery Qualified Code(s): I63.10 - Cerebral infarction due to embolism of unspecified precerebral artery (2) Atrial fibrillation Atrial fibrillation type: unspecified Qualified Code(s): I48.91 - Unspecified atrial fibrillation
[2022-02-25] MEDS: MECLIZINE HCL 25 MG TAB PO PRN (13:23)
--- NOTE | 2022-02-25 18:09 | Electrocardiogram Report ---
Test Reason : Blood Pressure : / mmHG Vent. Rate : 063 BPM Atrial Rate : 076 BPM P-R Int : 000 ms QRS Dur : 112 ms QT Int : 464 ms P-R-T Axes : 000 050 007 degrees QTc Int : 474 ms Atrial fibrillation with premature ventricular or aberrantly conducted complexes Abnormal ECG When compared with ECG of 24-FEB-2022 08:26, No significant change was found Confirmed by Damaso Licea ([id number]) on 02/25/2022 6:09:26 PM Referred By: REFERRED SELF Confirmed By:Satish Licea
[2022-02-25] MEDS: ATORVASTATIN 40 MG TAB PO SCH (20:30)
[2022-02-26] MEDS: LEVOTHYROXINE SODIUM 75 MCG TABLET PO SCH (06:10)
[2022-02-26 07:58] LABS: Hematocrit (blood only) 43.4 % (42-52); Hemoglobin 14.9 g/dL (14.0-18.0); Mean Corpuscular Hemoglobin 28.9 pg (25-34); Mean Corpuscular Hgb Conc 34.3 g/dL (32-36); Mean Corpuscular Volume 84.3 fL (80-100); Mean Platelet Volume 9.6 fL (7.4-10.4); Platelet Count 264 K/uL (130-400); RDW Coefficient of Variation 13.4 % (11.5-14.5); RDW Standard Deviation 40.9 fL (36.4-46.3); Red Blood Count 5.15 M/uL (4.7-6.1); White Blood Count 18.12 K/uL (4.8-10.8)
[2022-02-26] MEDS: ASPIRIN 81 MG ECTAB PO SCH (08:19)
[2022-02-26] MEDS: hydroCHLOROthiazide 25 MG TAB PO SCH (08:19)
[2022-02-26] MEDS: APIXABAN 5 MG TABLET PO SCH ×2 (08:19→20:12)
[2022-02-26] MEDS: MECLIZINE HCL 25 MG TAB PO PRN (08:19)
[2022-02-26] MEDS: INSULIN ASPART PER UNIT SC SCH ×4 (08:25→22:09)
[2022-02-26 08:26] LABS: BUN Creatinine Ratio 25.6 (10-20); Calcium 9.1 mg/dl (8.5-10.1); Creatinine Clr Calc Pharmacy 91.8 ml/min; Est GFR (African American) 99.9 ml/min; Est GFR (Non-African American) 86.2 ml/min; Magnesium 1.8 mg/dl (1.7-2.4); Potassium 3.7 mmol/L (3.5-5.1)
[2022-02-26 08:36] LABS: Basophils # (auto) 0.05 K/uL (0-0.2); Basophils % (auto) 0.3 %; Eosinophils # (auto) 0.13 K/uL (0-0.5); Eosinophils % (auto) 0.7 %; Immature Granulocytes # (auto) 0.04 K/uL (0.00-0.02); Immature Granulocytes % (auto) 0.2 %; Lymphocytes # (auto) 11.56 K/uL (1.2-3.4); Lymphocytes % (auto) 63.8 %; Monocytes # (auto) 0.46 K/uL (0.11-0.59); Monocytes % (auto) 2.5 %; Neutrophils # (auto) 5.88 K/uL (1.4-6.5); Neutrophils % (auto) 32.5 %; Smudge Cells Present
--- NOTE | 2022-02-26 10:21 | Neurology Consultation ---
Date of Consultation February 26, 2022 Assessment & Plan (1) Stroke due to embolism: 71-year-old male with new onset atrial fibrillation, presenting with recurrent dizziness, now with evidence of a small acute right cerebellar infarct, adjacent to a previously identified chronic right cerebellar infarct on MRI. He is not ataxic and does not have other signs on examination that would otherwise suggest a new or subacute infarct. His dizziness is not positional and I suspect that it is related to his recent posterior circulation infarct, although quite small. I suspect he has been experiencing recurrent cardioembolic stroke in the context of atrial fibrillation. (It is notable that there was no evidence of acute stroke on his previous brain MRI done February 22 although he did have a chronic appearing right cerebellar infarct at that time.) Other stroke risk factor for this patient include hyperlipidemia, hypertension, and diabetes mellitus. I do not believe the recently discovered small acute right cerebellar infarct will significantly change his long-term management. He should continue with apixaban and daily low-dose aspirin. However, I think pursuing a transesophageal echocardiogram is reasonable, especially in light of his history of recent dental infection, to further exclude SBE, although likelihood probably low given negative previous blood cultures. The MICHAEL has already been ordered. Furthermore, given that there is no evidence of an acute small right cerebellar infarct, adjacent to the chronic, larger, right cerebellar infarct, I think it would be reasonable to obtain a repeat CT angiogram of the head and neck to reassess his posterior circulation and exclude interval development of right vertebral or a right cerebellar artery occlusion, possibly right anterior inferior cerebellar artery based on location of identified infarct although a right posterior inferior cerebellar artery infarct is not excluded. Continue with Eliquis, aspirin, and atorvastatin as ordered. Continue medical management of hypertension, permissive hypertension appropriate at this time, systolic blood pressure goal 140 to 160 mmHg. History of Present Illness Reason for Consultation: Stroke Requesting Physician: Christine Olivier MD Attending Physician: Christine Olivier MD History of Present Illness The patient is a 71-year old male who has been admitted to the [facility] from February 22 through February 23 for evaluation and management of dizziness, new onset atrial fibrillation, and a chronic right cerebellar infarct. Please refer to my neurology consult from February 22, 2022 for details at that time. He was seen by cardiology at that time as well and has several stroke risk factors including atrial fibrillation, obesity, and hypertension. His echocardiogram did reveal left atrial dilation. History also notable for CLL. Systemic anticoagulation was recommended and he was discharged on apixaban. [facility], presenting with an exacerbation of his dizziness, with associated emesis. The symptoms have largely improved. He denies experiencing any associated diplopia, vision loss, change in speech or swallowing, focal weakness, sensory loss, or headache. A new acute, punctate right cerebellar i nfarct was identified on a follow-up MRI and he was readmitted to the hospital for further evaluation and management. Neurology has been reconsulted to assist in managing his case. His past medical history is also notable for a dental infection for which she had been taking amoxicillin. No evidence of endocarditis on previous echocardiography and previous blood cultures have been unremarkable. I had discussed his case with Dr. Del Angel yesterday and has suggested obtaining a transesophageal echocardiogram to further exclude endocarditis and reassess for any thrombus that may have been missed on the first echocardiogram. His Eliquis has been continued as well as daily low-dose aspirin. I also note that his previous CT angiography of the head and neck did not reveal any significant vascular lesion. There is some calcified plaque in both carotid bulbs. The left vertebral artery is dominant. Allergies Allergy/AdvReac Type Severity Reaction Status Date / Time scallops Allergy Intermediate severe Verified 02/24/22 09:59 nausea / vomiting SHAHEEN Inhibitors Allergy Unknown Unknown Unverified 02/24/22 09:59 Home Medications Medication Instructions Recorded Confirmed Type hydrochlorothiazide 25 mg tablet 25 mg PO QAM 06/28/19 02/24/22 History metformin 500 mg tablet 500 mg PO BIDM 06/28/19 02/24/22 History levothyroxine 75 mcg tablet 75 mcg PO DAILYBB 07/19/19 02/24/22 History aspirin 81 mg tablet,delayed 81 mg PO QAM 02/18/21 02/24/22 History release amoxicillin 875 mg tablet 875 mg PO BID 02/22/22 02/24/22 History apixaban 5 mg tablet 5 mg PO BID #60 tab 02/23/22 02/24/22 Rx atorvastatin 40 mg tablet 40 mg PO HS #30 tab 02/23/22 02/24/22 Rx Patient History Medical History (Updated 02/24/22 @ 13:42 by Philip Larsen DO) Arthritis Diabetes mellitus, type 2 Hepatitis per patient in 1969's had hepatitis - "worked in [employer]"- took medication Hyperlipidemia Hypertension Hypothyroidism 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 BROOKS-DX'D 2016 Surgical History History of arthroscopy R/L KNEE History of bowel resection FOR PERFORATED DIVERTICULITIS History of herniorrhaphy Family History Mother Family history of diabetes mellitus Other Colorectal cancer Denies family history of Ovarian cancer Prostate cancer Myocardial infarction Breast cancer Social History Smoking Status: Current every day smoker Tobacco Type: Pipe and Smokeless Tobacco (Dip or Chew) Cigarettes Per Day: PIPE 1 X A DAY X MANY YRS; Second Hand Exposure: Yes (SPOUSE SMOKES); Hx Alcohol Use: Yes Alcohol type: beer and hard liquor Alcohol Intake Frequency: 2-4 x/Month Hx Substance Use: No Preferred Language: Kyrgyz Communication Ability: Effective Visual Impairment: No Limitations Hearing Ability: Use of Hearing Aid Product Introduction Manager Required: No Beliefs That Will Affect Care: None marital status: Current Living Situation: Spouse current occupational status: employed and retired 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[employer], 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, was in [facility], works at [employer] now Feels Safe at Home: Yes Safety Concerns: Feels Safe At This Time Childhood Exposure to Second-Hand Smoke: Yes Dental Care, Regularly: Yes Physical Activity Frequency: Daily Seatbelt Use: always Sunscreen Use: Yes Assistive Devices: Cane and Walker Assistive Devices Comment: patial on bottom Review of Systems Constitutional: no fever and no chills Eyes: no blind spots and no diplopia Ear, Nose, Mouth, Throat: no ear pain and no hearing loss Respiratory: no cough and no dyspnea Cardiovascular: no chest pain and no palpitations Gastrointestinal: no constipation and no diarrhea/loose stools Genitourinary: no urinary incontinence or no urinary urgency Musculoskeletal: no muscle weakness and no muscle atrophy Integumentary: no rash and no lesions Neurologic: as per Subjective / HPI Psychiatric: no behavioral changes, no depression, no abnormal sleep pattern and no anxiety Hematologic / Lymphatic: no easy bruising and no lymphadenopathy Exam (Neuro) Constitutional: well developed and well nourished; no acute distress Eyes: normal visual simons by confrontation, PERRL, normal accommodation and EOM intact bilaterally; no fundoscopic abnormality, no nystagmus and no papilledema Cardiovascular: Vessels: normal carotid upstroke; no carotid bruit Neurologic: Oriented to:: Person, Place and Time Memory: Short Term Intact and Remote Intact Attention: Span Intact and Concentration Intact Language: Naming Objects and Repeating Phrases Speech Fluency: negative Dysarthria Speech Aphasia: negative Aphasia Fund of Knowledge: Current Events, Past History and Vocabulary Cranial Nerves: Normal II (Visual simons full to confrontation, visual acuity normal), III, IV, (Pupils equal round reactive to light and accommodation, eye movements normal), V (Facial sensation intact), VII (There is no facial droop or weakness), VIII (Hearing intact), IX, X (Palate elevates to midline), XI (Shoulder shrug intact) and XII (Tongue protrudes to midline) Motor Strength: Normal Lower Extremities and Normal Upper Extremities; negative Pronator Drift Motor Tone: Normal Lower Extremities and Normal Upper Extremities Muscle Bulk/Involuntary Movements: No Involuntary Movements; negative Muscle Atrophy Sensation: Light Touch Intact, Pain/Temperature Intact, Vibration Intact and Proprioception Intact Coordination: Normal; negative Limited Balance, Dysdiadochokinesia, Finger-Nose Abnormal or Heel-Higginbotham Abnormal Deep Tendon Reflexes: Rt Triceps: 2+, Lt Triceps: 2+, Rt Biceps: 2+, Lt Biceps: 2+, Rt Brachioradialis: 2+, Lt Brachioradialis: 2+, Rt Patellar: 2+, Lt Patellar: 2+, Rt Ankle: 2+ and Lt Ankle: 2+ Special Tests: negative Babinski Present Gait: Normal Station and Gait Details: Patient does have limited range of motion of the left knee due to a previous arthroplasty. Results & Data ([facility]) Vital Signs (Past 12 Hours) Vital Signs Temp Pulse Resp BP Pulse Ox 02/26/22 07:28 36.7 C 65 19 160/97 H 93 02/26/22 03:23 36.8 C 68 18 151/94 H 94 02/25/22 22:59 36.9 C 59 L 18 155/86 H 97 Laboratory Results WBC 18.12, hemoglobin 14.9, hematocrit 43.4, platelet count 264, sodium 131, potassium 3.7, BUN 23, creatinine 0.90, glucose 123, magnesium 1.8, triglycerides 70, cholesterol 98, LDL 60, VLDL 14, HDL 24. Blood cultures from February 22 show no growth. Another set of cultures was sent yesterday. Diagnostic Findings A CT of the head completed February 24, 2022 was negative for acute pathology, the old right cerebellar infarct was again appreciated. A repeat brain MRI was comp leted February 24, 2022 and revealed a new focus of punctate restricted diffusion adjacent to the old right cerebellar infarct. This finding is consistent with a small acute infarct. There is a persistent hyperintense focus within the right temporal lobe, possibly a prominent vascular structure as described previously. There is a chronic arachnoid cyst within the right middle cranial fossa as well, also identified previously. I independently reviewed these images and was able to appreciate the above findings as observed by the interpreting radiologist. An electrocardiogram completed February 24 had revealed atrial fibrillation with premature ventricular and aberrantly conducted complexes. Ventricular rate 63 bpm. Patient's echocardiogram completed February 22, 2022 had revealed normal left ventricular systolic function and a moderately dilated left atrium. No interatrial shunt with injection of contrast. The ascending aorta was borderline dilated as well. Coding Level of Care Code 07738 Initial Inpt Care Lvl 3 Diagnoses Stroke due to embolism I63.10 Precerebral and cerebral artery: unspecified precerebral artery (1) Stroke due to embolism Precerebral and cerebral artery: unspecified precerebral artery Qualified Code(s): I63.10 - Cerebral infarction due to embolism of unspecified precerebral artery
[2022-02-26] MEDS ORDERED: OPTIRAY 320 125ml IV ONE (11:39)
--- NOTE | 2022-02-26 11:57 | CT Scan Report ---
CT ANGIOGRAPHY OF THE NECK WITH CONTRAST CLINICAL HISTORY: Acute right cerebellar stroke. COMPARISON STUDY: CTA of the neck February 22, 2022. Technique: CT angiography of the carotid and vertebral arteries was obtained using Optiray and 3D rec onstruction on an independent workstation. NASCET criteria was utilized. Automated exposure control was utilized for the study. A dose lowering technique was utilized adhering to the principles of ALA RA. CT DOSE: 681.15 mGy.cm Findings: Mild emphysema is noted within the lung apices. Numerous mildly enlarged bilateral cervical lymph nodes are again noted. These were shown on prior CT. The bilateral common carotid, cervical in ternal carotid and vertebral arteries are patent. There is moderate plaque within the bilateral carot id bifurcations without stenosis. There is no dissection within the major vessels of the neck. Left v ertebral artery is dominant and patent. There is no aneurysm within the neck. CTA of the head will be reported separately. IMPRESSION: 1. No stenosis or dissection within the bilateral common carotid, cervical internal carotid or verteb ral arteries. 2. Numerous mildly enlarged bilateral cervical lymph nodes consistent with the known history of CLL. ACT 112: Negative or not required by law. Electronically signed by: Garrett García M.D. 02/26/2022 11:55 AM
--- NOTE | 2022-02-26 12:05 | CT Scan Report ---
CTA ANGIOGRAPHY OF THE HEAD CLINICAL HISTORY: Acute right cerebellar stroke. COMPARISON STUDY: Head CT February 22, 2022. MRI of the brain February 24, 2022. TECHNIQUE: Helical axial images of the head were obtained following uneventful intravenous administr ation of 120 cc of Optiray. Sagittal and coronal reconstructions were viewed as well as maximal inten sity projections on an independent 3-D workstation. Automated exposure control was utilized for the study. A dose lowering technique was utilized adhering to the principles of ALARA. FINDINGS: Right middle cranial fossa arachnoid cyst is incidentally noted. Old infarct within the lat eral right cerebellar hemisphere is unchanged. The small acute infarct shown on MRI of February 24, 2022 i s not evident due to CT technique. Ventricular system is normal. Basal cisterns are patent. Sensitivi ty for detection of acute hemorrhage is diminished on this contrast enhanced exam but none is identif ied. The bilateral M1, M2, A1 and A2 segments are patent. There is no intracranial aneurysm. No centr al vessel occlusion is present. The left vertebral artery is dominant. Basilar artery is patent. Bila teral posterior cerebral arteries are patent. The appearance of the head CTAs similar to exam of February 22, 2022. IMPRESSION: 1. No intracranial aneurysm or central vessel occlusion. 2. Old right cerebellar hemisphere infarct. Small acute infarct on MRI of February 24, 2022 not evident gi simone CT technique. ACT 112: Negative or not required by law. Electronically signed by: Garrett García M.D. 02/26/2022 12:02 PM
--- NOTE | 2022-02-26 12:49 | Hospitalist Progress Note ---
Date of Service February 26, 2022 Assessment & Plan (1) Stroke due to embolism: Plan: Acute on Chronic right cerebellar infarct as seen on repeat MRI, which shows new infarct right next to the old one Patient already on Eliquis, ASA and Statin, which we will continue Repeat CT angio head and neck to rule out vertebral or cerebellar occlusion Obtain MICHAEL, in light of dental carries Permissive HTN Appreciate Neurology recs (2) Mild ascending aorta dilatation: Plan: Incidentally noted on previous ECHO - Serial CT scan and following as outpatient (3) Atrial fibrillation: Plan: Remains rate controlled without medication. Has some pauses overnight, but no present need. - Continue Eliquis for stroke risk reduction - follow HR (4) CLL (chronic lymphocytic leukemia): Plan: History of who is on surveillance with [facility] Isaac diagnosed in 2018- STEVENSON stage 0 reported (5) Hypothyroidism: Plan: Continue synthroid no acute needs (6) Hyperlipidemia: Plan: Increased statin last admission - continue with atorvastatin 40mg po daily (7) Hypertension: Plan: HCTZ- continue - tolerate permissive HTN (8) Diabetes mellitus: Plan: Hold Metformin - carb consistent diet with aspart sliding scale (9) Abnormal CT scan, esophagus: Plan: Dilated esophagus with note of debris on last imaging - currently without symptoms of dysphagia, facial asymmetry, or dysarthria - MACHINE SHORTHAND REPORTER consulted for swallow eval Plan: PT/OT, plan for home with home PT or rehab Admission and Anticipated Discharge Date Admission Date: February 24, 2022 Subjective patient seen and examined, still having bouts of dizziness, but denies weakness or slurred speech Review of Systems Review of Systems: All systems reviewed are negative, apart from the ones contained in the history. Physical Exam Physical Exam: The patient is awake, alert and oriented 3, well developed and well nourished, normocephalic and atraumatic, lying in bed and in no acute distress. HEENT--PERRL, EOMI, mucous membranes and oropharynx mildly dry Neck--supple. No JVD. No bruits. Thyroid normal, trachea midline, no adenopathy. Heart--normal S1 and S2. No murmurs, rubs or gallops. Lungs--clear bilaterally, no respiratory distress, no accessory muscle use. Abdomen--normal bowel sounds and soft. Mild epigastric and left sided abdominal pain Extremities--no cyanosis or clubbing. No edema. Dermatologic--normal skin turgor, normal color, no abnormal lymph nodes, no rash. Neurologic--cranial nerves II through XII grossly intact. Rheumatologic--normal range of motion. Psychiatric--normal affect. Results & Data Results & Data ([facility]) Vital Signs (Past 12 Hours) Vital Signs Temp Pulse Pulse Resp BP BP Pulse Ox 02/26/22 11:36 97.5 F L 66 18 162/96 H 94 02/26/22 07:28 98.1 F 65 19 160/97 H 93 02/26/22 06:18 63 02/26/22 03:23 98.2 F 68 18 151/94 H 94 PG Care Time/CCT Total # of Minutes Spent Total Time Spent with Patient: Total time spent is greater than 50% in coordination of care (as documented) at patient's floor/unit and/or counseling patient: Coding Level of Care Code 94957 Subseq Hosp Care Lvl 2 Diagnoses Stroke due to embolism I63.10 Precerebral and cerebral artery: unspecified precerebral artery Mild ascending aorta dilatation I77.810 Atrial fibrillation I48.91 Atrial fibrillation type: unspecified CLL (chronic lymphocytic leukemia) C91.10 Hypothyroidism E03.9 Hyperlipidemia E78.5 Hypertension I10 Diabetes mellitus E11.[address] scan, esophagus R93.3 Time Spent (min) 35 (1) Stroke due to embolism Precerebral and cerebral artery: unspecified precerebral artery Qualified Code(s): I63.10 - Cerebral infarction due to embolism of unspecified precerebral artery (2) Atrial fibrillation Atrial fibrillation type: unspecified Qualified Code(s): I48.91 - Unspecified atrial fibrillation
[2022-02-26] MEDS: ATORVASTATIN 40 MG TAB PO SCH (20:12)
[2022-02-27] MEDS: LEVOTHYROXINE SODIUM 75 MCG TABLET PO SCH (06:11)
[2022-02-27] MEDS: hydroCHLOROthiazide 25 MG TAB PO SCH (08:05)
[2022-02-27] MEDS: ASPIRIN 81 MG ECTAB PO SCH (08:05)
[2022-02-27] MEDS: APIXABAN 5 MG TABLET PO SCH ×2 (08:05→20:16)
[2022-02-27] MEDS: INSULIN ASPART PER UNIT SC SCH ×4 (08:07→22:14)
[2022-02-27 09:26] LABS: Hematocrit (blood only) 47.7 % (42-52); Hemoglobin 16.4 g/dL (14.0-18.0); Mean Corpuscular Hemoglobin 29.3 pg (25-34); Mean Corpuscular Hgb Conc 34.4 g/dL (32-36); Mean Corpuscular Volume 85.2 fL (80-100); Mean Platelet Volume 9.6 fL (7.4-10.4); Platelet Count 294 K/uL (130-400); RDW Coefficient of Variation 13.5 % (11.5-14.5); RDW Standard Deviation 41.2 fL (36.4-46.3); White Blood Count 21.91 K/uL (4.8-10.8)
[2022-02-27 10:01] LABS: Basophils # (auto) 0.07 K/uL (0-0.2); Basophils % (auto) 0.3 %; Eosinophils # (auto) 0.14 K/uL (0-0.5); Eosinophils % (auto) 0.6 %; Immature Granulocytes # (auto) 0.05 K/uL (0.00-0.02); Immature Granulocytes % (auto) 0.2 %; Lymphocytes # (auto) 14.58 K/uL (1.2-3.4); Lymphocytes % (auto) 66.5 %; Monocytes # (auto) 0.61 K/uL (0.11-0.59); Monocytes % (auto) 2.8 %; Neutrophils # (auto) 6.46 K/uL (1.4-6.5); Neutrophils % (auto) 29.6 %; Smudge Cells Present
[2022-02-27 10:03] LABS: Calcium 9.6 mg/dl (8.5-10.1); Creatinine Clr Calc Pharmacy 82.6 ml/min; Est GFR (Non-African American) 75.9 ml/min; Magnesium 1.8 mg/dl (1.7-2.4); Potassium 3.6 mmol/L (3.5-5.1)
--- NOTE | 2022-02-27 11:11 | Hospitalist Progress Note ---
Date of Service February 27, 2022 Assessment & Plan (1) Stroke due to embolism: Plan: Acute on Chronic right cerebellar infarct as seen on repeat MRI, which shows new infarct right next to the old one Patient already on Eliquis, ASA and Statin, which we will continue Repeat CT angio head and neck to rule out vertebral or cerebellar occlusion Obtain MICHAEL, in light of dental carries. This has been scheduled for Monday Permissive HTN Appreciate Neurology recs (2) Mild ascending aorta dilatation: Plan: Incidentally noted on previous ECHO - Serial CT scan and following as outpatient (3) Atrial fibrillation: Plan: Remains rate controlled without medication. Has some pauses overnight, but no present need. - Continue Eliquis for stroke risk reduction - follow HR (4) CLL (chronic lymphocytic leukemia): Plan: History of who is on surveillance with [facility] Isaac diagnosed in 2018- STEVENSON stage 0 reported (5) Hypothyroidism: Plan: Continue synthroid no acute needs (6) Hyperlipidemia: Plan: Increased statin last admission - continue with atorvastatin 40mg po daily (7) Hypertension: Plan: HCTZ- continue - tolerate permissive HTN (8) Diabetes mellitus: Plan: Hold Metformin - carb consistent diet with aspart sliding scale (9) Abnormal CT scan, esophagus: Plan: Dilated esophagus with note of debris on last imaging - currently without symptoms of dysphagia, facial asymmetry, or dysarthria - PRESIDENT & FOUNDER consulted for swallow eval Plan: PT/OT, plan for home with home PT or rehab after MICHAEL on Monday Admission and Anticipated Discharge Date Admission Date: February 24, 2022 Subjective patient seen and examined, still having bouts of dizziness, but denies weakness or slurred speech. Awaiting MICHAEL Review of Systems Review of Systems: All systems reviewed are negative, apart from the ones contained in the history. Physical Exam Physical Exam: The patient is awake, alert and oriented 3, well developed and well nourished, normocephalic and atraumatic, lying in bed and in no acute distress. HEENT--PERRL, EOMI, mucous membranes and oropharynx mildly dry Neck--supple. No JVD. No bruits. Thyroid normal, trachea midline, no adeno catrachita. Heart--normal S1 and S2. No murmurs, rubs or gallops. Lungs--clear bilaterally, no respiratory distress, no accessory muscle use. Abdomen--normal bowel sounds and soft. Mild epigastric and left sided abdominal pain Extremities--no cyanosis or clubbing. No edema. Dermatologic--normal skin turgor, normal color, no abnormal lymph nodes, no rash. Neurologic--cranial nerves II through XII grossly intact. Rheumatologic--normal range of motion. Psychiatric--normal affect. Results & Data Results & Data ([facility]) Vital Signs (Past 12 Hours) Vital Signs Temp Pulse Pulse Resp BP Pulse Ox 02/27/22 07:35 97.5 F L 52 L 16 149/91 H 96 02/27/22 06:29 60 02/27/22 02:39 97.7 F 69 18 158/112 H 95 02/27/22 01:45 75 PG Care Time/CCT Total # of Minutes Spent Total Time Spent with Patient: Total time spent is greater than 50% in coordination of care (as documented) at patient's floor/unit and/or counseling patient: Coding Level of Care Code 27400 Subseq Hosp Care Lvl 2 Diagnoses Stroke due to embolism I63.10 Precerebral and cerebral artery: unspecified precerebral artery Mild ascending aorta dilatation I77.810 Atrial fibrillation I48.91 Atrial fibrillation type: unspecified CLL (chronic lymphocytic leukemia) C91.10 Hypothyroidism E03.9 Hyperlipidemia E78.5 Hypertension I10 Diabetes mellitus E11.[address] scan, esophagus R93.3 Time Spent (min) 35 (1) Stroke due to embolism Precerebral and cerebral artery: unspecified precerebral artery Qualified Code(s): I63.10 - Cerebral infarction due to embolism of unspecified precerebral artery (2) Atrial fibrillation Atrial fibrillation type: unspecified Qualified Code(s): I48.91 - Unspecified atrial fibrillation
[2022-02-27] MEDS: ATORVASTATIN 40 MG TAB PO SCH (20:15)
[2022-02-28] MEDS: LEVOTHYROXINE SODIUM 75 MCG TABLET PO SCH (05:28)
[2022-02-28] MEDS: APIXABAN 5 MG TABLET PO SCH (09:51)
[2022-02-28] MEDS: hydroCHLOROthiazide 25 MG TAB PO SCH (09:51)
[2022-02-28] MEDS: ASPIRIN 81 MG ECTAB PO SCH (09:51)
[2022-02-28] MEDS: INSULIN ASPART PER UNIT SC SCH ×2 (09:51→14:13)
--- NOTE | 2022-02-28 13:53 | XCELERA ---
[id number]
--- NOTE | 2022-02-28 14:09 | Discharge Summary ---
Date of Service February 28, 2022 Admission HPI Per Admitting Provider 71 YOM who was discharged on 02/23/22 following admission for cerebellar infarct in the setting of new onset atrial fibrillation. There was also some concern at that time for possible SBE with dental procedure preceding this as well- this was evaluated at that time with TTE. He was medically optimized with addition of Eliquis, increase in statin, aspirin - he was reportedly doing well and did well with rehab. The patient was discharged from the hospital- he reports he felt well until the evening, where he ate a sandwich and started to watch some baseball and had return of "fuzzy" vision, headache, nausea and vomiting. He endorses that he tried to then go to bed and the nausea, vomiting persisted and was associated at that time with difficulty getting balance. He is unsure if the room was spinning or not but just felt like he had to grab on things to get his balance. He is accompanied with his daughters and appreciate their assistance. Exam was completed in concert with Dr. Del Angel as he had the patient yesterday for continuity. He is with NIHSS- 0, and without visual field skew, or visual field loss, and is without nystagmus with lateral head rotation. Also unable to reproduce symptoms with movment or position change. Will admit patient- obtain repeat MRI, continue with his anticoagulation as CT of the head is negative for hemorrhage. Likely will need some aggressive PT/OT with this. Overall labs unremarkable, will continue his Augmentin for his postoperative dental procedure treatment. His WBC count with smudge cells is consistent with his diagnosis of CLL, blood cultures from the remain with no growth. Past medical history with DM, HTN, HLD, Hypothyroidism, Afib. COVID test is: NEGATIVE Principal Diagnosis CVA Discharge Exam The patient is awake, alert and oriented 3, well developed and well nourished, normocephalic and atraumatic, lying in bed and in no acute distress. HEENT--PERRL, EOMI, mucous membranes and oropharynx mildly dry Neck--supple. No JVD. No bruits. Thyroid normal, trachea midline, no adenopathy. Heart--normal S1 and S2. No murmurs, rubs or gallops. Lungs--clear bilaterally, no respiratory distress, no accessory muscle use. Abdomen--normal bowel sounds and soft. Mild epigastric and left sided abdominal pain Extremities--no cyanosis or clubbing. No edema. Dermatologic--normal skin turgor, normal color, no abnormal lymph nodes, no rash. Neurologic--cranial nerves II through XII grossly intact. Rheumatologic--normal range of motion. Psychiatric--normal affect. Discharge Data Allergies Allergy/AdvReac Type Severity Reaction Status Date / Time scallops Allergy Intermediate severe Verified 02/24/22 09:59 nausea / vomiting SHAHEEN Inhibitors Allergy Unknown Unknown Unverified 02/24/22 09:59 Consultations 02/24/22 10:16 ED Decision to Admit Stat 02/26/22 07:44 Consult Neurology Routine 02/28/22 09:29 Consult Cardiology Routine Procedures Performed Operation Date: 02/28/22 12:00 <No data on this case meets the specified criteria> Ordered Studies 02/24/22 08:22 CT head/brain wo con Stat 02/24/22 11:02 MR brain wo con Routine 02/26/22 10:21 CT angio head w con Routine CT angio neck with con Routine Hospital Course (1) 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 Initial plan for MICHAEL was shelved after discussing with cardiology, who thinks and I agree that the chances of endocarditis is low Permissive HTN Appreciate Neurology recs (2) Mild ascending aorta dilatation: Incidentally noted on previous ECHO - Serial CT scan and following as outpatient (3) Atrial fibrillation: Remains rate controlled without medication. Has some pauses overnight, but no present need. - Continue Eliquis for stroke risk reduction - follow HR (4) CLL (chronic lymphocytic leukemia): History of who is on surveillance with [facility] diagnosed in 2018- STEVENSON stage 0 reported (5) Hypothyroidism: Continue synthroid no acute needs (6) Hyperlipidemia: Increased statin last admission - continue with atorvastatin 40mg po daily (7) Hypertension: HCTZ- continue - tolerate permissive HTN (8) Diabetes mellitus: Hold Metformin - carb consistent diet with aspart sliding scale (9) Abnormal CT scan, esophagus: Dilated esophagus with note of debris on last imaging - currently without symptoms of dysphagia, facial asymmetry, or dysarthria - 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 discharge home Total Time Total Time Spent Total Time Spent (In Minutes): 35 Discharge Plan Discharge Items Patient Disposition: Home - Self-Care Reason For Visit: DIZZINESS, CVA Discharge Diagnosis: CVA Activity: Resume your previous activity Non-emergency contact: Primary Care Provider Call non-emergency contact if: you have any medication questions and your symptoms worsen Follow-up/Referrals: Damaso Venegas MD [Primary Care Provider] - 03/02/22 2:00 pm Diet: Regular Addtl Attending Provider Instructions: please make appointment to follow up with your PCP Pending Studies at Discharge: No Stand-Alone Forms: My [employer], Smoking Cessation Medications and DC Order Prescriptions: Continued levothyroxine 75 mcg tablet 75 mcg PO DAILYBB RF: 0 aspirin 81 mg tablet,delayed release (DR/EC) 81 mg PO QAM RF: 0 metformin 500 mg Tablet 500 mg PO BIDM RF: 0 hydrochlorothiazide 25 mg Tablet 25 mg PO QAM RF: 0 amoxicillin 875 mg tablet 875 mg PO BID RF: 0 atorvastatin 40 mg Tablet 40 mg PO HS Qty: 30 RF: 0 apixaban 5 mg tablet 5 mg PO BID Qty: 60 RF: 0 Discharge Orders: Discharge Order (Routine); Ordered 02/28/22 Ordered By: Christine Ny/Other Patient Handouts: Managing Type 2 Diabetes, 5 Steps for Eating Healthier Admission Data Admit Date/Time: 02/24/22 10:34 Attending Provider: Christine Olivier Admit Provider: Jacques Machado Primary Care Provider: Damaso Venegas Other Providers: Kwabena Shields ; Martínez Shirley Coding Level of Care Code D/C DAY MANAGEMENT >30 MINS Diagnoses Stroke due to embolism I63.10 Precerebral and cerebral artery: unspecified precerebral artery Mild ascending aorta dilatation I77.810 Atrial fibrillation I48.91 Atrial fibrillation type: unspecified CLL (chronic lymphocytic leukemia) C91.10 Hypothyroidism E03.9 Hyperlipidemia E78.5 Hypertension I10 Diabetes mellitus E11.[address] scan, esophagus R93.3 Time Spent (min) 35
== END 2022-02-28 15:03 | disposition home or self-care (01) | DRG 65 ==
LOC: ED 08:17 → SUATTDRO 10:34 → 2N 10:34

== ENCOUNTER 2024-09-28 09:45 | Observation (INO) ==
--- NOTE | 2024-09-28 09:48 | Emergency Department Note ---
Impression & Plan Bilateral ureteral obstruction, Atrial fibrillation, Colic, ureteral, Left sided abdominal pain ED Provider Note NAME: ALEJA REZA AGE: 74 SEX: M : 1950 ARRIVES VIA: Ambulance INFORMANT: Patient, nursing report ED PROVIDER(S): Carroll Parada MD CHIEF COMPLAINT: Flank abdominal lower chest pain MEDICAL DECISION MAKING: Patient presents with the above. Patient symptoms seem to be in the left abdomen and flank area but does describe some lower rib pain. No history of A- fib no prior history of reported CAD per patient. IV was established and blood work was obtained. Initial EKG unremarkable. Blood work and [id number] obtained along CT abdomen pelvis and patient was ordered IV morphine and IV fluids. Blood work shows a white count of 11 with a hemoglobin of 12.8. Patient's platelet count is unremarkable. Kidney function unremarkable BSG of 348. Troponin negative. Urinalysis does not show evidence of obvious infection but does show blood. CT abdomen pelvis shows bilateral UVJ stones. To comment on cystitis although UA does not notice obvious infection. IV Rocephin ordered. It is with the on-call urologist Dr. Mason would likely take the patient to the OR for stone extraction and possible stenting. I did speak with the on-call hospitalist service Dr. Baker and the patient was admitted to the medicine service. Discussion w/ other healthcare providers: Dr. Mason urology Dr. Baker inpatient medicine service Prior /Outside records reviewed: None Differential diagnosis: Renal colic, UTI, pyelonephritis, appendicitis, diverticulitis, strain, sprain, fracture among others were considered. Diagnostics, as interpreted by me: ECG: A-fib, rate of 54, normal QRS duration normal axis T wave inversion lead III. No obvious STEMI. Cardiac monitoring: An order was placed for continuous cardiac monitoring. The monitor shows a rate of 65 with irregular irregular rhythm. Patient was placed on pulse oximetry Medical decision rules: None Imaging studies: I informally interpreted the patient's CT abdomen pelvis shows bilateral UVJ stones with formal report to follow. HPI: Patient presents due to concern for left-sided flank and abdominal pain as well as lower rib pain/chest pain. Patient states that the pain is intermittent and has been ongoing since about 7 [id number] this morning. The patient states that he got up did his typical morning routine use the bathroom took his dog out ate breakfast which included cereal and a cinnamon roll as well as having a couple coffee. The patient states that he was seated in a recliner when he had acute sudden onset of left-sided flank and abdominal pain with sometimes lower rib pain. Patient denies exertional symptoms. 4 out of 10 intermittent and sharp. Patient denies any blood in urine or stool he did have 2 separate bowel movements this morning. Patient denies any falls or trauma. No cough or fever. Patient did take a Tylenol this morning but no significant relief. Patient did take his morning medications. Patient does follow with Dr. Shirley with cardiology. Patient does not prior history of kidney stone was seen for this in August. He also states that he believes he had a kidney stone when he was hunting [employer] recently. It feels somewhat similar but may be more intense. PAST MEDICAL HISTORY: See Below PAST SURGICAL HISTORY: See Below SOCIAL HISTORY: See Below HOME MEDICATIONS: See Below ALLERGIES: See Below VITALS: See Below PHYSICAL EXAMINATION: GENERAL: NAD, non-toxic. EYE EXAM: Normal conjunctiva. PERRL, no anisocoria and EOM's grossly intact w/o pain. OROPHARYNX: Moist mucus membranes, grossly normal dentition. NECK: Trachea midline, no stridor. Supple, no nuchal rigidity, no adenopathy, non-tender. No signs of meningismus. FROM of the neck with good chin to chest and neck extension. LUNGS: Clear to auscultation. Normal chest wall mechanics. HEART: Regular irregular, no MRG. ABDOMEN: Abdomen soft, left-sided upper quadrant and flank pain with no right- sided abdominal pain, no masses, no rebound or guarding. BACK: No CVA TTP. SKIN: No rashes and no bruising. UPPER EXTREMITIES: Upper extremities are grossly normal. LOWER EXTREMITIES: Grossly normal, no edema. NEURO EXAM: A&O x3, cranial nerves II-XII grossly intact, normal speech, moves all 4 extremities. Past Med/Surg History Problem List (Updated 09/28/24 @ 13:18 by Carroll Parada MD) Left sided abdominal pain (Acute) Colic, ureteral (Acute) Bilateral ureteral obstruction (Acute) Hypoxia Bradycardia Hyperglycemia due to type 2 diabetes mellitus Ureteral calculi Aortic stenosis Ascending aorta dilatation Urinary frequency (Chronic) Dizziness (Acute) Vomiting (Acute) Abnormal CT scan, esophagus Mild ascending aorta dilatation Stroke due to embolism (Acute) Atrial fibrillation (Acute) Intractable nausea and vomiting (Acute) Constipation CLL (chronic lymphocytic leukemia) Osteoarthritis of left knee DVT prophylaxis Hypothyroidism Hyperlipidemia Hypertension Diabetes mellitus (Chronic) Encounter for pre-operative examination Medical History (Updated 09/28/24 @ 13:18 by Carroll Parada MD) Hepatitis per patient in 1970s had hepatitis - "worked in [place]"- took medication 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 BROOKS-DX'D 2016 Arthritis Hypothyroidism Diabetes mellitus, type 2 Hypertension Hyperlipidemia Surgical History History of herniorrhaphy History of bowel resection FOR PERFORATED DIVERTICULITIS History of arthroscopy R/L KNEE Family History Mother Family history of diabetes mellitus Other Colorectal cancer Denies family history of Ovarian cancer Prostate cancer Myocardial infarction Breast cancer Social History Smoking Status: Never smoker Tobacco Type: Pipe and Smokeless Tobacco (Dip or Chew) Cigarettes Per Day: PIPE 1 X A DAY X MANY YRS; Second Hand Exposure: Yes (SPOUSE SMOKES); Do You Dip or Chew Tobacco: Yes (1 can per week ); Hx Alcohol Use: Yes Alcohol type: beer and hard liquor Alcohol Intake Frequency: 2-4 x/Month Hx Substance Use: No Preferred Language: Slovenian Communication Ability: Effective Visual Impairment: No Limitations Hearing Ability: Use of Hearing Aid Maint Mechanic Required: No Beliefs That Will Affect Care: None marital status: Current Living Situation: Spouse current occupational status: employed and retired 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[employer], 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, was in [employer], works at [employer] now Feels Safe at Home: Yes Childhood Exposure to Second-Hand Smoke: Yes Diet: regular Dental Care, Regularly: Yes Physical Activity Frequency: Daily Seatbelt Use: always Sunscreen Use: Yes Assistive Devices: Cane and Walker Allergies Allergies Allergy/AdvReac Type Severity Reaction Status Date / Time scallops Allergy Intermediate severe Verified 07/15/24 20:58 nausea / vomiting SHAHEEN Inhibitors Allergy Unknown Unknown Verified 07/15/24 20:58 Home Meds Home Medications Medication Instructions Recorded Confirmed hydrochlorothiazide 25 mg tablet 25 mg PO QAM 06/28/19 09/28/24 sildenafil 100 mg tablet 100 mg PO UD PRN Erectile 03/29/22 09/28/24 Dysfunction apixaban 5 mg tablet (Eliquis) 5 mg PO BID 07/04/22 09/28/24 mecobalamin (vitamin B12) 500 mcg 500 mcg PO DAILY 05/11/23 09/28/24 chewable tablet metformin 500 mg tablet 1,000 mg PO BID 05/11/23 09/28/24 losartan 25 mg tablet 25 mg PO DAILY 06/06/24 09/28/24 Previous Rx's Medication Instructions Recorded atorvastatin 40 mg tablet 40 mg PO HS #30 tabs 02/23/22 levothyroxine 88 mcg tablet 88 mcg PO DAILYBB #1 tab 03/02/22 Results & Data (ED) Vital Signs Vital Signs - 24 hr 09/28/24 09:45 09/28/24 09:56 09/28/24 09:57 Temperature 37.1 C Temperature Source Oral Pulse Rate 59 L 60 Pulse Rate [Apical] Pulse Rate from SpO2 Sensor Respiratory Rate 20 Respiratory Effort / Characteristics Non-Labored Spontaneous Respiratory Depth Normal Respiratory Pattern Regular Blood Pressure 169/10 H Blood Pressure [Right Arm] Blood Pressure Mean 63 Blood Pressure Mean [Right Arm] Pulse Oximetry 95 98 Oxygen Delivery Method Room Air Room Air Oxygen Flow Rate Sepsis Recent Fever Within 48 Hours No Sepsis New/Unexplained Change in Mental Status No Sepsis Action Taken by Nursing No Action Required 09/28/24 09:57 09/28/24 10:00 09/28/24 11:00 Temperature Temperature Source Pulse Rate 64 48 L Pulse Rate [Apical] 48 L Pulse Rate from SpO2 Sensor 63 53 L Respiratory Rate 18 19 13 Respiratory Effort / Characteristics Non-Labored Spontaneous Respiratory Depth Normal Respiratory Pattern Blood Pressure 159/98 H Blood Pressure [Right Arm] 131/90 Blood Pressure Mean 118 Blood Pressure Mean [Right Arm] 103 Pulse Oximetry 93 95 94 Oxygen Delivery Method Room Air Room Air Oxygen Flow Rate Sepsis Recent Fever Within 48 Hours Sepsis New/Unexplained Change in Mental Status Sepsis Action Taken by Nursing 09/28/24 11:03 09/28/24 11:12 09/28/24 11:33 Temperature Temperature Source Pulse Rate 52 L 54 L Pulse Rate [Apical] Pulse Rate from SpO2 Sensor 52 L 51 L Respiratory Rate 26 H 15 Respiratory Effort / Characteristics Respiratory Depth Respiratory Pattern Blood Pressure 131/90 154/116 H Blood Pressure [Right Arm] Blood Pressure Mean 104 128 Blood Pressure Mean [Right Arm] Pulse Oximetry 95 97 Oxygen Delivery Method Oxygen Flow Rate Sepsis Recent Fever Within 48 Hours Sepsis New/Unexplained Change in Mental Status Sepsis Action Taken by Nursing 09/28/24 12:00 09/28/24 12:40 Temperature Temperature Source Pulse Rate 62 62 Pulse Rate [Apical] Pulse Rate from SpO2 Sensor 58 L Respiratory Rate 13 13 Respiratory Effort / Characteristics Respiratory Depth Respiratory Pattern Blood Pressure 159/91 H 146/96 H Blood Pressure [Right Arm] Blood Pressure Mean 101 Blood Pressure Mean [Right Arm] Pulse Oximetry 97 97 Oxygen Delivery Method Nasal Cannula Oxygen Flow Rate 3 Sepsis Recent Fever Within 48 Hours Sepsis New/Unexplained Change in Mental Status Sepsis Action Taken by Jail Medications Current Medication List: was personally reviewed by me Laboratory Data Attestation: I reviewed the patient's lab results. 09/28/24 09:55 09/28/24 09:55 Lab Results 09/28/24 09/28/24 09/28/24 Range/Units 09:55 09:56 10:12 WBC 11.01 H (4.8-10.8) K/ul RBC 4.48 L (4.70-6.10) M/uL Hgb 12.8 L (14.0-18.0) g/dl POC Hgb 13.3 L (14.0-18.0) g/dl Hct 39.0 L (42.0-52.0) % POC Hct 39 L (42-52) % MCV 87.1 (80.0-100.0) fL MCH 28.6 (25.0-34.0) pg MCHC 32.8 (32.0-36.0) g/dL RDW Std Deviation 43.8 (36.4-46.3) fL RDW Coeff of Mariya 13.8 (11.5-14.5) % Plt Count 162 (130-400) K/uL MPV 10.5 (9.4-12.4) fL Immature Gran % (Auto) 0.3 % Neut % (Auto) 48.0 % Lymph % (Auto) 45.3 % Aurora % (Auto) 5.3 % Eos % (Auto) 0.5 % Baso % (Auto) 0.6 % Neut # (Auto) 5.28 (1.40-6.50) K/uL Lymph # (Auto) 4.99 H (1.20-3.40) K/uL Aurora # (Auto) 0.58 (0.11-0.59) K/uL Eos # (Auto) 0.06 (0.00-0.50) K/uL Baso # (Auto) 0.07 (0.00-0.20) K/uL Immature Gran # (Auto) 0.03 (0.01-0.20) K/uL POC Sodium 137 (135-144) mmol/L Sodium 136 (136-145) mmol/L POC Potassium 4.3 (3.3-5.0) mmol/L Potassium 4.4 (3.5-5.1) mmol/L POC Chloride 103 (101-112) mmol/L Chloride 105 (98-107) mmol/L Carbon Dioxide 23 (21-32) mmol/L POC Total CO2 22 L (24-31) mmol/L Anion Gap 8 (3-11) POC Anion Gap 17.0 (16-25) mmol/L POC BUN 27 H (7-18) mg/dl BUN 27 H (6-23) mg/dl Creatinine 1.12 (0.6-1.4) mg/dl POC Creatinine 1.1 (0.6-1.3) mg/dl Est Cr Clr Drug Dosing 73.4 ml/min eGFR 69.37 BUN/Creatinine Ratio 24.1 H (10-20) Glucose 348 H* (70-99(Fasting)) mg/dl POC Glucose (70-99) mg/dl POC Glucose (other) 342 H (70-99) mg/dl Calcium 9.2 (8.6-10.3) mg/dl POC Ioniz Calcium Mona 1.23 (1.12-1.32) mmol/l Total Bilirubin 0.9 (0.2-1.0) mg/dl AST 14 (13-39) U/L ALT 16 (7-52) U/L Alkaline Phosphatase 65 (34-104) U/L Troponin I High Sens 6.0 (0-20) pg/ml Total Protein 6.6 (6.0-8.3) gm/dl Albumin 3.9 (3.4-5.0) gm/dl Globulin 2.7 (2.5-4.0) gm/dl Albumin/Globulin Ratio 1.4 (0.9-2) Lipase 23 (11-82) U/L Urine Color Yellow Urine Appearance Cloudy A (Clear) Urine pH 5.0 (4.5-7.5) Ur Specific [place] 1.025 (1.000-1.030) Urine Protein 1+ H (Negative) Urine Glucose (UA) 3+ H (Negative) Urine Ketones Negative (Negative) Urine Blood 3+ H (Negative) Urine Nitrite Negative (Negative) Urine Bilirubin Negative (Negative) Urine Urobilinogen Negative (Negative) Ur Leukocyte Esterase Negative (Negative) Urine WBC (Auto) 0-5 (0-5) /hpf Urine RBC (Auto) >20 H (0-2) /hpf U Hyaline Cast (Auto) 0-2 (0-2) /lpf U Epithel Cells (Auto) 0-2 (0-2) /hpf Urine Bacteria (Auto) None Seen (None Seen) 09/28/24 Range/Units 12:09 WBC (4.8-10.8) K/ul RBC (4.70-6.10) M/uL Hgb (14.0-18.0) g/dl POC Hgb (14.0-18.0) g/dl Hct (42.0-52.0) % POC Hct (42-52) % MCV (80.0-100.0) fL MCH (25.0-34.0) pg MCHC (32.0-36.0) g/dL RDW Std Deviation (36.4-46.3) fL RDW Coeff of Mariya (11.5-14.5) % Plt Count (130-400) K/uL MPV (9.4-12.4) fL Immature Gran % (Auto) % Neut % (Auto) % Lymph % (Auto) % Aurora % (Auto) % Eos % (Auto) % Baso % (Auto) % Neut # (Auto) (1.40-6.50) K/uL Lymph # (Auto) (1.20-3.40) K/uL Aurora # (Auto) (0.11-0.59) K/uL Eos # (Auto) (0.00-0.50) K/uL Baso # (Auto) (0.00-0.20) K/uL Immature Gran # (Auto) (0.01-0.20) K/uL POC Sodium (135-144) mmol/L Sodium (136-145) mmol/L POC Potassium (3.3-5.0) mmol/L Potassium (3.5-5.1) mmol/L POC Chloride (101-112) mmol/L Chloride (98-107) mmol/L Carbon Dioxide (21-32) mmol/L POC Total CO2 (24-31) mmol/L Anion Gap (3-11) POC Anion Gap (16-25) mmol/L POC BUN (7-18) mg/dl BUN (6-23) mg/dl Creatinine (0.6-1.4) mg/dl POC Creatinine (0.6-1.3) mg/dl Est Cr Clr Drug Dosing ml/min eGFR BUN/Creatinine Ratio (10-20) Glucose (70-99(Fasting)) mg/dl POC Glucose 219 H (70-99) mg/dl POC Glucose (other) (70-99) mg/dl Calcium (8.6-10.3) mg/dl POC Ioniz Calcium Mona (1.12-1.32) mmol/l Total Bilirubin (0.2-1.0) mg/dl AST (13-39) U/L ALT (7-52) U/L Alkaline Phosphatase (34-104) U/L Troponin I High Sens (0-20) pg/ml Total Protein (6.0-8.3) gm/dl Albumin (3.4-5.0) gm/dl Globulin (2.5-4.0) gm/dl Albumin/Globulin Ratio (0.9-2) Lipase (11-82) U/L Urine Color Urine Appearance (Clear) Urine pH (4.5-7.5) Ur Specific [place] (1.000-1.030) Urine Protein (Negative) Urine Glucose (UA) (Negative) Urine Ketones (Negative) Urine Blood (Negative) Urine Nitrite (Negative) Urine Bilirubin (Negative) Urine Urobilinogen (Negative) Ur Leukocyte Esterase (Negative) Urine WBC (Auto) (0-5) /hpf Urine RBC (Auto) (0-2) /hpf U Hyaline Cast (Auto) (0-2) /lpf U Epithel Cells (Auto) (0-2) /hpf Urine Bacteria (Auto) (None Seen) Administered Medications Discontinued Medications Sodium Chloride (Nss) 250 mls @ 999 mls/hr IV .Q16M ONE Stop: 09/28/24 10:11 Last Infusion: 09/28/24 10:23 Dose: Infused Documented By: Admin: 09/28/24 10:07 Dose: 999 mls/hr Documented By: JIMENA Ceftriaxone Sodium (Rocephin) 2,000 mg in 50 mls @ 100 mls/hr IV NOW STA Stop: 09/28/24 11:15 Last Infusion: 09/28/24 12:09 Dose: Infused Documented By: Admin: 09/28/24 11:08 Dose: 100 mls/hr Documented By: JIMENA Sodium Chloride (Nss) 1,000 mls @ 999 mls/hr IV .Q1H1M ONE Stop: 09/28/24 11:48 Last Infusion: 09/28/24 12:35 Dose: Infused Documented By: Admin: 09/28/24 11:07 Dose: 999 mls/hr Documented By: JIMENA Acetaminophen (Ofirmev) 1,000 mg in 100 mls @ 400 mls/hr IV NOW STA Stop: 09/28/24 11:58 Last Infusion: 09/28/24 12:34 Dose: Infused Documented By: Admin: 09/28/24 12:09 Dose: 400 mls/hr Documented By: MARCI Ioversol (Optiray 320 100ml) 94 ml IV ONCE ONE Stop: 09/28/24 10:15 Last Admin: 09/28/24 10:14 Dose: 94 ml Documented By: Morphine Sulfate (Morphine Sulfate 4 Mg/Ml 1 Ml Carp\\Vial) 4 mg IV NOW STA Stop: 09/28/24 09:57 Last Admin: 09/28/24 10:02 Dose: 4 mg Documented By: JIMENA Morphine Sulfate (Morphine Sulfate 10 Mg/Ml Carp/Vial) 6 mg IV NOW STA Stop: 09/28/24 10:47 Last Admin: 09/28/24 11:05 Dose: 6 mg Documented By: JIMENA Ondansetron HCl (Ondansetron Inj 2 Mg/Ml 2 Ml Vial) 4 mg IV NOW STA Stop: 09/28/24 09:57 Last Admin: 09/28/24 10:02 Dose: 4 mg Documented By: Imaging Data Radiologist's Impression: Abdomen/Pelvis CT 09/28/24 09:56 EXAM: CT Abdomen and Pelvis With Intravenous Contrast INDICATION: Left flank pain. TECHNIQUE: Axial computed tomography images of the abdomen and pelvis with intravenous contrast. Sagittal and coronal reformatted images were created and reviewed. This CT exam was performed using one or more of the following dose reduction techniques: automated exposure control, adjustment of the mA and/or kV according to patient size, and/or use of iterative reconstruction technique. CONTRAST: 94 ml of Optiray 320 was administered intravenously. COMPARISON: 07/15/2024 FINDINGS: Limitations: None. Lung bases: No abnormality noted. Pleural space: New small left and trace right layering pleural effusions. Heart: Stable cardiomegaly. No pericardial effusion. Mediastinum: No abnormality noted. ABDOMEN: Liver: No abnormality noted. Gallbladder and bile ducts: No calcified stones or surrounding fluid. Pancreas: Homogeneous enhancement. No mass, inflammation or ductal dilation. Spleen: No significant abnormality noted. Adrenals: No significant abnormality noted. Kidneys and ureters: 12 x 9 mm distal right ureteral stone has migrated slightly to the UVJ. There is now a 6 mm stone at the left UVJ. There is new mild left hydroureteronephrosis. Increased nonobstructing stone burden in the left kidney and stable nonobstructing intrarenal stones right kidney. There is left perinephric edema. No urinary gas. Simple bilateral renal cysts noted. No follow-up necessary. No stones or hydronephrosis. Stomach and bowel: Moderate amounts of stool throughout the colon. Diverticulosis. No diverticulitis or obstruction. PELVIS: Appendix: Well seen and appears normal. Bladder: Urinary bladder is incompletely distended and appears mildly inflamed. No gas. Previously identified tiny stone in the lumen is no longer present. Reproductive: The prostate measures 6.0 x 5.2 x 5.6 cm. ABDOMEN and PELVIS: Intraperitoneal space: No free air. No significant fluid collection. Bones/joints: No acute changes. Soft tissues: Intact umbilical hernia repair. Left inguinal hernia noted containing fat. Vasculature: No abdominal aortic aneurysm. Lymph nodes: Stable shotty retroperitoneal nodes. No pathologically enlarged nodes identified. IMPRESSION: 1. Left 6 mm UVJ stone with mild left hydroureteronephrosis. 2. 12 x 9 mm distal right ureteral stone has migrated slightly to the right UVJ compared to 07/15/2024. No right hydronephrosis. 3. Cystitis. Tiny stone previously noted in the bladder is no longer identified. 4. Bilateral intrarenal stones noted with increased numbers on the left. Impression new small left and trace right pleural effusions. ACT 112: Negative or not required by law. Electronically signed by Tania Hernandez 09-28-2024 10:38 AM Discharge Plan Visit Data Chief Complaint: Flank Pain Stated Complaint: AB & BACK PAIN ED Provider: Carroll Parada Discharge Problem: Bilateral ureteral obstruction, Atrial fibrillation, Colic, ureteral, Left sided abdominal pain Discharge Instructions Interventions: ED Discharge Assessment Last Done: 09/28/24 12:40 Discharge Problem: Atrial fibrillation Qualifiers: Atrial fibrillation type: unspecified Qualified Code(s): I48.91 - Unspecified atrial fibrillation
--- OUTSIDE RECORDS SUMMARY | 2024-09-28 09:51 | External Medical Summary | Continuity of Care Document ---
Author Name Unknown Organization [facility] [address] [facility] [address] [id number] Care Team Providers Care Boring Machine Feeder Name Role Phone Danette Maier Primary Care Physician [phone] [id number] Date(s): 08/01/24 - 08/01/24 [facility] [address] [facility] [address] [phone] Encounter Diagnosis Basal cell carcinoma of right lower leg(Discharge Diagnosis) - 08/01/24 Basal cell carcinoma of left lower leg(Discharge Diagnosis) - 08/01/24 Discharge Disposition: Home or Self Care Attending Physician: MD Benjamin Sara B Referring Physician: MD Benjamin Sara B Allergies, Adverse Reactions, Alerts No Known Allergies Medications atorvastatin Start: 11/17/17 1:06:00 PM EST, 20 mg =, PO, Daily, takes 1/2 tab daily Start Date: 11/17/17 Status: Ordered Eliquis 5 mg oral tablet Start: 07/06/22 10:01:00 AM EDT, 1 tab, PO, bid Start Date: 07/06/22 Status: Ordered hydrochlorothiazide 25 mg oral tablet Start: 12/22/14 2:14:00 PM EDT, 1 tab, PO, Daily Start Date: 12/22/14 Status: Ordered levothyroxine 88 mcg (0.088 mg) oral tablet Start: 07/06/22 10:00:00 AM EDT, 1 tab, PO, Daily Start Date: 07/06/22 Status: Ordered losartan Start: 07/11/24 1:27:00 PM EDT Start Date: 07/11/24 Status: Ordered metFORMIN Start: 11/17/17 1:06:00 PM EST, 500 mg =, PO, bid Start Date: 11/17/17 Status: Ordered Vitamin B12 50 mcg oral tablet Start: 07/10/23 2:00:00 PM EDT, 1 tab, PO, Daily Start Date: 07/10/23 Status: Ordered Problem List Condition Confirmation Course Effective Dates Status Health St atus Informant Basal cell carcinoma of back Confirmed Active Basal cell carcinoma of right ear Confirmed Active Basal cell carcinoma of right thigh Confirmed Active Basal cell carcinoma of neck 1 Confirmed Active Nevus of face Confirmed Active Changing skin lesion Confirmed Active Encounter for exam following cancer surgery Confirmed Active History of basal cell carcinoma of skin Confirmed Active Hypertension Confirmed Active Hypothyroid Confirmed Active Hepatitis 2 Confirmed Active Joint pain 3 Confirmed Active Kidney stone Confirmed Active Actinic keratoses Confirmed Active Skin lesion Confirmed Active Sun-damaged skin Confirmed Active Tobacco user Confirmed Active 1right anterior neck 2pt not sure what type. 3knees. Diagnosis Diagnosis Type Effective Dates Health Status Cl inical Service Informant Basal cell carcinoma of right lower leg Discharge Diagnosis 08/01/24 Basal cell carcinoma of left lower leg Discharge Diagnosis 08/01/24 Procedures Procedure Date Related Diagnosis Body Site Status Electrodesiccation with curettage 08/01/24 Completed Electrodesiccation with curettage 08/01/24 Completed Shave biopsy and cauterizati on of skin 1 07/11/24 Completed Excision biopsy 2 07/27/23 Complet ed Shave biopsy and cauterizati on of skin 3 07/10/23 Completed Excision 4 09/15/22 Completed Mohs micrographic surgery 07/27/22 Completed Shave biopsy and cauterizati on of skin 5 07/06/22 Completed Excision of skin 11/30/17 Complete d Shave biopsy and cauterisati on of skin 6 11/17/17 Completed Shave biopsy and cauterisati on of skin 7 08/10/17 Completed Shave biopsy of skin 12/22/14 Comp leted Hernia 8 Completed Surgery 9 Completed Surgery 10 Completed 11. Right cheek 2. Right inner lower leg 3. Left lateral lower leg 2leg 31. left calf superior 2. left calf inferior 3. left neck 4ED&C left post shoulder. 51. Right conchal bowl 2. Left post shoulder 3. Right thigh 4. Right upper medial eyelid 6left rodriguez 7ED&C 22117 or 2013 9knee surgery 2001 l 2007 [id number] r 10bowel 2005 Social History Social History Type Response Smoking Status Former Smoker, quit > 1 yr Sex Male Sex Representation Male (finding) .Outpt Proc * MD Benjamin Sara B: PERFORM, MODIFY, MODIFY Event Display: .Outpt Proc Authored Date: [id number] OUTPATIENT PROCEDURE Name: ALEJA REZA Patient Number: [id number] : 1950 Date of Service: 08/01/2024 OPERATIVE REPORT Diganosis: BCC Site: Right inner lower leg Operation performed: Electrodessication and Curretage Pathology Reviewed: yes Size after first curettin.2 cm OPERATION: After discussion of the risks, benefits, and alternatives to therapy, the patient had the opportunity to ask questions, and a signed consent was obtained. A time out was completed and scanned into the chart. The patient was taken to the surgical suite, and placed on the operating table in the supine position. The area was then prepped with ETOH. 1% lidocaine with epinephrine was administered until adequate anesthesia was obtained. Approximately 1 cc were given. A dermal curette was used to curette the lesion to normal skin in all areas. Electrocautery was performed at the base of the newly formed ulcer. The curettage and electrodessication was twice repeated. The patient tolerated the procedure well, and a sterile dressing with Vaseline was placed. The patient was given both written and verbal wound care instructions. The patient is to return to clinic in 6 months for re-evaluation and a skin examination; however, the patient was instructed to call us immediately if any problems develop in the interim. OPERATIVE REPORT Diganosis: BCC Site: left lateral lower leg Operation performed: Electrodessication and Curretage Pathology Reviewed: yes Size after first curettin.2 cm OPERATION: After discussion of the risks, benefits, and alternatives to therapy, the patient had the opportunity to ask questions, and a signed consent was obtained. A time out was completed and scanned into the chart. The patient was taken to the surgical suite, and placed on the operating table in the supine position. The area was then prepped with ETOH. 1% lidocaine with epinephrine was administered until adequate anesthesia was obtained. Approximately 1 cc were given. A dermal curette was used to curette the lesion to normal skin in all areas. Electrocautery was performed at the base of the newly formed ulcer. The curettage and electrodessication was twice repeated. The patient tolerated the procedure well, and a sterile dressing with Vaseline was placed. The patient was given both written and verbal wound care instructions. The patient is to return to clinic in 6 months for re-evaluation and a skin examination; however, the patient was instructed to call us immediately if any problems develop in the interim. Electronic Signature on File Electronically Reviewed/Signed by: Ekaterina Benjamin MD Author Signature Dt/Tm:08/01/2024 11:01 AM Department of Dermatology [facility] Patient Care team information Care Team Personnel Name: MD Darrion, Danette Shields Position: Referring Member Role: Primary Care Provider Address: [facility] Internal Medicine-[address] [address] [place] Care Team Related Persons Name: LUIS REZA
--- OUTSIDE RECORDS SUMMARY | 2024-09-28 09:51 | External Medical Summary | Continuity of Care Document ---
Author Name Unknown Organization [place] [address] [address] [facility] [address] [phone] Care Team Providers Care Rehab Care Assistant Name Role Phone Danette Maier Primary Care Physician [phone] [facility] [id number] Date(s): 08/12/24 - 08/12/24 [facility] [address] [facility] [address] [place] [phone] Discharge Disposition: Home or Self Care Attending Physician: MD Burnette Cassandra Referring Physician: MD Benjamin Sara B Allergies, [...] PO, Daily Start Date: 07/10/23 Status: Ordered Mental Status 08/12/24 Barriers to Learning one year None evide nt Mandatory Health Literacy Documentation Yes Health Literacy Communication Barriers N ever Primary Language Togolese Problem List Condition Confirmation Course Effective Dates Status Health St atus Informant Basal cell carcinoma of back Confirmed Active Basal cell carcinoma of right ear Confirmed Active Basal cell carcinoma of right thigh Confirmed Active Basal cell carcinoma of neck 1 Confirmed Active Nevus of face Confirmed Active Changing skin lesion Confirmed Active CLL (chronic lymphocytic leukemia) Confirmed Active Encounter for exam following cancer surgery Confirmed Active History of basal cell carcinoma of skin Confirmed Active Hypertension Confirmed Active Hypothyroid Confirmed Active Hepatitis 2 Confirmed Active Joint pain 3 Confirmed Active Kidney stone Confirmed Active Actinic keratoses Confirmed Active Skin lesion Confirmed Active Sun-damaged skin Confirmed Active Tobacco user Confirmed Active 1right anterior neck 2pt not sure what type. 3knees. Procedures Procedure Date Related Diagnosis Body Site Status Mohs micrographic surgery 08/12/24 Completed Electrodesiccation with curettage 08/01/24 Completed Electrodesiccation with [...] Right upper medial eyelid 6left rodriguez 7ED&C 27158 or 2013 9knee surgery 2001 l 2007 [id number] r 10bowel 2005 Social History Social History Type Response Smoking Status Former Smoker, quit > 1 yr Sex Male Sex Representation Male (finding) Dermatology Outpt Proc * KIRA Smith Rhonda: PERFORM Event Display: Dermatology Outpt Proc Authored Date: [id number] DERMATOLOGY OUTPATIENT PROCEDURE NOTE Name: ALEJA REZA Patient Number: [id number] : 1950 Date of Service: 08/12/2024 _ Electronic Signature on File Electronically Reviewed/Signed by: Verna mSith Author Signature Dt/Tm:08/12/2024 11:31 AM Electronically Reviewed/Signed by: Moni Burnette MD Cosigner Signature Dt/Tm: 08/13/2024 10:40 AM Department of Dermatology [facility] Patient Care team information Care Team Personnel Name: MD Darrion, Danette Shields Position: Referring Member Role: Primary Care Provider Address: [facility] [place] Internal Medicine[address] [address] [place] Care Team Related Persons Name: LUIS REZA
[2024-09-28] MEDS: ONDANSETRON INJ 2 MG/ML 2 ML VIAL IV STA (10:02)
[2024-09-28] MEDS: MoRPHine SULFATE 4 MG/ML 1 ML CARP\\VIAL IV STA (10:02)
[2024-09-28] MEDS: SODIUM CHLORIDE 0.9% 250 ML IV ONE (10:07)
[2024-09-28 10:09] LABS: iSTAT Creatinine 1.1 mg/dl (0.6-1.3); iSTAT Hemoglobin 13.3 g/dl (14.0-18.0); iSTAT Ionized Calcium 1.23 mmol/l (1.12-1.32); iSTAT Potassium 4.3 mmol/L (3.3-5.0)
[2024-09-28 10:14] LABS: Basophils # (auto) 0.07 K/uL (0.00-0.20); Basophils % (auto) 0.6 %; Eosinophils # (auto) 0.06 K/uL (0.00-0.50); Eosinophils % (auto) 0.5 %; Hemoglobin 12.8 g/dl (14.0-18.0); Immature Granulocytes # (auto) 0.03 K/uL (0.01-0.20); Immature Granulocytes % (auto) 0.3 %; Lymphocytes # (auto) 4.99 K/uL (1.20-3.40); Lymphocytes % (auto) 45.3 %; Mean Corpuscular Hemoglobin 28.6 pg (25.0-34.0); Mean Corpuscular Hgb Conc 32.8 g/dL (32.0-36.0); Mean Corpuscular Volume 87.1 fL (80.0-100.0); Mean Platelet Volume 10.5 fL (9.4-12.4); Monocytes # (auto) 0.58 K/uL (0.11-0.59); Monocytes % (auto) 5.3 %; Neutrophils # (auto) 5.28 K/uL (1.40-6.50); Platelet Count 162 K/uL (130-400); RDW Coefficient of Variation 13.8 % (11.5-14.5); RDW Standard Deviation 43.8 fL (36.4-46.3); Red Blood Count 4.48 M/uL (4.70-6.10); White Blood Count 11.01 K/ul (4.8-10.8)
[2024-09-28] MEDS: OPTIRAY 320 100ml IV ONE (10:14)
[2024-09-28 10:30] LABS: Appearance Urine Cloudy (Clear); Bacteria Urine Automated None Seen (None Seen); Bilirubin Urine Negative (Negative); Blood Urine 3+ (Negative); Cast Urine Automated 0-2 /lpf (0-2); Color Urine Yellow; Epithelial Cell Urine Auto 0-2 /hpf (0-2); Glucose Urine UA 3+ (Negative); Ketones Urine Negative (Negative); Leukocyte Esterase Urine Negative (Negative); Nitrite Urine Negative (Negative); Protein Urine 1+ (Negative); RBC Urine Automated >20 /hpf (0-2); Specific Gravity Urine 1.025 (1.000-1.030); Urobilinogen Urine Negative (Negative); WBC Urine Automated 0-5 /hpf (0-5)
[2024-09-28 10:36] LABS: Albumin Globulin Ratio 1.4 (0.9-2); Albumin Level 3.9 gm/dl (3.4-5.0); BUN Creatinine Ratio 24.1 (10-20); Bilirubin,Total 0.9 mg/dl (0.2-1.0); Calcium 9.2 mg/dl (8.6-10.3); Creatinine Clr Calc Pharmacy 73.4 ml/min; Globulin 2.7 gm/dl (2.5-4.0); Potassium 4.4 mmol/L (3.5-5.1); Total Protein 6.6 gm/dl (6.0-8.3)
--- NOTE | 2024-09-28 10:38 | CT Scan Report ---
EXAM: CT Abdomen and Pelvis With Intravenous Contrast INDICATION: Left flank pain. TECHNIQUE: Axial computed tomography images of the abdomen and pelvis with intravenous contrast. Sagittal and coronal reformatted images were created and reviewed. This CT exam was performed using one or more of the following dose reduction techniques: automated exposure control, adjustment of the mA and/or kV according to patient size, and/or use of iterative reconstruction technique. CONTRAST: 94 ml of Optiray 320 was administered intravenously. COMPARISON: 07/15/2024 FINDINGS: Limitations: None. Lung bases: No abnormality noted. Pleural space: New small left and trace right layering pleural effusions. Heart: Stable cardiomegaly. No pericardial effusion. Mediastinum: No abnormality noted. ABDOMEN: Liver: No abnormality noted. Gallbladder and bile ducts: No calcified stones or surrounding fluid. Pancreas: Homogeneous enhancement. No mass, inflammation or ductal dilation. Spleen: No significant abnormality noted. Adrenals: No significant abnormality noted. Kidneys and ureters: 12 x 9 mm distal right ureteral stone has migrated slightly to the UVJ. There is now a 6 mm stone at the left UVJ. There is new mild left hydroureteronephrosis. Increased nonobstructing stone burden in the left kidney and stable nonobstructing intrarenal stones right kidney. There is left perinephric edema. No urinary gas. Simple bilateral renal cysts noted. No follow-up necessary. No stones or hydronephrosis. Stomach and bowel: Moderate amounts of stool throughout the colon. Diverticulosis. No diverticulitis or obstruction. PELVIS: Appendix: Well seen and appears normal. Bladder: Urinary bladder is incompletely distended and appears mildly inflamed. No gas. Previously identified tiny stone in the lumen is no longer present. Reproductive: The prostate measures 6.0 x 5.2 x 5.6 cm. ABDOMEN and PELVIS: Intraperitoneal space: No free air. No significant fluid collection. Bones/joints: No acute changes. Soft tissues: Intact umbilical hernia repair. Left inguinal hernia noted containing fat. Vasculature: No abdominal aortic aneurysm. Lymph nodes: Stable shotty retroperitoneal nodes. No pathologically enlarged nodes identified. IMPRESSION: 1. Left 6 mm UVJ stone with mild left hydroureteronephrosis. 2. 12 x 9 mm distal right ureteral stone has migrated slightly to the right UVJ compared to 07/15/2024. No right hydronephrosis. 3. Cystitis. Tiny stone previously noted in the bladder is no longer identified. 4. Bilateral intrarenal stones noted with increased numbers on the left. Impression new small left and trace right pleural effusions. ACT 112: Negative or not required by law. Electronically signed by Tania Hernandez 09-28-2024 10:38 AM
--- NOTE | 2024-09-28 10:51 | Urology Consultation ---
Date of Consultation September 28, 2024 Assessment & Plan (1) Ureteral calculi: Plan 74-year-old gentleman with bilateral obstructing ureteral calculi Large stone on the right, slightly smaller stone on the left with more acute symptoms in the left implying more acute process We know the stone in the right was present at least 1-1/2 months ago Unfortunately, with bilateral obstructing ureteral calculi, intervention is necessitated Plan for cystoscopy, bilateral ureteral stent placement I will prioritize the left side, however if bilateral placement is possible we will certainly pursue it given the size of the stone and duration of stone presence, right sided placement may be quite challenging History of Present Illness History of Present Illness 74-year-old gentleman presenting to the emergency room with left flank pain who upon evaluation underwent CT scanning which shows a left UVJ stone but also with a relatively large right UVJ calculus Interestingly, he has minimal to no hydro on the right but relatively moderate hydro on the left His creatinine is currently 1.1approximately at baseline He additionally had a CT in July which showed the right distal ureteral stoneunfortunately the read of this report suggest that the stone was adjacent to the ureter rather than in it although the imaging seems to clearly show a ureteral calculus. All imaging was personally interpreted and reviewed He has some other small stones within each kidney and a tiny stone within the bladder Relatively enlarged prostate with some intravesical intrusion Allergies Allergy/AdvReac Type Severity Reaction Status Date / Time scallops Allergy Intermediate severe Verified 07/15/24 20:58 nausea / vomiting SHAHEEN Inhibitors Allergy Unknown Unknown Verified 07/15/24 20:58 Home Medications Medication Instructions Recorded Confirmed Type hydrochlorothiazide 25 mg tablet 25 mg PO QAM 06/28/19 09/28/24 History atorvastatin 40 mg tablet 40 mg PO HS #30 tabs 02/23/22 09/28/24 Rx levothyroxine 88 mcg tablet 88 mcg PO DAILYBB #1 tab 03/02/22 09/28/24 Rx sildenafil 100 mg tablet 100 mg PO UD PRN Erectile 03/29/22 09/28/24 History Dysfunction apixaban 5 mg tablet (Eliquis) 5 mg PO BID 07/04/22 09/28/24 History mecobalamin (vitamin B12) 500 mcg 500 mcg PO DAILY 05/11/23 09/28/24 History chewable tablet metformin 500 mg tablet 1,000 mg PO BID 05/11/23 09/28/24 History losartan 25 mg tablet 25 mg PO DAILY 06/06/24 09/28/24 History Patient History Medical History (Updated 09/28/24 @ 12:53 by Jesusita Quigley PA-C) Hepatitis per patient in 1970's had hepatitis - "worked in [employer]"- took medication 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 BROOKS-DX'D 2016 Arthritis Hypothyroidism Diabetes mellitus, type 2 Hypertension Hyperlipidemia Surgical History History of herniorrhaphy History of bowel resection FOR PERFORATED DIVERTICULITIS History of arthroscopy R/L KNEE Family History Mother Family history of diabetes mellitus Other Colorectal cancer Denies family history of Ovarian cancer Prostate cancer Myocardial infarction Breast cancer Social History Smoking Status: Never smoker Tobacco Type: Pipe and Smokeless Tobacco (Dip or Chew) Cigarettes Per Day: PIPE 1 X A DAY X MANY YRS; Second Hand Exposure: Yes (SPOUSE SMOKES); Do You Dip or Chew Tobacco: Yes (1 can per week ); Hx Alcohol Use: Yes Alcohol type: beer and hard liquor Alcohol Intake Frequency: 2-4 x/Month Hx Substance Use: No Preferred Language: Mauritanian Communication Ability: Effective Visual Impairment: No Limitations Hearing Ability: Use of Hearing Aid Insurance Broker Required: No Beliefs That Will Affect Care: None marital status: Current Living Situation: Spouse current occupational status: employed and retired 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 Physical Exam Constitutional: well developed and well nourished Neck: neck nontender Respiratory: normal respiratory effort; no respiratory distress and does not use accessory muscles Cardiovascular: Rate/Rhythm: regular rate Vessels: radial pulses present Extremities: no edema Gastrointestinal (Abdomen): Inspection/Auscultation: abdomen normal to inspection Percussion/Palpation: abdomen soft; abdomen nontender and no guarding Musculoskeletal: Head/Neck/Chest: normocephalic and head atraumatic Extremi ties: extremities normal to inspection Skin: no rashes and no lesions Trauma: no evidence of skin trauma Neurologic: awake; not obtunded Speech / Cognition: normal speech Motor/Sensory: no tremor Psychiatric: Orientation: alert and oriented x 3 Genitourinary: no CVA tenderness Lymphatic: no lymphadenopathy Results & Data Vital Signs (Past 12 Hours) Vital Signs Temp Pulse Resp BP Pulse Ox O2 Del Method 09/28/24 10:00 48 L 19 159/98 H 95 Room Air 09/28/24 09:57 64 18 93 09/28/24 09:57 60 09/28/24 09:56 98 Room Air 09/28/24 09:45 37.1 C 59 L 20 169/10 H 95 Room Air PG Care Time/CCT Total # of Minutes Spent Total Time Spent with Patient: Total time spent is greater than 50% in coordination of care (as documented) at patient's floor/unit and/or counseling patient: Coding Level of Care Code 28399 IN/OBS CONSULT LVL 4,60M Diagnoses Ureteral calculi N20.1
[2024-09-28] MEDS: MoRPHine SULFATE 10 MG/ML CARP/VIAL IV STA (11:05)
[2024-09-28] MEDS: SODIUM CHLORIDE 0.9% 1,000 ML IV ONE (11:07)
[2024-09-28] MEDS: cefTRIAXone SODIUM 2,000 MG/50 ML BAG IV STA (11:08)
--- NOTE | 2024-09-28 11:13 | History & Physical Report ---
Date of Service September 28, 2024 Assessment & Plan (1) Ureteral calculi: Plan: patient with left-sided flank and left upper quadrant pain x 1 day CTAP showing left 6 mm UVJ stone with mild left hydronephrosis, 12 x 9 mm distal right ureteral stone migrated slightly to right UVJ, no right hydronephrosis, cystitis, bilateral intrarenal stones UA 1+ protein, 3+ glucose, 3+ blood, >20 RBC noninfectious - VSS, afebrile mild leukocytosis but history of CLL below urology consulted planning for cystoscopy with bilateral stent placement 09/28 1300 N.p.o. -> can advance to T2 DM diet postoperatively 2G Rocephin given in ED, UA does not look infectious and no pyelonephritis seen on CT defer further ABX treatment Renal function stable, trend BMP Defer postoperative pain management to urology Zofran Prn (2) Bradycardia: Plan: patient reported to have heart rates dropping into mid 30s, lowest noted was 35 bpm On assessment patient was asymptomatic, rates improved with chronotropic effect/movementmid 60s EKG showed known history of A-fib, vent rate 44, unable to assess for AV block given no P waves he is not on any antiarrhythmics, CCB, or BB BP stable 159/91 Suspect 2/2 vasovagal response - 10 Mg of morphine in ED along with pain Overall nonconcerning at this time given asymptomatic, BP stable, EKG showing no abnormalities Continue to monitor on telemetry Differential includes sick sinus syndrome, could benefit from workup in the outpatient setting if patient becomes symptomatic or hypotensivecan consider atropine (3) Hypoxia: Plan: suspect secondary to morphine use and pain No documented low O2 stat wean O2 as tolerated (4) Hyperglycemia due to type 2 diabetes mellitus: Plan: Controlled on metformin at home; held Most recent A1C 7.3 Hyperglycemia - 2/2 to cinnamon roll for breakfast 348 on admission glucose recheck after IV fluids given = 219; defer IV insulin need, loose SSI below - loose SSI with target BSG range 110-140mg/dL, CF 50 - T2DM diet - BSG ACHS if eating, q6h if npo (5) Atrial fibrillation: Plan: previous history of Paroxysmal A-fib with history 2 ischemic strokes and 1 conversion to hemorrhagic stroke in spring 2021 - continue home Eliquis 5 mg BID; took this a.m. 09/28 - no rate or rhythm control, currently bradycardic - preop EKG ordered - Monitor on telemetry (6) Hypertension: Plan: Currently stable despite IV fluids and pain Continue home HCTZ and losartan (7) CLL (chronic lymphocytic leukemia): Plan: history of stable CLL, follows with heme/onc outpatient Leukocytosis - improved from baseline Plan Chronic stable diagnoses: hypothyroidism - continue levothyroxine HLD - continue statin Aortic stenosis - stable, echo 05/2024 mild LVH, EF 50 to 55%, mild aortic stenosis, mildly dilated ascending aorta 4.0 cm VTE ppx: Eliquis Diet: advance as tolerated to T2DM post op Dispo: Med/Tele with IV pain control Admission and Anticipated Discharge Date Admission Date: 09/28/24 History of Present Illness Chief Complaint: flank pain Primary Care Provider: Danette Maier MD Patient is a 74-year-old male with past medical history of CLL, A-fib on Eliquis ( history of 2 ischemic stroke, 1 hemorrhagic stroke conversion in the spring 2021), hypertension, hyperlipidemia, hypothyroidism, aortic stenosis. He presents today due to flank pain. CTAP showed bilateral renal stones as well as 6 mm left sided stone at UVJ - mild left sided hydronephrosis, right 12 x 9 mm distal uretal stone. he stated that this morning after eating breakfast he started with left-sided flank and left upper quadrant pain; It waxes and wanes, consistently 4/10, 9/10 at highest pain level. He stated he did have dark urine today, but but did not note bright red blood. Regarding his hyperglycemia, he typically has cereal and coffee for breakfast, today he had those things but added a cinnamon roll. He stated that his glucose is typically well-controlled. His last meal was breakfast this morning at 7 AM. Patient denies fever, chills, dyspnea, chest pain, nausea, vomiting, dysuria, hematuria, edema, numbness, tingling. He took all of his morning medications, including Eliquis. He wishes to be full code at this time. Allergies Allergy/AdvReac Type Severity Reaction Status Date / Time scallops Allergy Intermediate severe Verified 07/15/24 20:58 nausea / vomiting SHAHEEN Inhibitors Allergy Unknown Unknown Verified 07/15/24 20:58 Home Medications Medication Instructions Recorded Confirmed Type hydrochlorothiazide 25 mg tablet 25 mg PO QAM 06/28/19 09/28/24 History atorvastatin 40 mg tablet 40 mg PO HS #30 tabs 02/23/22 09/28/24 Rx levothyroxine 88 mcg tablet 88 mcg PO DAILYBB #1 tab 03/02/22 09/28/24 Rx sildenafil 100 mg tablet 100 mg PO UD PRN Erectile 03/29/22 09/28/24 History Dysfunction apixaban 5 mg tablet (Eliquis) 5 mg PO BID 07/04/22 09/28/24 History mecobalamin (vitamin B12) 500 mcg 500 mcg PO DAILY 05/11/23 09/28/24 History chewable tablet metformin 500 mg tablet 1,000 mg PO BID 05/11/23 09/28/24 History losartan 25 mg tablet 25 mg PO DAILY 06/06/24 09/28/24 History Past Med/Surg History Problem List (Updated 09/28/24 @ 12:53 by Jesusita Quigley PA-C) Hypoxia Bradycardia Hyperglycemia due to type 2 diabetes mellitus Ureteral calculi Aortic stenosis Ascending aorta dilatation Urinary frequency (Chronic) Dizziness (Acute) Vomiting (Acute) Abnormal CT scan, esophagus Mild ascending aorta dilatation Stroke due to embolism (Acute) Atrial fibrillation (Acute) Intractable nausea and vomiting (Acute) Constipation CLL (chronic lymphocytic leukemia) Osteoarthritis of left knee DVT prophylaxis Hypothyroidism Hyperlipidemia Hypertension Diabetes mellitus (Chronic) Encounter for pre-operative examination Medical History (Updated 09/28/24 @ 12:53 by Jesusita Quigley PA-C) Hepatitis per patient in 1970's had hepatitis - "worked in [employer]"- took medication 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 BROOKS-DX'D 2016 Arthritis Hypothyroidism Diabetes mellitus, type 2 Hypertension Hyperlipidemia Surgical History History of herniorrhaphy History of bowel resection FOR PERFORATED DIVERTICULITIS History of arthroscopy R/L KNEE Family History Mother Family history of diabetes mellitus Other Colorectal cancer Denies family history of Ovarian cancer Prostate cancer Myocardial infarction Breast cancer Social History Smoking Status: Never smoker Tobacco Type: Pipe and Smokeless Tobacco (Dip or Chew) Cigarettes Per Day: PIPE 1 X A DAY X MANY YRS; Second Hand Exposure: Yes (SPOUSE SMOKES); Do You Dip or Chew Tobacco: Yes (1 can per week ); Hx Alcohol Use: Yes Alcohol type: beer and hard liquor Alcohol Intake Frequency: 2-4 x/Month Hx Substance Use: No Preferred Language: Portuguese Communication Ability: Effective Visual Impairment: No Limitations Hearing Ability: Use of Hearing Aid Talent Specialist Required: No Beliefs That Will Affect Care: None marital status: Current Living Situation: Spouse current occupational status: employed and retired 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 Non-toxic appearing. HEENT- EOMI, mucous membranes moist. Hearing grossly intact. Heart-normal S1 and S2. No murmurs, rubs or gallops. Lungs-clear bilaterally, no respiratory distress, no accessory muscle use. Abdomen-normal bowel sounds and soft. No ascites noted. Tender LUQ. Lower abdominal scar, patient stated from perforated bowel/diverticulitis. Extremities- no clubbing, cyanosis, or edema. Rheumatologic-normal range of motion. Psychiatric-normal affect. Results & Data Results & Data Vital Signs (Past 12 Hours) Vital Signs Temp Pulse Resp BP Pulse Ox O2 Del Method 09/28/24 10:00 48 L 19 159/98 H 95 Room Air 09/28/24 09:57 64 18 93 09/28/24 09:57 60 09/28/24 09:56 98 Room Air 09/28/24 09:45 37.1 C 59 L 20 169/10 H 95 Room Air Laboratory Results Reviewed CBC, CMP, UA Diagnostic Findings AP CT Medications Administered ED course: 1.5 mL NSS, 2G Rocephin, Zofran, 10 mg IV morphine Admission: 1g IV Tylenol ECG Additional Comments: ordered Code Status & VTE Plan Code Status full VTE Prophylaxis Plan VTE Prophylaxis will be ordered: Yes Supervising Physician Co-Signing Physician Notes Patient seen and examined, chart reviewed, case discussed with Jesusita Quigley PA-C and I agree with the assessment and plan as above except as otherwise noted Labs and images reviewed 74-year-old male with past medical history of type II DM, A-fib on Eliquis, CLL, prior TIA/CVA with hemorrhage, and nephrolithiasis who presents with obstructive nephrolithiasis. Left 6 mm UVJ stone with mild left hydro, 12.9 distal right ureteral stone without hydro. Bilateral intrarenal stones. There is no GILL. Patient is hyperglycemic on admission. Urology was consulted. Anticipate cystoscopy, bilateral ureteral stent placement. Recommended for medical admission. UA does not show evidence of superimposed infection and there is not radiographic evidence of Javier. Antibiotics deferred. Agree with admission, urologic intervention, and trending BMP/CMP. If signs of infection develop then will continue antibiotics, otherwise we will defer and single dose of Rocephin has been given in the ER. Agree with multimodal pain c ontrol, Zofran for nausea. Patient is hyperglycemic, typically well-controlled diabetes with A1c near but not at goal on metformin monotherapy. BSG greater than 300 on admission. He did have a cinnamon bun this morning for breakfast shortly before the ER. Following fluids on recheck BSG improving add on SSI. N.p.o. pending urologic intervention. Additionally in the setting of pain and after receiving morphine patient was transiently bradycardic. He was not hypotensive at any point. Asymptomatic with this. EKG shows A-fib with slow ventricular response. He has chronotropic response and when moving in bed heart rate immediately improved into the 60s. Suspect asymptomatic bradycardia possibly with some vagal effect from pain and morphine. Given his long standing history of A-fib differential does include developing sick sinus syndrome however suspect this is less likely and again has chronotropic response and normal pressures. Has not had chest pain, this chest pain-free on admission may continue to follow at this time. Patient developed symptomatic bradycardia/hypotension then atropine x 1 and evaluate further for possible pacemaker at that time. This is not currently indicated. Agree with above. PG Care Time/CCT Total # of Minutes Spent Total Time Spent with Patient: Total time spent is greater than 50% in coordination of care (as documented) at patient's floor/unit and/or counseling patient: Coding Level of Care Code 09435 INT INP/OBS CARE Diagnoses Ureteral calculi N20.1 Bradycardia R00.1 Hypoxia R09.02 Hyperglycemia due to type 2 diabetes mellitus E11.65 Atrial fibrillation I48.91 Atrial fibrillation type: unspecified Hypertension I10 CLL (chronic lymphocytic leukemia) C91.10 (5) Atrial fibrillation Atrial fibrillation type: unspecified Qualified Code(s): I48.91 - Unspecified atrial fibrillation
[2024-09-28] MEDS: ACETAMINOPHEN 1,000 MG/100 ML VIAL IV STA (12:09)
[2024-09-28] MEDS ORDERED: fentaNYL citrate PF 100 MCG/2 ML VIAL ONE (12:51)
[2024-09-28] MEDS ORDERED: LIDOCAINE 2% 2 ML VIAL/AMP(20MG/ML) INFIL ONE (12:51)
[2024-09-28] MEDS ORDERED: DEXAMETHASONE SOD INJ 4 MG/ML VIAL ONE (12:51)
[2024-09-28] MEDS ORDERED: SUCCINYLCHOLINE CHLORIDE 20 MG/ML 10 ML VIAL IV ONE (12:51)
[2024-09-28] MEDS ORDERED: PROPOFOL IV EMULSION 10 MG/ML 20 ML VIAL IV ONE (12:52)
[2024-09-28] MEDS ORDERED: ONDANSETRON INJ 2 MG/ML 2 ML VIAL ONE (12:52)
--- NOTE | 2024-09-28 13:19 | Anesthesiology Consultation ---
Date of Service September 28, 2024 Assessment & Plan Chart Review Chart Review: Acceptable Risk for Surgery and direct entry midwife initiated Consults Requested none History Surgery Operation Date: 09/28/24 13:00 Proposed Procedures p Cystoscopy, bilateral stent placement(Bilateral) - Damaso Mason MD Height/Weight Height: 5 ft 9 in Weight: 114.7 kg Allergies Allergy/AdvReac Type Severity Reaction Status Date / Time scallops Allergy Intermediate severe Verified 07/15/24 20:58 nausea / vomiting SHAHEEN Inhibitors Allergy Unknown Unknown Verified 07/15/24 20:58 Medications Home Medications Medication Instructions Recorded Confirmed Last Taken hydrochlorothiazide 25 mg tablet 25 mg PO QAM 06/28/19 09/28/24 09/28/24 atorvastatin 40 mg tablet 40 mg PO HS #30 tabs 02/23/22 09/28/24 09/27/24 levothyroxine 88 mcg tablet 88 mcg PO DAILYBB #1 tab 03/02/22 09/28/24 09/27/24 sildenafil 100 mg tablet 100 mg PO UD PRN Erectile 03/29/22 09/28/24 Unknown Dysfunction apixaban 5 mg tablet (Eliquis) 5 mg PO BID 07/04/22 09/28/24 09/28/24 mecobalamin (vitamin B12) 500 mcg 500 mcg PO DAILY 05/11/23 09/28/24 07/15/24 07:00 chewable tablet metformin 500 mg tablet 1,000 mg PO BID 05/11/23 09/28/24 09/28/24 losartan 25 mg tablet 25 mg PO DAILY 06/06/24 09/28/24 09/28/24 NPO Date Last Intake of Fluids: 09/28/24 Time Last Intake of Fluids: 08:30 Date Last Intake of Solids: 09/28/24 Time Last Intake of Solids: 07:00 Last Intake of Solids Comment: Bowl of cereal, cinnamon bun. Past Medical History Medical History (Updated 09/28/24 @ 13:18 by Carroll Parada MD) Hepatitis per patient in 1970's had hepatitis - "worked in [employer]"- took medication 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 BROOKS-DX'D 2016 Arthritis Hypothyroidism Diabetes mellitus, type 2 Hypertension Hyperlipidemia AFIB Past Family History Family History Mother Family history of diabetes mellitus Other Colorectal cancer Denies family history of Ovarian cancer Prostate cancer Myocardial infarction Breast cancer Past Surgical History Surgical History History of herniorrhaphy History of bowel resection FOR PERFORATED DIVERTICULITIS History of arthroscopy R/L KNEE Past Anesthesia History No Hx of Anesthesia Complications History of PONV No Hx of PONV Social History Smoking Status: Never smoker tobacco type: pipe and smokeless tobacco Smoking cigarettes per day: PIPE 1 X A DAY X MANY YRS, quit 's, chewing tobacco at 0830 this morning Do You Dip or Chew Tobacco: Yes (1 can per week ) Hx Alcohol Use: Yes Alcohol type: beer and hard liquor alcohol intake frequency: a few times a week Hx Substance Use: No Physical Exam Vital Signs Last Vital Signs Temp 37.1 C 09/28/24 09:45 Pulse 62 09/28/24 12:40 Resp 13 09/28/24 12:40 BP 146/96 H 09/28/24 12:40 Pulse Ox 97 09/28/24 12:40 O2 Del Method Nasal Cannula 09/28/24 12:40 O2 Flow Rate 3 09/28/24 12:40 Testing Laboratory Results 09/28/24 09:55 09/28/24 09:55 Urine Color Yellow 09/28/24 10:12 Urine Appearance Cloudy (Clear) A 09/28/24 10:12 Urine pH 5.0 (4.5-7.5) 09/28/24 10:12 Ur Specific Ferriday 1.025 (1.000-1.030) 09/28/24 10:12 Urine Protein 1+ (Negative) H 09/28/24 10:12 Urine Glucose (UA) 3+ (Negative) H 09/28/24 10:12 Urine Ketones Negative (Negative) 09/28/24 10:12 Urine Nitrite Negative (Negative) 09/28/24 10:12 Ur Leukocyte Esterase Negative (Negative) 09/28/24 10:12 Urine WBC (Auto) 0-5 /hpf (0-5) 09/28/24 10:12 Urine RBC (Auto) >20 /hpf (0-2) H 09/28/24 10:12 U Hyaline Cast (Auto) 0-2 /lpf (0-2) 09/28/24 10:12 U Epithel Cells (Auto) 0-2 /hpf (0-2) 09/28/24 10:12 Urine Bacteria (Auto) None Seen (None Seen) 09/28/24 10:12 09/28/24 09/28/24 12:09 09:56 POC Glucose 219 H POC Glucose (other) 342 H
[2024-09-28] MEDS ORDERED: ePHEDrine sulfate 50 MG/ML AMP IV PRN (13:34)
[2024-09-28] MEDS ORDERED: HYDROmorphone INJ 2 MG/ML SYR/VIAL IV PRN (13:34)
[2024-09-28] MEDS ORDERED: PROMETHAZINE HCL 6.25 MG in SODIUM CHLORIDE 0.9% 50 ML IV PRN (13:34)
[2024-09-28] MEDS ORDERED: fentaNYL citrate PF 100 MCG/2 ML VIAL IV PRN (13:34)
[2024-09-28] MEDS ORDERED: ATROPINE SULFATE 0.1 MG/ML 10ML SYR IV PRN (13:34)
[2024-09-28] MEDS ORDERED: ONDANSETRON INJ 2 MG/ML 2 ML VIAL IV PRN ×2 (13:34→15:36)
[2024-09-28] MEDS ORDERED: ePHEDrine sulfate 50 MG/ML AMP ONE (13:51)
--- NOTE | 2024-09-28 14:03 | Operative Report ---
PG Post Operative Report Pre & Post Diagnosis Operation Date: 09/28/24 13:00 Pre-Op Diagnosis: Bilateral obstructing ureteral calculi Post-Op Diagnosis: Bilateral obstructing ureteral calculi I identified the patient and participated in the time-out.: Yes Procedure Operation Date: 09/28/24 13:00 Actual Procedures p Cystoscopy, Bilateral Ureteral Stent Placement(Bilateral) - Damaso Mason MD Surgeon Damaso aMson MD Home Health Clinician none Estimated Blood Loss 0 Findings Consistent with Post-Op Diagnosis Specimens none Description of Procedure The patient was identified in the preoperative holding area, appropriate informed consents were reviewed and completed and the patient was transferred to the operative suite. Upon arrival, appropriate antibiotics and anesthesia were administered and the patient was placed in dorsal lithotomy position and prepped and draped in sterile fashion. To begin the case I passed 21 Citizen [place] cystoscope with 30 degree lens. Inspection revealed a healthy-appearing urethra. He has moderately enlarged prostate but I was able to navigate the scope around it and easily identify the right and left ureteral orifices. There were a few small stone fragments within the bladder. There were no stones visible from either ureter but he had a somewhat edematous right distal ureter consistent with a distal right ureteral calculus. Given his acute symptoms of open on the left I elected to start in the left side and I was able to intubate the left UO with a sensor wire. Immediately after the wire bypassed the stone there was a discharge of bloody, old urine. I was able to subsequently place a 6 Citizen [place] by 26 cm double-J stent which was draining murky urine from the left kidney. I then turned my attention to the right side. There is a large right distal ureteral calculus which I was able to gently navigate a sensor wire around. This took a little bit of work but was able to successfully advance the wire to the level of the kidney. I then proceeded to place a 6 [place] by 26 cm double-J stent on the right side with a good curl in the kidney as well as the bladder. There was good drainage from the right side as well. At that time I elected to conclude the case. His bladder was emptied and he was reversed of anesthesia and taken to the recovery room in stable condi tion. There were no complications. I attest to the content of the Intraoperative Record and any orders documented therein. Any exceptions are noted below.
--- NOTE | 2024-09-28 14:40 | Anesthesiology Progress Note ---
Date of Service September 28, 2024 Anesthesia Post Procedure Vital Signs Vital Signs: Temp Pulse Pulse Resp BP BP Pulse Ox 09/28/24 12:40 62 13 146/96 H 97 09/28/24 12:00 62 13 159/91 H 97 09/28/24 11:33 54 L 15 154/116 H 97 09/28/24 11:12 131/90 09/28/24 11:03 52 L 26 H 95 09/28/24 11:00 48 L 13 131/90 94 09/28/24 10:00 48 L 19 159/98 H 95 09/28/24 09:57 64 18 93 09/28/24 09:57 60 09/28/24 09:56 98 09/28/24 09:45 37.1 C 59 L 20 169/10 H 95 O2 Del Method O2 Flow Rate 09/28/24 12:40 Nasal Cannula 3 09/28/24 12:00 09/28/24 11:33 09/28/24 11:12 09/28/24 11:03 09/28/24 11:00 Room Air 09/28/24 10:00 Room Air 09/28/24 09:57 09/28/24 09:57 09/28/24 09:56 Room Air 09/28/24 09:45 Room Air Pain Intensity Left Flank: Pain Intensity: 8 Transfer of Care Handoff Completed per policy Notes Mental Status: alert / awake / arousable and participated in evaluation Patient Amnestic to Procedure: Yes Nausea / Vomiting: adequately controlled Pain: adequately controlled Airway Patency, RR, SpO2: stable & adequate BP & HR: stable & adequate Hydration State: stable & adequate Anesthetic Complications: no major complications apparent
[2024-09-28] MEDS ORDERED: DOCUSATE SODIUM 100 MG CAP PO PRN (15:36)
[2024-09-28] MEDS ORDERED: DEXTROSE 50% 50 ML SYRINGE IV PRN (15:36)
[2024-09-28] MEDS ORDERED: GLUCOSE 40% GEL 15 GM TUBE PO PRN (15:36)
[2024-09-28] MEDS ORDERED: GLUCAGON FOR INJ 1 MG VIAL SQ PRN (15:36)
[2024-09-28] MEDS ORDERED: CARBOHYDRATES FOR HYPOGLYCEMIA PO PRN (15:36)
[2024-09-28] MEDS ORDERED: GLUCOSE 10 TAB/TUBE PO PRN (15:36)
[2024-09-28] MEDS ORDERED: INSULIN ASPART PER UNIT CHARGE SC SCH (18:00)
[2024-09-28] MEDS: INSULIN ASPART PER UNIT CHARGE SC SCH (18:06)
[2024-09-28] MEDS: APIXABAN 5 MG TABLET PO SCH (21:13)
[2024-09-28] MEDS: ATORVASTATIN 40 MG TAB PO SCH (21:13)
[2024-09-29] MEDS: LEVOTHYROXINE SODIUM 88 MCG TABLET PO SCH (05:33)
[2024-09-29 07:37] LABS: Basophils # (auto) 0.06 K/uL (0.00-0.20); Basophils % (auto) 0.5 %; Eosinophils # (auto) 0.08 K/uL (0.00-0.50); Eosinophils % (auto) 0.7 %; Hematocrit (blood only) 36.8 % (42.0-52.0); Hemoglobin 11.9 g/dl (14.0-18.0); Immature Granulocytes # (auto) 0.04 K/uL (0.01-0.20); Immature Granulocytes % (auto) 0.4 %; Lymphocytes # (auto) 4.94 K/uL (1.20-3.40); Lymphocytes % (auto) 43.3 %; Mean Corpuscular Hemoglobin 28.5 pg (25.0-34.0); Mean Corpuscular Hgb Conc 32.3 g/dL (32.0-36.0); Mean Platelet Volume 10.4 fL (9.4-12.4); Monocytes # (auto) 0.56 K/uL (0.11-0.59); Monocytes % (auto) 4.9 %; Neutrophils # (auto) 5.74 K/uL (1.40-6.50); Neutrophils % (auto) 50.2 %; Platelet Count 157 K/uL (130-400); RDW Coefficient of Variation 14.1 % (11.5-14.5); RDW Standard Deviation 45.5 fL (36.4-46.3); Red Blood Count 4.18 M/uL (4.70-6.10); White Blood Count 11.42 K/ul (4.8-10.8)
--- NOTE | 2024-09-29 07:37 | Fluoroscopy Report ---
FL retrograde includes kub CLINICAL HISTORY: B/L STENT COMPARISON STUDY: CT of the abdomen and pelvis September 28, 2024. FLUOROSCOPY TIME: 8 seconds. Ka,r: 3.28 mGy FLUOROSCOPIC IMAGES: 3 FINDINGS: Fluoroscopy was provided during bilateral ureteral stent insertion. The stents are well-pos itioned. IMPRESSION: Fluoroscopy provided during bilateral ureteral stent insertion. ACT 112: Negative or not required by law. Electronically signed by: Garrett García M.D. 09/29/2024 7:35 AM
[2024-09-29 07:40] VITALS: RESP 18; O2SAT 94
[2024-09-29 07:55] LABS: Calcium 8.9 mg/dl (8.6-10.3); Creatinine Clr Calc Pharmacy 71.9 ml/min; Potassium 4.2 mmol/L (3.5-5.1)
[2024-09-29] MEDS: LOSARTAN POTASSIUM 25 MG TAB PO SCH (08:37)
[2024-09-29] MEDS: hydroCHLOROthiazide 25 MG TAB PO SCH (08:37)
--- NOTE | 2024-09-29 10:24 | Urology Progress Note ---
Date of Service September 29, 2024 Assessment & Plan (1) Bilateral ureteral obstruction: Plan: Status post bilateral stent placement for bilateral obstructing calculi I think it is reasonable to discharge him home Plan for follow-up as an outpatient for definitive surgery via bilateral ureteroscopy and laser lithotripsy Admission and Anticipated Discharge Date Admission Date: September 28, 2024 Subjective Subjectively doing fairly well this morning His left flank pain is considerably better His only real discomfort is some back pain with voidingthis is somewhat expected with indwelling ureteral stents He has some hematuria which is clearingkind of a dark color this morning Otherwise feels well and is anxious to go home Physical Exam Constitutional: well developed and well nourished Respiratory: no respiratory distress Cardiovascular: Extremities: no pedal edema Gastrointestinal (Abdomen): Inspection/Auscultation: abdomen normal to inspection Results & Data Vital Signs (Past 12 Hours) Vital Signs Temp Pulse Resp BP Pulse Ox O2 Del Method 09/29/24 07:39 36.8 C 61 18 137/87 94 Room Air 09/29/24 03:36 36.6 C 92 H 16 135/88 98 Room Air 09/28/24 23:30 36.9 C 68 18 133/84 95 Room Air PG Care Time/CCT Total # of Minutes Spent Total Time Spent with Patient: Total time spent is greater than 50% in coordination of care (as documented) at patient's floor/unit and/or counseling patient: Coding Level of Care Code 16111 SUB INP/OBS CARE /25MIN Diagnoses Bilateral ureteral obstruction N13.5
--- NOTE | 2024-09-29 11:10 | Discharge Summary ---
Discharge Summary Date of Service September 29, 2024 Principal Dx & Hospital Course #1 = Principal Diagnosis (1) Ureteral calculi: Presented with left-sided flank and left upper quadrant pain x 1 day - CT A/P showing left 6 mm UVJ stone with mild left hydronephrosis, 12 x 9 mm distal right ureteral stone migrated slightly to right UVJ, no right hydronephrosis, cystitis, bilateral intrarenal stones - Mild leukocytosis, but history of CLL below. Afebrile, UA noninfectious - Urology consulted -- s/p bilateral stent placement for bilateral obstructing calculi on 09/28/[address] Mason > Follow-up outpatient for definitive surgery via bilateral ureteroscopy and laser lithotripsy - Discharged home on Cipro x 3 days per urology's recommendation and tramadol 50 mg x 10 tablets for breakthrough pain (2) Bradycardia: Patient reported to have heart rates dropping into mid 30s, lowest noted was 35 bpm - On assessment patient was asymptomatic, rates improved with chronotropic effect/movementmid 60s - EKG showed known history of A-fib, vent rate 44, unable to assess for AV block given no P waves - He is not on any antiarrhythmics, CCB, or BB - Suspect secondary to vasovagal response to pain/pain medications received in ED - Overall nonconcerning at this time given asymptomatic, BP stable, EKG showing no abnormalities - Could benefit from workup for sick sinus syndrome in outpatient setting (3) Hyperglycemia due to type 2 diabetes mellitus: Controlled on metformin at home; held while inpatient and resumed on discharge Most recent A1C 7.3 Plan Chronic stable diagnoses: Hypothyroidism: continue levothyroxine HLD: continue statin Aortic stenosis: stable, echo 05/2024 mild LVH, EF 50 to 55%, mild aortic stenosis, mildly dilated ascending aorta 4.0 cm CLL: Stable. Follows with heme-onc outpatient Hypertension: Continue losartan and HCTZ A-fib: Continue Eliquis 5 mg BID VTE PPx: Eliquis CODE STATUS: Full code Dispo: Discharged home on 09/29/2024 Notes For Next Care Provider Consider workup for sick sinus syndrome outpatient Follow-up with urology outpatient for definitive stone treatment Medication Changes From Visit Cipro x 3 days, tramadol x 10 tablets No changes to home meds Admission HPI Per Admitting Provider Patient is a 74-year-old male with past medical history of CLL, A-fib on Eliquis ( history of 2 ischemic stroke, 1 hemorrhagic stroke conversion in the spring 2021), hypertension, hyperlipidemia, hypothyroidism, aortic stenosis. He presents today due to flank pain. CTAP showed bilateral renal stones as well as 6 mm left sided stone at UVJ - mild left sided hydronephrosis, right 12 x 9 mm distal uretal stone. he stated that this morning after eating breakfast he started with left-sided flank and left upper quadrant pain; It waxes and wanes, consistently 4/10, 9/10 at highest pain level. He stated he did have dark urine today, but but did not note bright red blood. Regarding his hyperglycemia, he typically has cereal and coffee for breakfast, today he had those things but added a cinnamon roll. He stated that his glucose is typically well-controlled. His last meal was breakfast this morning at 7 AM. Patient denies fever, chills, dyspnea, chest pain, nausea, vomiting, dysuria, hematuria, edema, numbness, tingling. He took all of his morning medications, including Eliquis. He wishes to be full code at this time. Admission Exam Per Admitting Provider The patient is awake, alert and oriented 3, well developed and well nourished, normocephalic and atraumatic, in no acute distress. Non-toxic appearing. HEENT- EOMI, mucous membranes moist. Hearing grossly intact. Heart-normal S1 and S2. No murmurs, rubs or gallops. Lungs-clear bilaterally, no respiratory distress, no accessory muscle use. Abdomen-normal bowel sounds and soft. No ascites noted. Tender LUQ. Lower abdominal scar, patient stated from perforated bowel/diverticulitis. Extremities- no clubbing, cyanosis, or edema. Rheumatologic-normal range of motion. Psychiatric-normal affect. Discharge Exam General: No acute distress, nondiaphoretic, well-developed, well-nourished. Skin: The skin was without rashes, erythema, edema, or bruising. Cardiac: Regular rate and rhythm without murmurs gallops or rubs. Pulm: Clear to auscultation bilaterally without wheezes, rales or rhonchi. No respiratory distress. 94% on room air. Abdominal: Soft, nontender, nondistended. Bowel sounds present. Scar on lower abdomen. Neuro: A&O x3. No focal neurological deficits. Discharge Plan Discharge Items Patient Disposition: Home - Self-Care Reason For Visit: KIDNEY STONE Discharge Diagnosis: Bilateral ureteral obstruction with bilateral stent placement Activity: Per Instructions section Non-emergency contact: Primary Care Provider and Urologist Call non-emergency contact if: you have any medication questions, your symptoms worsen, your pain is not controlled and you have a fever Follow-up/Referrals: Damaso Mason MD [Physician] - (Follow-up as directed for definitive stone treatment) Danette Maier MD [Primary Care Provider] - 10/21/24 1:00 pm (Follow-up in 1-2 weeks) Diet: Carb Consistent or DM2 Addtl Attending Provider Instructions: Mr. Gomez, You were admitted to the hospital because of a bilateral kidney stones. This is what caused your left-sided flank pain that brought you to the hospital. You were evaluated by the urology team, and Dr. Mason performed bilateral stent placements. Upon discharge from the hospital: * Take Ciprofloxacin (oral antibiotic) 500 mg twice daily x 3 days. * Alternate between Tylenol and ibuprofen as your first-line pain control. These are aqbe-ept-bxebfgt (OTC), so no prescription is required. * Take tramadol 50 mg every 6 hours NEEDED for breakthrough pain. This is a narcotic pain medication. Do not drive or operate heavy machinery when taking this. * Follow-up with urology outpatient for definitive stone treatment. Their office will call you with your appointment details. * Follow-up with your PCP in 1-2 weeks. * Continue your home medications as prescribed. While you have a ureteral stent in place: Some discomfort is normal. Certain movements may trigger pain or a feeling that you need to urinate. You may also feel mild soreness or pressure before or during urination. These symptoms should go away a few days after the stent is removed. Your urine may be slightly pink or red. This is due to bleeding caused by minor irritation from the stent. This may happen on and off while you have the stent, it is not harmful and is to be expected. Medication to help minimize discomfort or bladder spasms, or to prevent infection may be prescribed. Take this as directed. Drink plenty of fluids to help flush out your urinary tract. If you go home with a catheter, wash with soapy water and a fresh washcloth twice daily. We recommend mild bar soap such as Dial or Dove. When to call [facility] [place] [place] [facility] at [phone]: Your urine contains heavy blood clots You are constantly leaking urine Fever of 101F or higher, chills, nausea, or vomiting Your pain is not relieved with medication The end of the stent comes out of your urethra Please return to the hospital if you experience any of the following: Pain that is not controlled by the medicine given, repeated vomiting or unable to keep down fluids, fever of 101 F or higher, solid red or brown urine, urine with a lot of blood clots, foul-smelling or cloudy urine, unable to urinate for 8 hours with increasing bladder pressure, weakness, dizziness, passing out, chest pain, or difficulty breathing. It was a pleasure taking care of you while you were in the hospital, Jo Stevens PA-C Pending Studies at Discharge: No Stand-Alone Forms: My [facility], Smoking Cessation Medications and DC Order Prescriptions: New ciprofloxacin HCl 500 mg tablet 500 mg PO BID Qty: 6 0RF tramadol 50 mg tablet 50 mg PO Q6H PRN (Reason: breakthrough pain) Qty: 10 0RF Continued levothyroxine 88 mcg tablet 88 mcg PO DAILYBB Qty: 1 0RF sildenafil 100 mg tablet 100 mg PO UD PRN (Reason: Erectile Dysfunction) Rx Instructions: 100 mg po daily prn. [facility] administer 30 minutes to 4 hours before activity Eliquis 5 mg tablet 5 mg PO BID mecobalamin (vitamin B12) 500 mcg tablet,chewable 500 mcg PO DAILY losartan 25 mg tablet 25 mg PO DAILY hydrochlorothiazide 25 mg Tablet 25 mg PO QAM metformin 500 mg tablet 1,000 mg PO BID atorvastatin 40 mg Tablet 40 mg PO HS Qty: 30 0RF Discharge Orders: Discharge Order (Routine); Ordered 09/29/24 Ordered By: Jo Stevens Admission Data Admit Date/Time: 09/28/24 11:50 Attending Provider: Philip Quintana Admit Provider: Jesusita Quigley Primary Care Provider: Danette Maier Other Providers: Damaso Mason; Onel Baker Other Interventions: Discharge Summary Assessment (RN) Last Done: 09/29/24 12:19 Hospital Stay Data Consultations 09/28/24 10:46 Consult Urology Stat ED Decision to Admit Stat Procedures Performed Operation Date: 09/28/24 13:00 Actual Procedures p Cystoscopy, Bilateral Ureteral Stent Placement(Bilateral) - Damaso Mason MD Diagnostic Imagining Performed 09/28/24 FL retrograde includes kub Routine 09/28/24 09:56 CT abd pelvis IV con only Stat Pending Results Patient Have Any Pending Studies at Discharge: No Discharge Instructions Given to Patient (Per Discharging Provider) Mr. Gomez, Adonay were admitted to the hospital because of a bilateral kidney stones. This is what caused your left-sided flank pain that brought you to the hospital. You were evaluated by the urology team, and Dr. Mason performed bilateral stent placements. Upon discharge from the hospital: * Take Ciprofloxacin (oral antibiotic) 500 mg twice daily x 3 days. * Alternate between Tylenol and ibuprofen as your first-line pain control. These are pshl-rhd-hlmyvgs (OTC), so no prescription is required. * Take tramadol 50 mg every 6 hours NEEDED for breakthrough pain. This is a narcotic pain medication. Do not drive or operate heavy machinery when taking this. * Follow-up with urology outpatient for definitive stone treatment. Their office will call you with your appointment details. * Follow-up with your PCP in 1-2 weeks. * Continue your home medications as prescribed. While you have a ureteral stent in place: Some discomfort is normal. Certain movements may trigger pain or a feeling that you need to urinate. You may also feel mild soreness or pressure before or during urination. These symptoms should go away a few days after the stent is removed. Your urine may be slightly pink or red. This is due to bleeding caused by mi nor irritation from the stent. This may happen on and off while you have the stent, it is not harmful and is to be expected. Medication to help minimize discomfort or bladder spasms, or to prevent i nfection may be prescribed. Take this as directed. Drink plenty of fluids to help flush out your urinary tract. If you go home with a catheter, wash with soapy water and a fresh washcloth twice daily. We recommend mild bar soap such as Dial or Dove. When to call [facility] at [phone]: Your urine contains heavy blood clots You are constantly leaking urine Fever of 101F or higher, chills, nausea, or vomiting Your pain is not relieved with medication The end of the stent comes out of your urethra Please return to the hospital if you experience any of the following: Pain that is not controlled by the medicine given, repeated vomiting or unable to keep down fluids, fever of 101 F or higher, solid red or brown urine, urine with a lot of blood clots, foul-smelling or cloudy urine, unable to urinate for 8 hours with increasing bladder pressure, weakness, dizziness, passing out, chest pain, or difficulty breathing. It was a pleasure taking care of you while you were in the hospital, Jo Stevens PA-C Supervising Physician Co-Signing Physician Notes I personally examined the patient and verified all burch points of history and exam, discussed case, and agree with decision making with Filiberto Stevens PAC still feeling some spasms when he urinates, but feels well enough to go home. urology input appreciated vitals noted nad heent nc at mmm breathing unlabored no accessory muscles good effort skin no rashes no pallor or icterus ureterolithiasis - now s/p cysto/stenting. stable for home. outpt urology f/u otherwise as above Total Time Total Time Spent Total Time Spent (In Minutes): Greater than 30 minutes spent completing this discharge process including direct patient care, medication reconciliation, documentation, review of labs and images, and coordination of care. Coding Level of Care Code 45442 INP/OBS DISCH >30 MIN Diagnoses Ureteral calculi N20.1 Bradycardia R00.1 Hyperglycemia due to type 2 diabetes mellitus E11.65
[2024-09-29 11:21] VITALS: BP 142/94; PULSE 57; TEMP 98.6
--- NOTE | 2024-09-29 11:41 | Communication Note ---
Date of Service: September 29, 2024 By CMS guidelines, a determination that the admission or continued stay is not medically necessary has been made by a member of the UR committee and gordo olsen for this hospital stay, therefore a Code 44 will be completed and the Inpatient admission will be changed to outpatient.
--- NOTE | 2024-09-29 13:07 | Electrocardiogram Report ---
Test Reason : Blood Pressure : */* mmHG Vent. Rate : 44 BPM Atrial Rate : * BPM P-R Int : * ms QRS Dur : 110 ms QT Int : 476 ms P-R-T Axes : * 1 3 degrees QTcB Int : 406 ms Atrial fibrillation with slow ventricular response with premature ventricular or aberrantly conducted complexes Abnormal ECG When compared with ECG of 21-Mar-2022 17:24, Previous ECG has undetermined rhythm, needs review Confirmed by Martínez Shirley ([id number]) on 09/29/2024 1:06:52 PM Referred By: REFERRED SELF Confirmed By: Martínez Shirley
--- NOTE | 2024-10-01 16:15 | Electrocardiogram Report ---
Test Reason : Blood Pressure : */* mmHG Vent. Rate : 54 BPM Atrial Rate : * BPM P-R Int : * ms QRS Dur : 110 ms QT Int : 440 ms P-R-T Axes : * -1 -2 degrees QTcB Int : 417 ms Atrial fibrillation with slow ventricular response Abnormal ECG Confirmed by Damaso Licea ([id number]) on 10/01/2024 4:15:17 PM Referred By: REFERRED SELF Confirmed By: Damaso Licea
== END 2024-09-29 13:34 | disposition home or self-care (01) | DRG 660 ==
LOC: ED 09:45 → INTOOBSV 11:50 → 2N 11:50 → SUATTDRO 11:50 → OR 12:40
DX: Z86.73 Personal history of transient ischemic attack (TIA), and cerebral infarction without residual deficits; F17.290 Nicotine dependence, other tobacco product, uncomplicated; R00.1 Bradycardia, unspecified; I35.0 Nonrheumatic aortic (valve) stenosis; Z79.899 Other long term (current) drug therapy; Z79.84 Long term (current) use of oral hypoglycemic drugs; N13.2 Hydronephrosis with renal and ureteral calculous obstruction; Z79.890 Hormone replacement therapy; E03.9 Hypothyroidism, unspecified; E78.5 Hyperlipidemia, unspecified; Z79.01 Long term (current) use of anticoagulants; I48.91 Unspecified atrial fibrillation; C91.10 Chronic lymphocytic leukemia of B-cell type not having achieved remission; I10 Essential (primary) hypertension; Z88.8 Allergy status to other drugs, medicaments and biological substances; E11.65 Type 2 diabetes mellitus with hyperglycemia